=== PATIENT | female | born 1945 | race Caucasian/White ===

== ENCOUNTER → 2017-04-14 | Outpatient (CLI) | payer MEDICARE, OTHER ==
--- NOTE | 2017-04-14 10:21 | REPMRS ---
Patient History The patient states she had a clinical breast exam in February 2017. Family history of endometrial cancer in mother at age 70. Benign radio exam breast specimen of the right breast, May 13, 2016. Benign stereotatic loc for ea lesion of the right breast, May 13, 2016. Digital Mammo Screening Bilat: April 14, 2017 - Exam #: [id number] Bilateral CC and MLO view(s) were taken. Technologist: Luz Ceballos Technologist Prior study comparison: April 01, 2016, right breast digital mammo diagnostic unilateral performed at [facility]. March 25, 2016, bilateral digital mammo screening bilat performed at [facility]. FINDINGS: There are scattered fibroglandular densities. There has been no change in the appearance of the mammogram from the prior studies. There is a mild amount of residual fibroglandular tissue which is fairly symmetric. There is no interval development of dominant mass, architectural distortion, or clustered microcalcification suggestive of malignancy. ASSESSMENT: BI-RADS/ACR category 1 mammogram. Negative. Recommendation Routine screening mammogram in 1 year (for women over age 40). This mammogram was interpreted with the aid of an FDA-approved computer-aided dectection system. Electronically Signed By: Stoney Gregory MD 04/14/17 [id number]
== END ==
LOC: M RAD 08:45
PROVIDERS: ATTEND Family Medicine
DX: Z12.31 Encounter for screening mammogram for malignant neoplasm of breast (principal); Z80.49 Family history of malignant neoplasm of other genital organs

== ENCOUNTER 2018-04-13 23:46 | Inpatient (IN) | payer MEDICARE, OTHER ==
[2018-04-14] MEDS ORDERED: PROPOFOL 200 MG/20 ML VIAL As Ordered ×2 (01:38→13:58)
[2018-04-14] MEDS: PROPOFOL 200 MG/20 ML VIAL IV (01:46)
[2018-04-14 02:26] LABS: BASO % 0.2 % (0.0-1.0); EOS % 0.1 % (0.0-3.0); HEMOGLOBIN 9.4 g/dl (12.0-15.5); IMMATURE GRANULOCYTE % 0.4 % (0-3.0); LYMPH # 1.4 10^3/uL (1.5-4.5); LYMPH % 10.5 % (24.0-44.0); MEAN CORPUSCULAR HGB CONC 32.4 g/dl (32.0-36.5); MEAN CORPUSCULAR VOLUME 77.1 fl (80.0-96.0); MONO # 1.2 10^3/uL (0.0-0.8); MONO % 8.9 % (0.0-5.0); NEUTROPHILS # 10.8 10^3/uL (1.8-7.7); NEUTROPHILS % 79.9 % (36.0-66.0); PLATELET COUNT, AUTOMATED 302 10^3/uL (150-450); RED BLOOD COUNT 3.76 10^6/uL (4.00-5.40); RED CELL DISTRIBUTION WIDTH 18.1 % (11.5-14.5); WHITE BLOOD COUNT 13.6 10^3/uL (4.0-10.0)
[2018-04-14 02:38] LABS: INR 1.11; PROTHROMBIN TIME 14.5 SECONDS (12.1-14.4)
[2018-04-14 02:39] LABS: PARTIAL THROMBOPLASTIN TIME 26.1 SECONDS (25.4-37.6)
[2018-04-14] MEDS ORDERED: ACETAMINOPHEN TAB 650MG DOSE (2X325MG) PO (02:45)
[2018-04-14 02:51] LABS: ANION GAP 8 MEQ/L (8-16); BLOOD UREA NITROGEN 15 MG/DL (7-18); CALCIUM LEVEL 7.7 MG/DL (8.8-10.2); CARBON DIOXIDE LEVEL 24 MEQ/L (21-32); CHLORIDE LEVEL 101 MEQ/L (98-107); CREATININE FOR GFR 0.71 MG/DL (0.55-1.30); GLOMERULAR FILTRATION RATE > 60.0 (>39); GLUCOSE, FASTING 111 MG/DL (70-100); SODIUM LEVEL 133 MEQ/L (136-145)
[2018-04-14] MEDS: NS 1,000 ML IV ×3 (03:38→18:03)
[2018-04-14] MEDS: PERCOCET 5MG/325MG TAB PO ×2 (03:40→09:23)
[2018-04-14] MEDS: LEVOTHYROXINE 88MCG TABLET (0.088 MG) PO (05:38)
[2018-04-14 06:10] LABS: HEMATOCRIT 30.3 % (36.0-47.0); HEMOGLOBIN 9.7 g/dl (12.0-15.5); MEAN CORPUSCULAR HEMOGLOBIN 24.6 pg (27.0-33.0); MEAN CORPUSCULAR VOLUME 76.9 fl (80.0-96.0); PLATELET COUNT, AUTOMATED 309 10^3/uL (150-450); RED BLOOD COUNT 3.94 10^6/uL (4.00-5.40); RED CELL DISTRIBUTION WIDTH 18.1 % (11.5-14.5); WHITE BLOOD COUNT 13.8 10^3/uL (4.0-10.0)
[2018-04-14 06:24] LABS: INR 1.07
[2018-04-14 06:25] LABS: PARTIAL THROMBOPLASTIN TIME 26.7 SECONDS (25.4-37.6)
[2018-04-14] MEDS: ENOXAPARIN 40 MG/0.4 ML SYRINGE (J1650) SC (07:14)
[2018-04-14] MEDS: FLUTICASONE PROP 0.05% NASAL SPRAY 16 GM (FLONASE) (09:16)
[2018-04-14] MEDS: SENOKOT S TAB PO ×2 (09:16→20:08)
[2018-04-14] MEDS: MYCOLOG CREAM 15 GM (NYSTATIN/TRIAMCINOLONE) TOP ×2 (09:16→20:11)
[2018-04-14] MEDS: PERPHENAZINE 2 MG TAB PO (09:16)
[2018-04-14] MEDS: IRBESARTAN 150 MG TAB PO (09:17)
[2018-04-14] MEDS: amLODIPine 10 MG TAB PO (09:17)
[2018-04-14] MEDS: levETIRAcetam 250MG TABLET (KEPPRA) PO ×2 (09:17→20:08)
[2018-04-14] MEDS: METOPROLOL TART 50 MG TAB PO ×2 (09:18→20:09)
[2018-04-14] MEDS ORDERED: ePHEDrine SULFATE 25 MG/5 ML(5MG/ML) SYRINGE As Ordered (13:58)
[2018-04-14] MEDS ORDERED: LIDOCAINE 2% INJ 100 MG/5 ML SDV (FOR ANES.) As Ordered (13:58)
[2018-04-14] MEDS ORDERED: MIDAZOLAM INJ 2 MG/2 ML VIAL (J2250) As Ordered (13:58)
[2018-04-14] MEDS ORDERED: dexameTHASONE 4 MG/ML 1ML VIAL (J1100) As Ordered (13:58)
[2018-04-14] MEDS ORDERED: fentaNYL 100 MCG/2 ML INJECTION (J3010) As Ordered (13:58)
[2018-04-14] MEDS: ceFAZolin 2 GM/D5W 50 ML IV BAG (J0690 PER 500MG) As Ordered (14:00)
[2018-04-14] MEDS ORDERED: METOCLOPRAMIDE INJ 10MG/2ML VIAL (J2765) As Ordered (14:13)
[2018-04-14] MEDS: ceFAZolin 1GM INJ (J0690 PER 500MG) As Ordered (14:17)
[2018-04-14] MEDS ORDERED: HYDROmorphone HCL 2 MG/ML 1ML VIAL (J1170) As Ordered (15:05)
[2018-04-14] MEDS ORDERED: ONDANSETRON 4MG/2ML VIAL (J2405) As Ordered (15:07)
[2018-04-14] MEDS ORDERED: PHENYLephrine HCL 500 MCG/5 ML (100MCG/ML) SYRINGE (J2370) As Ordered (15:51)
[2018-04-14] MEDS: LR 1,000 ML IV (16:45)
[2018-04-14] MEDS ORDERED: MEPERIDINE INJ 25 MG/ML VIAL (J2175) IV (16:45)
[2018-04-14] MEDS ORDERED: PERCOCET 5MG/325MG TAB PO (16:45)
[2018-04-14] MEDS ORDERED: fentaNYL 100 MCG/2 ML INJECTION (J3010) IV (16:45)
[2018-04-14] MEDS ORDERED: ONDANSETRON 4MG/2ML VIAL (J2405) IV (16:45)
[2018-04-14] MEDS: MORPHINE 4 MG/ML 1ML VIAL/SYRINGE (J2270) IV ×2 (18:02→23:26)
[2018-04-14] MEDS: ATORVASTATIN 10 MG TAB PO (20:08)
[2018-04-14] MEDS: NYSTATIN 100,000 UNITS/GM TOPICAL PWD 15 GM TOP (22:42)
[2018-04-15] MEDS: UNRESOLVED CLARIFICATION ENTRY XX (00:01)
[2018-04-15] MEDS: zolPIDEM TARTRATE 5 MG TAB PO ×2 (01:08→22:28)
[2018-04-15] MEDS: PERCOCET 5MG/325MG TAB PO ×4 (01:09→16:52)
[2018-04-15] MEDS: LEVOTHYROXINE 88MCG TABLET (0.088 MG) PO (05:06)
[2018-04-15] MEDS: NS 1,000 ML IV (05:06)
[2018-04-15] MEDS ORDERED: MOM 30ML SUSPENSION UDC PO (06:45)
[2018-04-15 09:21] LABS: HEMATOCRIT 28.6 % (36.0-47.0); HEMOGLOBIN 9.1 g/dl (12.0-15.5); MEAN CORPUSCULAR HEMOGLOBIN 25.1 pg (27.0-33.0); MEAN CORPUSCULAR HGB CONC 31.8 g/dl (32.0-36.5); PLATELET COUNT, AUTOMATED 271 10^3/uL (150-450); RED BLOOD COUNT 3.62 10^6/uL (4.00-5.40); RED CELL DISTRIBUTION WIDTH 18.4 % (11.5-14.5); WHITE BLOOD COUNT 11.8 10^3/uL (4.0-10.0)
[2018-04-15 09:43] LABS: ANION GAP 8 MEQ/L (8-16); BLOOD UREA NITROGEN 7 MG/DL (7-18); CALCIUM LEVEL 7.9 MG/DL (8.8-10.2); CARBON DIOXIDE LEVEL 25 MEQ/L (21-32); CHLORIDE LEVEL 107 MEQ/L (98-107); CREATININE FOR GFR 0.62 MG/DL (0.55-1.30); GLOMERULAR FILTRATION RATE > 60.0 (>39); GLUCOSE, FASTING 105 MG/DL (70-100); POTASSIUM SERUM 3.9 MEQ/L (3.5-5.1); SODIUM LEVEL 140 MEQ/L (136-145)
[2018-04-15] MEDS: PREVNAR 13 VACCINE SYRINGE (CPT CODE:90670) IM (10:11)
[2018-04-15] MEDS: ENOXAPARIN 40 MG/0.4 ML SYRINGE (J1650) SC (10:12)
[2018-04-15] MEDS: MOM 30ML SUSPENSION UDC PO (10:13)
[2018-04-15] MEDS: IRBESARTAN 150 MG TAB PO (10:13)
[2018-04-15] MEDS: METOPROLOL TART 50 MG TAB PO ×2 (10:14→21:59)
[2018-04-15] MEDS: MIRALAX *UNIT DOSE* 17GM PACKET PO (10:14)
[2018-04-15] MEDS: amLODIPine 10 MG TAB PO (10:14)
[2018-04-15] MEDS: PERPHENAZINE 2 MG TAB PO ×2 (10:15→22:12)
[2018-04-15] MEDS: SENOKOT S TAB PO ×2 (10:15→22:00)
[2018-04-15] MEDS: levETIRAcetam 250MG TABLET (KEPPRA) PO ×2 (10:15→21:59)
[2018-04-15] MEDS: NYSTATIN 100,000 UNITS/GM TOPICAL PWD 15 GM TOP ×2 (10:16→22:01)
[2018-04-15] MEDS: MYCOLOG CREAM 15 GM (NYSTATIN/TRIAMCINOLONE) TOP ×2 (10:16→22:01)
[2018-04-15] MEDS: FLUTICASONE PROP 0.05% NASAL SPRAY 16 GM (FLONASE) (10:17)
[2018-04-15] MEDS ORDERED: PILL CRUSHER/CUTTER 1 EACH XX (10:30)
[2018-04-15] MEDS: MORPHINE 4 MG/ML 1ML VIAL/SYRINGE (J2270) IV ×2 (13:48→22:01)
[2018-04-15] MEDS: LANSOPRAZOLE SUSPENSION 30 MG/10 ML ORAL SYRINGE (FIRST-LANSOPRAZOLE) PO (17:21)
[2018-04-15] MEDS: ATORVASTATIN 10 MG TAB PO (21:59)
[2018-04-16] MEDS: PERCOCET 5MG/325MG TAB PO ×2 (02:15→10:22)
[2018-04-16] MEDS: MORPHINE 4 MG/ML 1ML VIAL/SYRINGE (J2270) IV ×2 (06:43→15:50)
[2018-04-16] MEDS: LEVOTHYROXINE 88MCG TABLET (0.088 MG) PO (06:43)
[2018-04-16 09:06] LABS: HEMATOCRIT 26.4 % (36.0-47.0); HEMOGLOBIN 8.5 g/dl (12.0-15.5); MEAN CORPUSCULAR HEMOGLOBIN 24.9 pg (27.0-33.0); MEAN CORPUSCULAR HGB CONC 32.2 g/dl (32.0-36.5); MEAN CORPUSCULAR VOLUME 77.4 fl (80.0-96.0); PLATELET COUNT, AUTOMATED 271 10^3/uL (150-450); RED BLOOD COUNT 3.41 10^6/uL (4.00-5.40); RED CELL DISTRIBUTION WIDTH 18.6 % (11.5-14.5); WHITE BLOOD COUNT 10.5 10^3/uL (4.0-10.0)
[2018-04-16 09:23] LABS: ANION GAP 9 MEQ/L (8-16); BLOOD UREA NITROGEN 8 MG/DL (7-18); CARBON DIOXIDE LEVEL 28 MEQ/L (21-32); CHLORIDE LEVEL 103 MEQ/L (98-107); CREATININE FOR GFR 0.61 MG/DL (0.55-1.30); GLOMERULAR FILTRATION RATE > 60.0 (>39); GLUCOSE, FASTING 104 MG/DL (70-100); POTASSIUM SERUM 3.6 MEQ/L (3.5-5.1); SODIUM LEVEL 140 MEQ/L (136-145)
[2018-04-16] MEDS: METOPROLOL TART 50 MG TAB PO (10:04)
[2018-04-16] MEDS: amLODIPine 10 MG TAB PO (10:04)
[2018-04-16] MEDS: levETIRAcetam 250MG TABLET (KEPPRA) PO (10:04)
[2018-04-16] MEDS: PERPHENAZINE 2 MG TAB PO (10:05)
[2018-04-16] MEDS: SENOKOT S TAB PO (10:06)
[2018-04-16] MEDS: ENOXAPARIN 40 MG/0.4 ML SYRINGE (J1650) SC (10:06)
[2018-04-16] MEDS: MOM 30ML SUSPENSION UDC PO (10:06)
[2018-04-16] MEDS: IRBESARTAN 150 MG TAB PO (10:06)
[2018-04-16] MEDS: MYCOLOG CREAM 15 GM (NYSTATIN/TRIAMCINOLONE) TOP (10:07)
[2018-04-16] MEDS: NYSTATIN 100,000 UNITS/GM TOPICAL PWD 15 GM TOP (10:07)
[2018-04-16] MEDS: FLUTICASONE PROP 0.05% NASAL SPRAY 16 GM (FLONASE) (10:08)
[2018-04-16] MEDS: LANSOPRAZOLE SUSPENSION 30 MG/10 ML ORAL SYRINGE (FIRST-LANSOPRAZOLE) PO (10:09)
[2018-04-16] MEDS: MIRALAX *UNIT DOSE* 17GM PACKET PO (10:09)
== END 2018-04-16 16:10 | DRG 494 ==
LOC: M ED 23:46 → M ED INP 04-14 02:40 → M MSPAV 04-14 03:21 → M MS5PR 04-14 13:08
PROC: 0QSK04Z Reposition Left Fibula with Internal Fixation Device, Open Approach (ICD-10-PCS; principal; 2018-04-14 13:00)
PROC: 0QSH04Z Reposition Left Tibia with Internal Fixation Device, Open Approach (ICD-10-PCS; 2018-04-14 13:00)
DX: S82.852A Displaced trimalleolar fracture of left lower leg, initial encounter for closed fracture (principal); W18.39XA Other fall on same level, initial encounter; Y92.012 Bathroom of single-family (private) house as the place of occurrence of the external cause; F31.9 Bipolar disorder, unspecified; I10 Essential (primary) hypertension; E78.5 Hyperlipidemia, unspecified; E03.9 Hypothyroidism, unspecified; G40.909 Epilepsy, unspecified, not intractable, without status epilepticus; M17.0 Bilateral primary osteoarthritis of knee; K21.9 Gastro-esophageal reflux disease without esophagitis; Z90.49 Acquired absence of other specified parts of digestive tract; Z79.899 Other long term (current) drug therapy

== ENCOUNTER 2018-04-16 16:15 | Inpatient (IN) | payer MEDICARE, OTHER ==
[2018-04-16] MEDS ORDERED: ONDANSETRON 4 MG TAB (S0181) PO (18:45)
[2018-04-16] MEDS: PERPHENAZINE 2 MG TAB PO (21:02)
[2018-04-16] MEDS: METOPROLOL TART 50 MG TAB PO (21:03)
[2018-04-16] MEDS: SENNA 8.6 MG TAB (SENOKOT) PO (21:03)
[2018-04-16] MEDS: ASPIRIN 81 MG ENTERIC TAB PO (21:03)
[2018-04-16] MEDS: ATORVASTATIN 10 MG TAB PO (21:03)
[2018-04-16] MEDS: levETIRAcetam 250MG TABLET (KEPPRA) PO (21:03)
[2018-04-16] MEDS: MYCOLOG CREAM 15 GM (NYSTATIN/TRIAMCINOLONE) TOP (21:04)
[2018-04-16] MEDS: DOCUSATE SODIUM 100 MG CAP PO (21:04)
[2018-04-16] MEDS: PERCOCET 5MG/325MG TAB PO (21:04)
[2018-04-16] MEDS: LIDOCAINE 5% (LIDODERM) PATCH TD ×2 (21:05)
[2018-04-16] MEDS: traZODone 25MG PER 1/2 TABLET PO (23:21)
[2018-04-17 00:21] LABS: APPEARANCE, URINE CLEAR (CLEAR); BACTERIA, URINE AUTO 1+ (NEGATIVE); BILIRUBIN, URINE AUTO NEGATIVE (NEGATIVE); BLOOD, URINE BLOOD NEGATIVE (NEGATIVE); COLOR, URINE YELLOW (YELLOW); GLUCOSE, URINE (UA) AUTO NEGATIVE (NEGATIVE); KETONE, URINE AUTO NEGATIVE (NEGATIVE); LEUKOCYTE ESTERASE, URINE AUTO NEGATIVE (NEGATIVE); NITRITE, URINE AUTO NEGATIVE (NEGATIVE); PROTEIN, URINE AUTO NEGATIVE (NEGATIVE); RBC, URINE AUTO 1 /HPF (0-3); SPECIFIC GRAVITY URINE AUTO 1.011 (1.002-1.035); SQUAMOUS EPITHELIAL CELL UR AU 0 /HPF (0-6); UROBILINOGEN, URINE AUTO 0.2 mg/dL (0.0-2.0); WBC, URINE AUTO 2 /HPF (0-3)
[2018-04-17] MEDS: PERCOCET 5MG/325MG TAB PO ×4 (04:11→21:59)
[2018-04-17] MEDS: LEVOTHYROXINE 88MCG TABLET (0.088 MG) PO (05:30)
[2018-04-17 06:02] LABS: BASO % 0.5 % (0.0-1.0); EOS # 0.1 10^3/uL (0.0-0.50); EOS % 1.4 % (0.0-3.0); HEMATOCRIT 25.4 % (36.0-47.0); HEMOGLOBIN 8.2 g/dl (12.0-15.5); IMMATURE GRANULOCYTE % 0.4 % (0-3.0); LYMPH # 1.7 10^3/uL (1.5-4.5); LYMPH % 20.9 % (24.0-44.0); MEAN CORPUSCULAR HEMOGLOBIN 24.8 pg (27.0-33.0); MEAN CORPUSCULAR HGB CONC 32.3 g/dl (32.0-36.5); MEAN CORPUSCULAR VOLUME 76.7 fl (80.0-96.0); MONO % 12.8 % (0.0-5.0); NEUTROPHILS # 5.2 10^3/uL (1.8-7.7); PLATELET COUNT, AUTOMATED 262 10^3/uL (150-450); RED BLOOD COUNT 3.31 10^6/uL (4.00-5.40); RED CELL DISTRIBUTION WIDTH 18.6 % (11.5-14.5); WHITE BLOOD COUNT 8.1 10^3/uL (4.0-10.0)
[2018-04-17 06:35] LABS: ALBUMIN 2.2 GM/DL (3.2-5.2); ALBUMIN/GLOBULIN RATIO 0.65 (1.00-1.93); ALKALINE PHOSPHATASE 52 U/L (45-117); ALT/SGPT 15 U/L (12-78); ANION GAP 6 MEQ/L (8-16); AST/SGOT 21 U/L (7-37); BILIRUBIN,TOTAL 0.3 MG/DL (0.2-1.0); BLOOD UREA NITROGEN 10 MG/DL (7-18); CALCIUM LEVEL 7.9 MG/DL (8.8-10.2); CARBON DIOXIDE LEVEL 29 MEQ/L (21-32); CHLORIDE LEVEL 104 MEQ/L (98-107); CREATININE FOR GFR 0.52 MG/DL (0.55-1.30); GLOMERULAR FILTRATION RATE > 60.0 (>39); GLUCOSE, FASTING 116 MG/DL (70-100); POTASSIUM SERUM 3.5 MEQ/L (3.5-5.1); SODIUM LEVEL 139 MEQ/L (136-145); TOTAL PROTEIN 5.6 GM/DL (6.4-8.2)
[2018-04-17] MEDS: MYCOLOG CREAM 15 GM (NYSTATIN/TRIAMCINOLONE) TOP ×2 (09:00→22:01)
[2018-04-17] MEDS: **NOTE PATIENT COMMENT** MISC XX ×2 (09:00)
[2018-04-17] MEDS ORDERED: ENOXAPARIN 40 MG/0.4 ML SYRINGE (J1650) SC (09:00)
[2018-04-17] MEDS: NYSTATIN 100,000 UNITS/GM TOPICAL PWD 15 GM TOP (09:22)
[2018-04-17] MEDS: ENOXAPARIN 40 MG/0.4 ML SYRINGE (J1650) SC (09:22)
[2018-04-17] MEDS: PERPHENAZINE 2 MG TAB PO (09:23)
[2018-04-17] MEDS: FLUTICASONE PROP 0.05% NASAL SPRAY 16 GM (FLONASE) (09:23)
[2018-04-17] MEDS: IRBESARTAN 150 MG TAB PO (09:24)
[2018-04-17] MEDS: amLODIPine 10 MG TAB PO (09:24)
[2018-04-17] MEDS: METOPROLOL TART 50 MG TAB PO ×2 (09:24→22:00)
[2018-04-17] MEDS: levETIRAcetam 250MG TABLET (KEPPRA) PO ×2 (09:25→22:01)
[2018-04-17] MEDS: PANTOPRAZOLE 40MG TAB (PROTONIX) PO (09:25)
[2018-04-17] MEDS: DOCUSATE SODIUM 100 MG CAP PO ×2 (09:25→22:00)
[2018-04-17] MEDS: LIDOCAINE 5% (LIDODERM) PATCH TD ×2 (21:57→21:58)
[2018-04-17] MEDS: PERPHENAZINE 8 MG PO (21:58)
[2018-04-17] MEDS: ATORVASTATIN 10 MG TAB PO (21:59)
[2018-04-17] MEDS: SENNA 8.6 MG TAB (SENOKOT) PO (22:00)
[2018-04-17] MEDS: ASPIRIN 81 MG ENTERIC TAB PO (22:00)
[2018-04-17] MEDS: traZODone 25MG PER 1/2 TABLET PO (22:14)
[2018-04-18] MEDS: LEVOTHYROXINE 88MCG TABLET (0.088 MG) PO (05:35)
[2018-04-18] MEDS: PERCOCET 5MG/325MG TAB PO ×4 (05:37→20:48)
[2018-04-18] MEDS: DOCUSATE SODIUM 100 MG CAP PO ×2 (09:00→20:32)
[2018-04-18] MEDS: **NOTE PATIENT COMMENT** MISC XX ×2 (09:00)
[2018-04-18] MEDS: METOPROLOL TART 50 MG TAB PO ×3 (09:32→20:46)
[2018-04-18] MEDS: PANTOPRAZOLE 40MG TAB (PROTONIX) PO (09:32)
[2018-04-18] MEDS: amLODIPine 10 MG TAB PO (09:32)
[2018-04-18] MEDS: levETIRAcetam 250MG TABLET (KEPPRA) PO ×2 (09:32→20:32)
[2018-04-18] MEDS: IRBESARTAN 150 MG TAB PO (09:32)
[2018-04-18] MEDS: ENOXAPARIN 40 MG/0.4 ML SYRINGE (J1650) SC (09:33)
[2018-04-18] MEDS: PERPHENAZINE 8 MG PO ×2 (09:33→20:32)
[2018-04-18] MEDS: FLUTICASONE PROP 0.05% NASAL SPRAY 16 GM (FLONASE) (09:33)
[2018-04-18] MEDS: NYSTATIN 100,000 UNITS/GM TOPICAL PWD 15 GM TOP (09:34)
[2018-04-18] MEDS: MYCOLOG CREAM 15 GM (NYSTATIN/TRIAMCINOLONE) TOP ×2 (09:35→20:33)
[2018-04-18] MEDS: SENNA 8.6 MG TAB (SENOKOT) PO (20:32)
[2018-04-18] MEDS: ASPIRIN 81 MG ENTERIC TAB PO (20:32)
[2018-04-18] MEDS: ATORVASTATIN 10 MG TAB PO (20:33)
[2018-04-18] MEDS: LIDOCAINE 5% (LIDODERM) PATCH TD ×2 (20:39→20:51)
[2018-04-18] MEDS: traZODone 25MG PER 1/2 TABLET PO (23:25)
[2018-04-19] MEDS: LEVOTHYROXINE 88MCG TABLET (0.088 MG) PO (05:25)
[2018-04-19] MEDS: PERCOCET 5MG/325MG TAB PO ×4 (05:26→21:03)
[2018-04-19 07:26] LABS: BASO % 0.5 % (0.0-1.0); EOS # 0.1 10^3/uL (0.0-0.50); EOS % 1.5 % (0.0-3.0); HEMATOCRIT 26.2 % (36.0-47.0); HEMOGLOBIN 8.3 g/dl (12.0-15.5); IMMATURE GRANULOCYTE % 0.5 % (0-3.0); LYMPH # 1.4 10^3/uL (1.5-4.5); LYMPH % 23.3 % (24.0-44.0); MEAN CORPUSCULAR HEMOGLOBIN 24.6 pg (27.0-33.0); MEAN CORPUSCULAR HGB CONC 31.7 g/dl (32.0-36.5); MEAN CORPUSCULAR VOLUME 77.7 fl (80.0-96.0); MONO # 0.8 10^3/uL (0.0-0.8); MONO % 12.8 % (0.0-5.0); NEUTROPHILS # 3.8 10^3/uL (1.8-7.7); NEUTROPHILS % 61.4 % (36.0-66.0); PLATELET COUNT, AUTOMATED 319 10^3/uL (150-450); RED BLOOD COUNT 3.37 10^6/uL (4.00-5.40); RED CELL DISTRIBUTION WIDTH 18.5 % (11.5-14.5); WHITE BLOOD COUNT 6.2 10^3/uL (4.0-10.0)
[2018-04-19 07:39] LABS: ANION GAP 8 MEQ/L (8-16); BLOOD UREA NITROGEN 10 MG/DL (7-18); CALCIUM LEVEL 8.1 MG/DL (8.8-10.2); CARBON DIOXIDE LEVEL 27 MEQ/L (21-32); CHLORIDE LEVEL 104 MEQ/L (98-107); CREATININE FOR GFR 0.62 MG/DL (0.55-1.30); GLOMERULAR FILTRATION RATE > 60.0 (>39); GLUCOSE, FASTING 121 MG/DL (70-100); POTASSIUM SERUM 3.3 MEQ/L (3.5-5.1); SODIUM LEVEL 139 MEQ/L (136-145)
[2018-04-19] MEDS: levETIRAcetam 250MG TABLET (KEPPRA) PO ×2 (08:37→21:02)
[2018-04-19] MEDS: DOCUSATE SODIUM 100 MG CAP PO ×2 (08:37→21:03)
[2018-04-19] MEDS: PANTOPRAZOLE 40MG TAB (PROTONIX) PO (08:37)
[2018-04-19] MEDS: amLODIPine 10 MG TAB PO (08:37)
[2018-04-19] MEDS: IRBESARTAN 150 MG TAB PO (08:37)
[2018-04-19] MEDS: PERPHENAZINE 8 MG PO ×2 (08:37→21:01)
[2018-04-19] MEDS: NYSTATIN 100,000 UNITS/GM TOPICAL PWD 15 GM TOP (08:39)
[2018-04-19] MEDS: FLUTICASONE PROP 0.05% NASAL SPRAY 16 GM (FLONASE) (08:39)
[2018-04-19] MEDS: MYCOLOG CREAM 15 GM (NYSTATIN/TRIAMCINOLONE) TOP ×2 (08:40→21:05)
[2018-04-19] MEDS: **NOTE PATIENT COMMENT** MISC XX ×2 (08:40)
[2018-04-19] MEDS: ENOXAPARIN 40 MG/0.4 ML SYRINGE (J1650) SC (09:51)
[2018-04-19] MEDS: METOPROLOL TART 50 MG TAB PO ×2 (09:52→21:02)
[2018-04-19] MEDS: POTASSIUM CHLORIDE 10 MEQ SR TABLET PO (16:12)
[2018-04-19] MEDS: POTASSIUM CHLORIDE 10% LIQ 20 MEQ/15 ML UDC PO (17:37)
[2018-04-19] MEDS: ATORVASTATIN 10 MG TAB PO (21:02)
[2018-04-19] MEDS: SENNA 8.6 MG TAB (SENOKOT) PO (21:02)
[2018-04-19] MEDS: ASPIRIN 81 MG ENTERIC TAB PO (21:03)
[2018-04-19] MEDS: LIDOCAINE 5% (LIDODERM) PATCH TD ×2 (21:04)
[2018-04-20] MEDS: traZODone 25MG PER 1/2 TABLET PO ×2 (00:10→22:54)
[2018-04-20] MEDS: PERCOCET 5MG/325MG TAB PO ×4 (03:23→21:47)
[2018-04-20] MEDS: LEVOTHYROXINE 88MCG TABLET (0.088 MG) PO (06:52)
[2018-04-20 07:29] LABS: ANION GAP 7 MEQ/L (8-16); BLOOD UREA NITROGEN 10 MG/DL (7-18); CALCIUM LEVEL 8.7 MG/DL (8.8-10.2); CARBON DIOXIDE LEVEL 27 MEQ/L (21-32); CHLORIDE LEVEL 104 MEQ/L (98-107); GLOMERULAR FILTRATION RATE > 60.0 (>39); GLUCOSE, FASTING 121 MG/DL (70-100); POTASSIUM SERUM 3.6 MEQ/L (3.5-5.1); SODIUM LEVEL 138 MEQ/L (136-145)
[2018-04-20] MEDS: DOCUSATE SODIUM 100 MG CAP PO ×2 (09:00→21:48)
[2018-04-20] MEDS: NYSTATIN 100,000 UNITS/GM TOPICAL PWD 15 GM TOP (09:00)
[2018-04-20] MEDS: FLUTICASONE PROP 0.05% NASAL SPRAY 16 GM (FLONASE) (09:00)
[2018-04-20] MEDS: **NOTE PATIENT COMMENT** MISC XX ×2 (09:00)
[2018-04-20] MEDS: ENOXAPARIN 40 MG/0.4 ML SYRINGE (J1650) SC (09:04)
[2018-04-20] MEDS: POTASSIUM CHLORIDE 10% LIQ 20 MEQ/15 ML UDC PO (09:04)
[2018-04-20] MEDS: IRBESARTAN 150 MG TAB PO (09:05)
[2018-04-20] MEDS: PERPHENAZINE 8 MG PO ×2 (09:05→21:47)
[2018-04-20] MEDS: levETIRAcetam 250MG TABLET (KEPPRA) PO ×2 (09:06→21:47)
[2018-04-20] MEDS: METOPROLOL TART 50 MG TAB PO ×2 (09:06→21:48)
[2018-04-20] MEDS: PANTOPRAZOLE 40MG TAB (PROTONIX) PO (09:06)
[2018-04-20] MEDS: amLODIPine 10 MG TAB PO (09:07)
[2018-04-20] MEDS: MYCOLOG CREAM 15 GM (NYSTATIN/TRIAMCINOLONE) TOP ×2 (10:38→21:49)
[2018-04-20] MEDS: SENNA 8.6 MG TAB (SENOKOT) PO (21:47)
[2018-04-20] MEDS: ASPIRIN 81 MG ENTERIC TAB PO (21:48)
[2018-04-20] MEDS: ATORVASTATIN 10 MG TAB PO (21:48)
[2018-04-20] MEDS: LIDOCAINE 5% (LIDODERM) PATCH TD ×2 (21:48)
[2018-04-21] MEDS: LEVOTHYROXINE 88MCG TABLET (0.088 MG) PO (06:22)
[2018-04-21] MEDS: PERCOCET 5MG/325MG TAB PO (06:23)
[2018-04-21] MEDS: NYSTATIN 100,000 UNITS/GM TOPICAL PWD 15 GM TOP (08:31)
[2018-04-21] MEDS: MYCOLOG CREAM 15 GM (NYSTATIN/TRIAMCINOLONE) TOP ×2 (08:32→21:59)
[2018-04-21] MEDS: DOCUSATE SODIUM 100 MG CAP PO ×3 (08:32→21:00)
[2018-04-21] MEDS: POTASSIUM CHLORIDE 10% LIQ 20 MEQ/15 ML UDC PO ×2 (08:32→09:00)
[2018-04-21] MEDS: PANTOPRAZOLE 40MG TAB (PROTONIX) PO ×2 (08:32→09:00)
[2018-04-21] MEDS: ENOXAPARIN 40 MG/0.4 ML SYRINGE (J1650) SC (08:33)
[2018-04-21] MEDS: IRBESARTAN 150 MG TAB PO ×2 (08:33→09:00)
[2018-04-21] MEDS: PERPHENAZINE 8 MG PO ×3 (08:33→21:00)
[2018-04-21] MEDS: levETIRAcetam 250MG TABLET (KEPPRA) PO ×3 (08:33→21:00)
[2018-04-21] MEDS: amLODIPine 10 MG TAB PO ×2 (08:33→09:00)
[2018-04-21] MEDS: FLUTICASONE PROP 0.05% NASAL SPRAY 16 GM (FLONASE) (08:34)
[2018-04-21] MEDS: **NOTE PATIENT COMMENT** MISC XX ×2 (08:52)
[2018-04-21] MEDS: METOPROLOL TART 50 MG TAB PO ×2 (10:00→21:00)
[2018-04-21] MEDS ORDERED: VARIBAR PUDDING 40% w/v 230ML TUBE As Ordered (13:46)
[2018-04-21] MEDS ORDERED: VARIBAR NECTAR 40% w/v 240ML SUSP BTL As Ordered ×2 (13:46→13:48)
[2018-04-21] MEDS ORDERED: E-Z-GAS II EFFERVESCENT PACKET (SODIUM BICARB./CITRIC ACID/SIMETHICONE) As Ordered (13:47)
[2018-04-21] MEDS ORDERED: E-Z-HD 98% w/w 340GM SUSP BTL As Ordered (13:47)
[2018-04-21] MEDS ORDERED: E-Z-PAQUE 96% w/w SUSP 176GM BTL As Ordered (13:47)
[2018-04-21] MEDS: D5W/0.9% SODIUM CHLORIDE 1,000 ML IV (15:11)
[2018-04-21] MEDS ORDERED: ACETAMINOPHEN 650 MG SUPP PR (15:15)
[2018-04-21] MEDS: MORPHINE 4 MG/ML 1ML VIAL/SYRINGE (J2270) IV ×2 (15:25→19:53)
[2018-04-21] MEDS: ASPIRIN 81 MG ENTERIC TAB PO (21:00)
[2018-04-21] MEDS: SENNA 8.6 MG TAB (SENOKOT) PO (21:00)
[2018-04-21] MEDS: LIDOCAINE 5% (LIDODERM) PATCH TD ×2 (21:58)
[2018-04-21] MEDS: ATORVASTATIN 10 MG TAB PO (22:07)
[2018-04-22] MEDS: MORPHINE 4 MG/ML 1ML VIAL/SYRINGE (J2270) IV ×3 (03:45→15:55)
[2018-04-22] MEDS: LEVOTHYROXINE 88MCG TABLET (0.088 MG) PO (06:00)
[2018-04-22 07:42] LABS: BASO % 0.2 % (0.0-1.0); EOS # 0.1 10^3/uL (0.0-0.50); EOS % 0.6 % (0.0-3.0); HEMATOCRIT 25.7 % (36.0-47.0); HEMOGLOBIN 8.1 g/dl (12.0-15.5); IMMATURE GRANULOCYTE % 0.6 % (0-3.0); LYMPH # 1.6 10^3/uL (1.5-4.5); LYMPH % 14.6 % (24.0-44.0); MEAN CORPUSCULAR HEMOGLOBIN 24.8 pg (27.0-33.0); MEAN CORPUSCULAR HGB CONC 31.5 g/dl (32.0-36.5); MEAN CORPUSCULAR VOLUME 78.6 fl (80.0-96.0); MONO % 8.8 % (0.0-5.0); NEUTROPHILS # 8.3 10^3/uL (1.8-7.7); NEUTROPHILS % 75.2 % (36.0-66.0); PLATELET COUNT, AUTOMATED 358 10^3/uL (150-450); RED BLOOD COUNT 3.27 10^6/uL (4.00-5.40); RED CELL DISTRIBUTION WIDTH 19.3 % (11.5-14.5); WHITE BLOOD COUNT 11.1 10^3/uL (4.0-10.0)
[2018-04-22] MEDS: IRBESARTAN 150 MG TAB PO (07:54)
[2018-04-22] MEDS: DOCUSATE SODIUM 100 MG CAP PO ×2 (07:54→21:00)
[2018-04-22] MEDS: levETIRAcetam 250MG TABLET (KEPPRA) PO ×2 (07:55→21:54)
[2018-04-22] MEDS: PERPHENAZINE 8 MG PO ×2 (07:55→21:59)
[2018-04-22] MEDS: POTASSIUM CHLORIDE 10% LIQ 20 MEQ/15 ML UDC PO (07:55)
[2018-04-22] MEDS: amLODIPine 10 MG TAB PO (07:55)
[2018-04-22] MEDS: PANTOPRAZOLE 40MG TAB (PROTONIX) PO (07:56)
[2018-04-22 08:05] LABS: ANION GAP 9 MEQ/L (8-16); BLOOD UREA NITROGEN 14 MG/DL (7-18); CALCIUM LEVEL 8.1 MG/DL (8.8-10.2); CARBON DIOXIDE LEVEL 24 MEQ/L (21-32); CHLORIDE LEVEL 106 MEQ/L (98-107); CREATININE FOR GFR 0.59 MG/DL (0.55-1.30); GLOMERULAR FILTRATION RATE > 60.0 (>39); GLUCOSE, FASTING 104 MG/DL (70-100); POTASSIUM SERUM 3.2 MEQ/L (3.5-5.1); SODIUM LEVEL 139 MEQ/L (136-145)
[2018-04-22] MEDS: NYSTATIN 100,000 UNITS/GM TOPICAL PWD 15 GM TOP (08:15)
[2018-04-22] MEDS: MYCOLOG CREAM 15 GM (NYSTATIN/TRIAMCINOLONE) TOP ×2 (08:15→21:57)
[2018-04-22] MEDS: **NOTE PATIENT COMMENT** MISC XX ×2 (08:16)
[2018-04-22] MEDS: FLUTICASONE PROP 0.05% NASAL SPRAY 16 GM (FLONASE) (08:16)
[2018-04-22] MEDS: ENOXAPARIN 40 MG/0.4 ML SYRINGE (J1650) SC (09:00)
[2018-04-22] MEDS: METOPROLOL TART 50 MG TAB PO ×2 (10:00→21:58)
[2018-04-22] MEDS: D5W/0.9% SODIUM CHLORIDE 1,000 ML IV (13:25)
[2018-04-22] MEDS ORDERED: PROPOFOL 200 MG/20 ML VIAL As Ordered ×2 (14:16)
[2018-04-22] MEDS ORDERED: LIDOCAINE 2% INJ 100 MG/5 ML SDV (FOR ANES.) As Ordered (14:16)
[2018-04-22] MEDS: PANTOPRAZOLE 40MG INJ (PROTONIX) (C9113) IV (17:58)
[2018-04-22] MEDS: ATORVASTATIN 10 MG TAB PO (21:55)
[2018-04-22] MEDS: ASPIRIN 81 MG ENTERIC TAB PO (21:55)
[2018-04-22] MEDS: SENNA 8.6 MG TAB (SENOKOT) PO (21:58)
[2018-04-22] MEDS: LIDOCAINE 5% (LIDODERM) PATCH TD ×2 (22:15)
[2018-04-22] MEDS: traZODone 25MG PER 1/2 TABLET PO (22:15)
[2018-04-23] MEDS: MORPHINE 4 MG/ML 1ML VIAL/SYRINGE (J2270) IV ×3 (00:50→17:12)
[2018-04-23] MEDS: LEVOTHYROXINE 88MCG TABLET (0.088 MG) PO (05:36)
[2018-04-23] MEDS: IRBESARTAN 150 MG TAB PO (07:12)
[2018-04-23] MEDS: **NOTE PATIENT COMMENT** MISC XX ×2 (09:00)
[2018-04-23] MEDS: METOPROLOL TART 50 MG TAB PO ×2 (10:00→20:15)
[2018-04-23] MEDS: POTASSIUM CHLORIDE 10% LIQ 20 MEQ/15 ML UDC PO (10:37)
[2018-04-23] MEDS: PERPHENAZINE 8 MG PO ×2 (10:37→20:13)
[2018-04-23] MEDS: DOCUSATE SODIUM 100 MG CAP PO ×2 (10:37→20:15)
[2018-04-23] MEDS: PANTOPRAZOLE 40MG INJ (PROTONIX) (C9113) IV (10:37)
[2018-04-23] MEDS: ENOXAPARIN 40 MG/0.4 ML SYRINGE (J1650) SC (10:38)
[2018-04-23] MEDS: FLUTICASONE PROP 0.05% NASAL SPRAY 16 GM (FLONASE) (10:38)
[2018-04-23] MEDS: levETIRAcetam 250MG TABLET (KEPPRA) PO ×2 (10:38→20:14)
[2018-04-23] MEDS: MYCOLOG CREAM 15 GM (NYSTATIN/TRIAMCINOLONE) TOP ×2 (10:39→20:18)
[2018-04-23] MEDS: NYSTATIN 100,000 UNITS/GM TOPICAL PWD 15 GM TOP (10:39)
[2018-04-23] MEDS: KCL 10MEQ/100ML SWI (KRUN) 10 MEQ in APPROPRIATE DILUENT 1 EA IV ×4 (12:31→17:12)
[2018-04-23] MEDS: ASPIRIN 81 MG ENTERIC TAB PO (20:14)
[2018-04-23] MEDS: LIDOCAINE 5% (LIDODERM) PATCH TD ×2 (20:14)
[2018-04-23] MEDS: SENNA 8.6 MG TAB (SENOKOT) PO (20:15)
[2018-04-23] MEDS: ATORVASTATIN 10 MG TAB PO (20:15)
[2018-04-23] MEDS: ACETAMINOPHEN TAB 650MG DOSE (2X325MG) PO (20:16)
[2018-04-23] MEDS: traZODone 25MG PER 1/2 TABLET PO (22:26)
[2018-04-24] MEDS: MORPHINE 4 MG/ML 1ML VIAL/SYRINGE (J2270) IV (00:28)
[2018-04-24] MEDS: LEVOTHYROXINE 88MCG TABLET (0.088 MG) PO (05:47)
[2018-04-24] MEDS: ACETAMINOPHEN TAB 650MG DOSE (2X325MG) PO ×2 (05:47→10:02)
[2018-04-24] MEDS: IRBESARTAN 150 MG TAB PO (06:50)
[2018-04-24 07:40] LABS: ANION GAP 8 MEQ/L (8-16); BLOOD UREA NITROGEN 11 MG/DL (7-18); CALCIUM LEVEL 8.2 MG/DL (8.8-10.2); CARBON DIOXIDE LEVEL 26 MEQ/L (21-32); CHLORIDE LEVEL 105 MEQ/L (98-107); CREATININE FOR GFR 0.66 MG/DL (0.55-1.30); GLOMERULAR FILTRATION RATE > 60.0 (>39); GLUCOSE, FASTING 122 MG/DL (70-100); SODIUM LEVEL 139 MEQ/L (136-145)
[2018-04-24] MEDS: **NOTE PATIENT COMMENT** MISC XX ×2 (09:00)
[2018-04-24] MEDS: DOCUSATE SODIUM 100 MG CAP PO (10:01)
[2018-04-24] MEDS: ENOXAPARIN 40 MG/0.4 ML SYRINGE (J1650) SC (10:01)
[2018-04-24] MEDS: PERPHENAZINE 8 MG PO (10:01)
[2018-04-24] MEDS: levETIRAcetam 250MG TABLET (KEPPRA) PO (10:01)
[2018-04-24] MEDS: PANTOPRAZOLE 40MG TAB (PROTONIX) PO (10:01)
[2018-04-24] MEDS: METOPROLOL TART 50 MG TAB PO (10:02)
[2018-04-24] MEDS: FLUTICASONE PROP 0.05% NASAL SPRAY 16 GM (FLONASE) (10:03)
[2018-04-24] MEDS: POTASSIUM CHLORIDE 10% LIQ 20 MEQ/15 ML UDC PO (10:03)
[2018-04-24] MEDS: NYSTATIN 100,000 UNITS/GM TOPICAL PWD 15 GM TOP (10:04)
[2018-04-24] MEDS: MYCOLOG CREAM 15 GM (NYSTATIN/TRIAMCINOLONE) TOP (10:04)
[2018-04-24 13:00] LABS: HEMATOCRIT 29.1 % (36.0-47.0); MEAN CORPUSCULAR HEMOGLOBIN 24.7 pg (27.0-33.0); MEAN CORPUSCULAR HGB CONC 30.9 g/dl (32.0-36.5); MEAN CORPUSCULAR VOLUME 79.7 fl (80.0-96.0); PLATELET COUNT, AUTOMATED 366 10^3/uL (150-450); RED BLOOD COUNT 3.65 10^6/uL (4.00-5.40); RED CELL DISTRIBUTION WIDTH 19.7 % (11.5-14.5); WHITE BLOOD COUNT 6.6 10^3/uL (4.0-10.0)
[2018-04-24] MEDS ORDERED: NS 1,000 ML IV (13:00)
== END 2018-04-24 14:27 | disposition short-term general hospital (02) | DRG 559 ==
LOC: M PM&R 04-21 11:00 → M ICU 04-24 14:23 → M PM&R 16:15
PROC: 0D758DZ Dilation of Esophagus with Intraluminal Device, Via Natural or Artificial Opening Endoscopic (ICD-10-PCS; principal; 2018-04-22 13:30)
DX: S82.852D Displaced trimalleolar fracture of left lower leg, subsequent encounter for closed fracture with routine healing (principal); J96.01 Acute respiratory failure with hypoxia; D62 Acute posthemorrhagic anemia; M17.0 Bilateral primary osteoarthritis of knee; F31.9 Bipolar disorder, unspecified; I10 Essential (primary) hypertension; E78.5 Hyperlipidemia, unspecified; K21.9 Gastro-esophageal reflux disease without esophagitis; W19.XXXD Unspecified fall, subsequent encounter; Y92.009 Unspecified place in unspecified non-institutional (private) residence as the place of occurrence of the external cause; M19.012 Primary osteoarthritis, left shoulder; E03.9 Hypothyroidism, unspecified; M25.512 Pain in left shoulder; R13.10 Dysphagia, unspecified; K22.5 Diverticulum of esophagus, acquired; K22.2 Esophageal obstruction; Z79.82 Long term (current) use of aspirin; Z79.899 Other long term (current) drug therapy

== ENCOUNTER 2018-04-24 14:34 | Inpatient (IN) | payer MEDICARE, OTHER ==
[2018-04-24] MEDS: ETOMIDATE INJ 20MG/10ML VIAL IV (14:15)
[2018-04-24] MEDS: SUCCINYLCHOLINE INJ 200 MG/10 ML VIAL (J0330) IV (14:15)
[~2018-04-24 14:34] MED LIST: ETOMIDATE INJ 20MG/10ML VIAL As Ordered; PROPOFOL 1,000 MG/100 ML VIAL As Ordered; SUCCINYLCHOLINE INJ 200 MG/10 ML VIAL (J0330) As Ordered
[2018-04-24] MEDS: NS 500 ML IV (14:45)
[2018-04-24] MEDS ORDERED: PROPOFOL 1,000 MG in APPROPRIATE DILUENT 1 EA IV (15:00)
[2018-04-24 15:13] LABS: ABG BASE EXCESS -3.3 (-2.0-2.0); ABG HCO3 20.6 MEQ/L (22.0-26.0); ABG O2 SATURATION 96.5 % (95.0-99.0); ABG PARTIAL PRESSURE CO2 32.2 mmHg (35.0-45.0); ABG PARTIAL PRESSURE O2 88.9 mmHg (75.0-100.0); ABG STANDARD HCO3 21.7 MEQ/L (22.0-26.0); ABG TOTAL CO2 21.6 MEQ/L (23.0-31.0); ABG pH (ARTERIAL) 7.424 UNITS (7.350-7.450)
[2018-04-24] MEDS ORDERED: ACETAMINOPHEN 650 MG SUPP PR (15:15)
[2018-04-24] MEDS ORDERED: ONDANSETRON 4 MG TAB (S0181) PO (15:30)
[2018-04-24] MEDS: MIDAZOLAM INJ 2 MG/2 ML VIAL (J2250) IV ×2 (15:44→18:22)
[2018-04-24] MEDS ORDERED: LIDOCAINE 1% MDV 20ML VIAL As Ordered (15:46)
[2018-04-24] MEDS: ALBUTEROL SULFATE 2.5 MG/0.5 ML INH NEB SOLN NEB ×2 (16:01→20:34)
[2018-04-24] MEDS: PROPOFOL 1,000 MG in APPROPRIATE DILUENT 1 EA IV ×2 (17:50→22:28)
[2018-04-24] MEDS: NS 1,000 ML IV ×2 (17:50→23:14)
[2018-04-24] MEDS: AMPICILLIN SOD/SULBACTAM SOD 3 GM in D5W MINI-BAG PLUS 100 ML IV ×2 (18:59→23:13)
[2018-04-24] MEDS: DOCUSATE SODIUM 100 MG CAP PO (20:01)
[2018-04-24] MEDS: ASPIRIN 81 MG ENTERIC TAB PO (20:04)
[2018-04-24] MEDS: METOPROLOL TART 50 MG TAB PO (20:26)
[2018-04-24] MEDS ORDERED: PILL CRUSHER/CUTTER 1 EACH XX (20:45)
[2018-04-24] MEDS: PERPHENAZINE 8 MG PO (21:13)
[2018-04-24] MEDS: SENNA 8.6 MG TAB (SENOKOT) PO (21:13)
[2018-04-24] MEDS: levETIRAcetam 250MG TABLET (KEPPRA) PO (21:13)
[2018-04-24] MEDS: ATORVASTATIN 10 MG TAB PO (21:13)
[2018-04-24] MEDS: LIDOCAINE 5% (LIDODERM) PATCH TD (21:14)
[2018-04-24] MEDS: MYCOLOG CREAM 15 GM (NYSTATIN/TRIAMCINOLONE) TOP (21:15)
[2018-04-24] MEDS: CHLORHEXIDINE ORAL RINSE 0.12%/15ML 120ML BOTTLE MT (21:15)
[2018-04-24] MEDS: ACETAMINOPHEN TAB 650MG DOSE (2X325MG) PO (23:45)
[2018-04-25 04:45] LABS: HEMATOCRIT 23.9 % (36.0-47.0); HEMOGLOBIN 7.4 g/dl (12.0-15.5); MEAN CORPUSCULAR HEMOGLOBIN 24.7 pg (27.0-33.0); MEAN CORPUSCULAR VOLUME 79.7 fl (80.0-96.0); PLATELET COUNT, AUTOMATED 271 10^3/uL (150-450); RED CELL DISTRIBUTION WIDTH 19.8 % (11.5-14.5); WHITE BLOOD COUNT 13.6 10^3/uL (4.0-10.0)
[2018-04-25 05:30] LABS: ANION GAP 8 MEQ/L (8-16); BLOOD UREA NITROGEN 16 MG/DL (7-18); CALCIUM LEVEL 7.4 MG/DL (8.8-10.2); CARBON DIOXIDE LEVEL 26 MEQ/L (21-32); CHLORIDE LEVEL 108 MEQ/L (98-107); CREATININE FOR GFR 0.73 MG/DL (0.55-1.30); GLOMERULAR FILTRATION RATE > 60.0 (>39); GLUCOSE, FASTING 105 MG/DL (70-100); POTASSIUM SERUM 3.7 MEQ/L (3.5-5.1); SODIUM LEVEL 142 MEQ/L (136-145)
[2018-04-25] MEDS: LEVOTHYROXINE 88MCG TABLET (0.088 MG) PO (05:34)
[2018-04-25] MEDS: AMPICILLIN SOD/SULBACTAM SOD 3 GM in D5W MINI-BAG PLUS 100 ML IV ×4 (05:34→23:18)
[2018-04-25] MEDS ORDERED: HEPARIN SOD (PORCINE) 5000 UNITS/ML VIAL SC (06:00)
[2018-04-25 06:43] LABS: ABG BASE EXCESS 2.4 (-2.0-2.0); ABG HCO3 25.3 MEQ/L (22.0-26.0); ABG O2 SATURATION 97.7 % (95.0-99.0); ABG PARTIAL PRESSURE CO2 32.1 mmHg (35.0-45.0); ABG PARTIAL PRESSURE O2 94.4 mmHg (75.0-100.0); ABG STANDARD HCO3 26.6 MEQ/L (22.0-26.0); ABG TOTAL CO2 26.3 MEQ/L (23.0-31.0); ABG pH (ARTERIAL) 7.514 UNITS (7.350-7.450)
[2018-04-25] MEDS: IRBESARTAN 150 MG TAB PO (07:06)
[2018-04-25] MEDS: ALBUTEROL SULFATE 2.5 MG/0.5 ML INH NEB SOLN NEB ×4 (08:24→20:12)
[2018-04-25] MEDS: CHLORHEXIDINE ORAL RINSE 0.12%/15ML 120ML BOTTLE MT ×2 (09:00→21:09)
[2018-04-25] MEDS: DOCUSATE SODIUM 100 MG CAP PO ×2 (09:00→21:00)
[2018-04-25] MEDS: POTASSIUM CHLORIDE 10% LIQ 20 MEQ/15 ML UDC PO (09:00)
[2018-04-25] MEDS: METOPROLOL TART 50 MG TAB PO ×2 (09:01→21:00)
[2018-04-25] MEDS: NYSTATIN 100,000 UNITS/GM TOPICAL PWD 15 GM TOP (09:02)
[2018-04-25] MEDS: NS 1,000 ML IV ×2 (09:02→17:38)
[2018-04-25] MEDS: PANTOPRAZOLE 40MG TAB (PROTONIX) PO (09:03)
[2018-04-25] MEDS: ENOXAPARIN 40 MG/0.4 ML SYRINGE (J1650) SC (09:03)
[2018-04-25] MEDS: MYCOLOG CREAM 15 GM (NYSTATIN/TRIAMCINOLONE) TOP ×2 (09:03→21:08)
[2018-04-25] MEDS: levETIRAcetam 250MG TABLET (KEPPRA) PO ×2 (09:04→21:07)
[2018-04-25] MEDS: PERPHENAZINE 8 MG PO ×2 (09:04→21:13)
[2018-04-25] MEDS: PROPOFOL 1,000 MG in APPROPRIATE DILUENT 1 EA IV ×4 (09:28→23:19)
[2018-04-25 10:05] LABS: ABG O2 SATURATION 98.8 % (95.0-99.0); ABG PARTIAL PRESSURE CO2 31.3 mmHg (35.0-45.0); ABG PARTIAL PRESSURE O2 115.4 mmHg (75.0-100.0); ABG STANDARD HCO3 25.4 MEQ/L (22.0-26.0); ABG TOTAL CO2 24.9 MEQ/L (23.0-31.0); ABG pH (ARTERIAL) 7.502 UNITS (7.350-7.450)
[2018-04-25] MEDS: FLUTICASONE PROP 0.05% NASAL SPRAY 16 GM (FLONASE) NARES (11:15)
[2018-04-25 14:27] LABS: BEDSIDE GLUCOSE 112 MG/DL (83-110)
[2018-04-25] MEDS: MIDAZOLAM INJ 2 MG/2 ML VIAL (J2250) IV ×2 (20:49→23:42)
[2018-04-25] MEDS: ASPIRIN 81 MG ENTERIC TAB PO (21:00)
[2018-04-25] MEDS: SENNA 8.6 MG TAB (SENOKOT) PO (21:07)
[2018-04-25] MEDS: ATORVASTATIN 10 MG TAB PO (21:07)
[2018-04-25] MEDS: LIDOCAINE 5% (LIDODERM) PATCH TD (21:08)
[2018-04-26 00:02] LABS: BEDSIDE GLUCOSE 134 MG/DL (83-110)
[2018-04-26] MEDS: MIDAZOLAM INJ 2 MG/2 ML VIAL (J2250) IV ×2 (02:46→05:49)
[2018-04-26] MEDS: LEVOTHYROXINE 88MCG TABLET (0.088 MG) PO (05:00)
[2018-04-26] MEDS: AMPICILLIN SOD/SULBACTAM SOD 3 GM in D5W MINI-BAG PLUS 100 ML IV ×4 (05:00→23:58)
[2018-04-26] MEDS: NS 1,000 ML IV (05:01)
[2018-04-26 05:14] LABS: HEMATOCRIT 20.4 % (36.0-47.0); MEAN CORPUSCULAR HEMOGLOBIN 24.6 pg (27.0-33.0); MEAN CORPUSCULAR HGB CONC 31.4 g/dl (32.0-36.5); MEAN CORPUSCULAR VOLUME 78.5 fl (80.0-96.0); PLATELET COUNT, AUTOMATED 280 10^3/uL (150-450); RED CELL DISTRIBUTION WIDTH 19.9 % (11.5-14.5); WHITE BLOOD COUNT 11.9 10^3/uL (4.0-10.0)
[2018-04-26 05:21] LABS: HEMOGLOBIN 6.4 g/dl (12.0-15.5)
[2018-04-26 05:41] LABS: ABG BASE EXCESS 2.9 (-2.0-2.0); ABG HCO3 26.3 MEQ/L (22.0-26.0); ABG O2 SATURATION 96.3 % (95.0-99.0); ABG PARTIAL PRESSURE CO2 34.8 mmHg (35.0-45.0); ABG PARTIAL PRESSURE O2 80.9 mmHg (75.0-100.0); ABG STANDARD HCO3 27.1 MEQ/L (22.0-26.0); ABG TOTAL CO2 27.4 MEQ/L (23.0-31.0); ABG pH (ARTERIAL) 7.497 UNITS (7.350-7.450)
[2018-04-26 05:44] LABS: ANION GAP 10 MEQ/L (8-16); BLOOD UREA NITROGEN 10 MG/DL (7-18); CALCIUM LEVEL 7.1 MG/DL (8.8-10.2); CARBON DIOXIDE LEVEL 28 MEQ/L (21-32); CHLORIDE LEVEL 113 MEQ/L (98-107); CREATININE FOR GFR 0.63 MG/DL (0.55-1.30); GLOMERULAR FILTRATION RATE > 60.0 (>39); GLUCOSE, FASTING 128 MG/DL (70-100); POTASSIUM SERUM 3.2 MEQ/L (3.5-5.1); SODIUM LEVEL 151 MEQ/L (136-145)
[2018-04-26] MEDS: KCL 20MEQ IN 100ML SWI (KRUN) 20 MEQ in APPROPRIATE DILUENT 1 EA IV (06:27)
[2018-04-26] MEDS: IRBESARTAN 150 MG TAB PO (06:30)
[2018-04-26] MEDS: ALBUTEROL SULFATE 2.5 MG/0.5 ML INH NEB SOLN NEB ×4 (08:06→19:54)
[2018-04-26] MEDS: levETIRAcetam 250MG TABLET (KEPPRA) PO ×2 (08:18→21:17)
[2018-04-26] MEDS: POTASSIUM CHLORIDE 10% LIQ 20 MEQ/15 ML UDC PO (08:18)
[2018-04-26] MEDS: ENOXAPARIN 40 MG/0.4 ML SYRINGE (J1650) SC (08:18)
[2018-04-26] MEDS: PANTOPRAZOLE 40MG INJ (PROTONIX) (C9113) IV (08:19)
[2018-04-26] MEDS: DOCUSATE SODIUM 100 MG CAP PO ×2 (08:19→19:50)
[2018-04-26] MEDS: CHLORHEXIDINE ORAL RINSE 0.12%/15ML 120ML BOTTLE MT ×2 (08:19→21:16)
[2018-04-26] MEDS: PERPHENAZINE 8 MG PO ×2 (08:19→21:17)
[2018-04-26] MEDS: MYCOLOG CREAM 15 GM (NYSTATIN/TRIAMCINOLONE) TOP ×2 (08:19→21:18)
[2018-04-26] MEDS: FLUTICASONE PROP 0.05% NASAL SPRAY 16 GM (FLONASE) NARES (08:19)
[2018-04-26] MEDS: NYSTATIN 100,000 UNITS/GM TOPICAL PWD 15 GM TOP (08:20)
[2018-04-26] MEDS: MORPHINE 4 MG/ML 1ML VIAL/SYRINGE (J2270) IV (09:04)
[2018-04-26] MEDS: METOPROLOL TART 50 MG TAB PO ×2 (10:39→21:00)
[2018-04-26 11:41] LABS: IMMEDIATE SPIN CROSSMATCH 1 2
[2018-04-26] MEDS: PROPOFOL 1,000 MG in APPROPRIATE DILUENT 1 EA IV ×2 (14:06→20:25)
[2018-04-26 14:45] LABS: HEMATOCRIT 27.4 % (36.0-47.0)
[2018-04-26 14:49] LABS: HEMOGLOBIN 8.7 g/dl (12.0-15.5)
[2018-04-26 15:24] LABS: ANION GAP 6 MEQ/L (8-16); BLOOD UREA NITROGEN 10 MG/DL (7-18); CALCIUM LEVEL 7.3 MG/DL (8.8-10.2); CARBON DIOXIDE LEVEL 26 MEQ/L (21-32); CHLORIDE LEVEL 107 MEQ/L (98-107); CREATININE FOR GFR 0.52 MG/DL (0.55-1.30); FERRITIN 46 NG/ML (8-252); GLOMERULAR FILTRATION RATE > 60.0 (>39); GLUCOSE, FASTING 141 MG/DL (70-100); IRON (FE) 101 UG/DL (50-170); PERCENT SATURATION 53.7 % (13.2-45.0); POTASSIUM SERUM 3.7 MEQ/L (3.5-5.1); SODIUM LEVEL 139 MEQ/L (136-145); TOTAL IRON BINDING CAPACITY 188 UG/DL (250-450)
[2018-04-26] MEDS: ASPIRIN 81 MG ENTERIC TAB PO (19:51)
[2018-04-26 20:32] LABS: HEMOGLOBIN 8.8 g/dl (12.0-15.5)
[2018-04-26] MEDS: SENNA 8.6 MG TAB (SENOKOT) PO (21:16)
[2018-04-26] MEDS: ATORVASTATIN 10 MG TAB PO (21:17)
[2018-04-26] MEDS: traZODone 25MG PER 1/2 TABLET PO (21:17)
[2018-04-26] MEDS: LIDOCAINE 5% (LIDODERM) PATCH TD (21:18)
[2018-04-27] MEDS: PROPOFOL 1,000 MG in APPROPRIATE DILUENT 1 EA IV ×6 (00:25→20:17)
[2018-04-27] MEDS: AMPICILLIN SOD/SULBACTAM SOD 3 GM in D5W MINI-BAG PLUS 100 ML IV ×4 (04:14→23:58)
[2018-04-27 04:44] LABS: HEMATOCRIT 28.8 % (36.0-47.0); HEMOGLOBIN 9.2 g/dl (12.0-15.5); MEAN CORPUSCULAR HEMOGLOBIN 25.8 pg (27.0-33.0); MEAN CORPUSCULAR HGB CONC 31.9 g/dl (32.0-36.5); MEAN CORPUSCULAR VOLUME 80.7 fl (80.0-96.0); PLATELET COUNT, AUTOMATED 287 10^3/uL (150-450); RED BLOOD COUNT 3.57 10^6/uL (4.00-5.40); RED CELL DISTRIBUTION WIDTH 18.6 % (11.5-14.5); WHITE BLOOD COUNT 10.4 10^3/uL (4.0-10.0)
[2018-04-27 04:59] LABS: ANION GAP 5 MEQ/L (8-16); BLOOD UREA NITROGEN 10 MG/DL (7-18); CALCIUM LEVEL 7.9 MG/DL (8.8-10.2); CARBON DIOXIDE LEVEL 30 MEQ/L (21-32); CHLORIDE LEVEL 108 MEQ/L (98-107); CREATININE FOR GFR 0.52 MG/DL (0.55-1.30); GLOMERULAR FILTRATION RATE > 60.0 (>39); GLUCOSE, FASTING 112 MG/DL (70-100); POTASSIUM SERUM 3.2 MEQ/L (3.5-5.1); SODIUM LEVEL 143 MEQ/L (136-145)
[2018-04-27 05:43] LABS: ABG BASE EXCESS 3.1 (-2.0-2.0); ABG HCO3 26.4 MEQ/L (22.0-26.0); ABG O2 SATURATION 96.8 % (95.0-99.0); ABG PARTIAL PRESSURE CO2 35.3 mmHg (35.0-45.0); ABG PARTIAL PRESSURE O2 83.4 mmHg (75.0-100.0); ABG STANDARD HCO3 27.2 MEQ/L (22.0-26.0); ABG TOTAL CO2 27.4 MEQ/L (23.0-31.0); ABG pH (ARTERIAL) 7.491 UNITS (7.350-7.450)
[2018-04-27] MEDS: LEVOTHYROXINE 88MCG TABLET (0.088 MG) PO (06:34)
[2018-04-27] MEDS: IRBESARTAN 150 MG TAB PO (06:34)
[2018-04-27] MEDS: NS 1,000 ML IV (07:00)
[2018-04-27 08:06] LABS: TRANSFERRIN 151 mg/dL (200-370)
[2018-04-27] MEDS: ALBUTEROL SULFATE 2.5 MG/0.5 ML INH NEB SOLN NEB ×4 (08:17→19:58)
[2018-04-27] MEDS ORDERED: ACETAMINOPHEN 325 MG/10.15 ML UDC GT (09:00)
[2018-04-27] MEDS: ENOXAPARIN 40 MG/0.4 ML SYRINGE (J1650) SC ×2 (09:00→10:58)
[2018-04-27] MEDS: DOCUSATE SOD LIQ 100MG/10ML UDC GT ×2 (09:00→20:58)
[2018-04-27] MEDS: PANTOPRAZOLE 40MG INJ (PROTONIX) (C9113) IV (09:08)
[2018-04-27] MEDS: CHLORHEXIDINE ORAL RINSE 0.12%/15ML 120ML BOTTLE MT ×2 (09:08→20:43)
[2018-04-27] MEDS: POTASSIUM CHLORIDE 10% LIQ 20 MEQ/15 ML UDC PO (09:09)
[2018-04-27] MEDS: KCL 20MEQ IN 100ML SWI (KRUN) 20 MEQ in APPROPRIATE DILUENT 1 EA IV ×2 (09:09→10:14)
[2018-04-27] MEDS: NYSTATIN 100,000 UNITS/GM TOPICAL PWD 15 GM TOP (09:09)
[2018-04-27] MEDS: levETIRAcetam 250MG TABLET (KEPPRA) PO ×2 (09:10→20:39)
[2018-04-27] MEDS: PERPHENAZINE 8 MG PO ×2 (09:12→20:41)
[2018-04-27] MEDS: MYCOLOG CREAM 15 GM (NYSTATIN/TRIAMCINOLONE) TOP ×2 (09:13→20:42)
[2018-04-27] MEDS: FLUTICASONE PROP 0.05% NASAL SPRAY 16 GM (FLONASE) NARES (09:13)
[2018-04-27] MEDS: ACETAMINOPHEN 325 MG/10.15 ML UDC GT (09:51)
[2018-04-27 10:15] LABS: KETONE, URINE AUTO RFX NEGATIVE (NEGATIVE); LEUKOCYTE ESTERASE UR AUTO RFX NEGATIVE (NEGATIVE); MUCUS, URINE RFX SMALL (NEGATIVE); NITRITE, URINE AUTO RFX NEGATIVE (NEGATIVE); RBC, URINE AUTO RFX 0 /HPF (0-3); SPECIFIC GRAVITY UR AUTO RFX 1.016 (1.002-1.035); SQUAM EPITHELIAL CELL UR AURFX 0 /HPF (0-6); WBC, URINE AUTO RFX 0 /HPF (0-3)
[2018-04-27] MEDS: METOPROLOL TART 50 MG TAB PO ×2 (10:58→20:42)
[2018-04-27 13:13] LABS: SLIDE REVIEW Report; SOURCE PERIPHERAL SMEAR
[2018-04-27] MEDS: LIDOCAINE 5% (LIDODERM) PATCH TD (20:41)
[2018-04-27] MEDS: ATORVASTATIN 10 MG TAB PO (20:42)
[2018-04-27] MEDS: SENNA 8.6 MG TAB (SENOKOT) PO (20:42)
[2018-04-27] MEDS: ASPIRIN 81 MG ENTERIC TAB PO (20:58)
[2018-04-28] MEDS: PROPOFOL 1,000 MG in APPROPRIATE DILUENT 1 EA IV ×5 (01:54→20:42)
[2018-04-28] MEDS: MIDAZOLAM INJ 2 MG/2 ML VIAL (J2250) IV (03:42)
[2018-04-28 04:23] LABS: HEMATOCRIT 27.5 % (36.0-47.0); HEMOGLOBIN 8.8 g/dl (12.0-15.5); MEAN CORPUSCULAR HEMOGLOBIN 26.1 pg (27.0-33.0); MEAN CORPUSCULAR VOLUME 81.6 fl (80.0-96.0); PLATELET COUNT, AUTOMATED 322 10^3/uL (150-450); RED BLOOD COUNT 3.37 10^6/uL (4.00-5.40); RED CELL DISTRIBUTION WIDTH 19.2 % (11.5-14.5); WHITE BLOOD COUNT 8.6 10^3/uL (4.0-10.0)
[2018-04-28] MEDS: AMPICILLIN SOD/SULBACTAM SOD 3 GM in D5W MINI-BAG PLUS 100 ML IV ×4 (04:23→23:07)
[2018-04-28 04:51] LABS: ANION GAP 6 MEQ/L (8-16); BLOOD UREA NITROGEN 8 MG/DL (7-18); CALCIUM LEVEL 7.8 MG/DL (8.8-10.2); CARBON DIOXIDE LEVEL 29 MEQ/L (21-32); CHLORIDE LEVEL 105 MEQ/L (98-107); CREATININE FOR GFR 0.49 MG/DL (0.55-1.30); GLOMERULAR FILTRATION RATE > 60.0 (>39); GLUCOSE, FASTING 124 MG/DL (70-100); POTASSIUM SERUM 3.3 MEQ/L (3.5-5.1); SODIUM LEVEL 140 MEQ/L (136-145)
[2018-04-28 05:43] LABS: ABG BASE EXCESS 4.4 (-2.0-2.0); ABG HCO3 28.1 MEQ/L (22.0-26.0); ABG O2 SATURATION 96.7 % (95.0-99.0); ABG PARTIAL PRESSURE CO2 38.5 mmHg (35.0-45.0); ABG PARTIAL PRESSURE O2 87.3 mmHg (75.0-100.0); ABG STANDARD HCO3 28.4 MEQ/L (22.0-26.0); ABG TOTAL CO2 29.3 MEQ/L (23.0-31.0); ABG pH (ARTERIAL) 7.481 UNITS (7.350-7.450)
[2018-04-28] MEDS: NS 1,000 ML IV (06:22)
[2018-04-28] MEDS: LEVOTHYROXINE 88MCG TABLET (0.088 MG) PO (06:23)
[2018-04-28] MEDS: IRBESARTAN 150 MG TAB PO (06:24)
[2018-04-28] MEDS: ALBUTEROL SULFATE 2.5 MG/0.5 ML INH NEB SOLN NEB ×4 (08:16→19:14)
[2018-04-28] MEDS: CHLORHEXIDINE ORAL RINSE 0.12%/15ML 120ML BOTTLE MT ×2 (08:24→21:47)
[2018-04-28] MEDS: PERPHENAZINE 8 MG PO ×2 (08:24→21:00)
[2018-04-28] MEDS: FLUTICASONE PROP 0.05% NASAL SPRAY 16 GM (FLONASE) NARES (08:24)
[2018-04-28] MEDS: MYCOLOG CREAM 15 GM (NYSTATIN/TRIAMCINOLONE) TOP ×2 (08:25→21:48)
[2018-04-28] MEDS: NYSTATIN 100,000 UNITS/GM TOPICAL PWD 15 GM TOP (08:25)
[2018-04-28] MEDS: ENOXAPARIN 40 MG/0.4 ML SYRINGE (J1650) SC (08:29)
[2018-04-28] MEDS: levETIRAcetam 250MG TABLET (KEPPRA) PO (08:30)
[2018-04-28] MEDS: POTASSIUM CHLORIDE 10% LIQ 20 MEQ/15 ML UDC PO (08:30)
[2018-04-28] MEDS: PANTOPRAZOLE 40MG INJ (PROTONIX) (C9113) IV (08:30)
[2018-04-28] MEDS: DOCUSATE SOD LIQ 100MG/10ML UDC GT ×2 (08:33→21:00)
[2018-04-28] MEDS: METOPROLOL TART 50 MG TAB PO ×2 (10:22→21:00)
[2018-04-28 12:06] LABS: MAGNESIUM LEVEL 2.2 MG/DL (1.8-2.4)
[2018-04-28] MEDS: KCL 20MEQ IN 100ML SWI (KRUN) 20 MEQ in APPROPRIATE DILUENT 1 EA IV (12:23)
[2018-04-28] MEDS ORDERED: PROPOFOL 200 MG/20 ML VIAL As Ordered (14:10)
[2018-04-28] MEDS ORDERED: LIDOCAINE 2% INJ 100 MG/5 ML SDV (FOR ANES.) As Ordered (14:10)
[2018-04-28] MEDS: CIPROFLOXACIN 400 MG in APPROPRIATE DILUENT 1 EA IV (15:36)
[2018-04-28] MEDS: ASPIRIN 81 MG ENTERIC TAB PO (20:42)
[2018-04-28] MEDS: ATORVASTATIN 10 MG TAB PO (21:00)
[2018-04-28] MEDS: SENNA 8.6 MG TAB (SENOKOT) PO (21:00)
[2018-04-28] MEDS: LIDOCAINE 5% (LIDODERM) PATCH TD (21:45)
[2018-04-28] MEDS: levETIRAcetam INJection 500 MG in D5W MINI-BAG PLUS 100 ML IV (21:46)
[2018-04-29] MEDS: PROPOFOL 1,000 MG in APPROPRIATE DILUENT 1 EA IV ×2 (01:03→06:15)
[2018-04-29] MEDS: AMPICILLIN SOD/SULBACTAM SOD 3 GM in D5W MINI-BAG PLUS 100 ML IV ×4 (04:24→22:49)
[2018-04-29] MEDS: LEVOTHYROXINE 88MCG TABLET (0.088 MG) PO (04:30)
[2018-04-29] MEDS: IRBESARTAN 150 MG TAB PO (04:30)
[2018-04-29 05:20] LABS: HEMOGLOBIN 9.5 g/dl (12.0-15.5); MEAN CORPUSCULAR HEMOGLOBIN 25.8 pg (27.0-33.0); MEAN CORPUSCULAR HGB CONC 32.8 g/dl (32.0-36.5); MEAN CORPUSCULAR VOLUME 78.8 fl (80.0-96.0); PLATELET COUNT, AUTOMATED 361 10^3/uL (150-450); RED BLOOD COUNT 3.68 10^6/uL (4.00-5.40); RED CELL DISTRIBUTION WIDTH 19.5 % (11.5-14.5); WHITE BLOOD COUNT 8.6 10^3/uL (4.0-10.0)
[2018-04-29 05:24] LABS: ABG BASE EXCESS 4.5 (-2.0-2.0); ABG HCO3 23.6 MEQ/L (22.0-26.0); ABG O2 SATURATION 97.4 % (95.0-99.0); ABG PARTIAL PRESSURE CO2 20.3 mmHg (35.0-45.0); ABG PARTIAL PRESSURE O2 78.7 mmHg (75.0-100.0); ABG STANDARD HCO3 28.5 MEQ/L (22.0-26.0); ABG TOTAL CO2 24.3 MEQ/L (23.0-31.0)
[2018-04-29 05:25] LABS: ABG pH (ARTERIAL) 7.684 UNITS (7.350-7.450)
[2018-04-29 05:48] LABS: ANION GAP 12 MEQ/L (8-16); BLOOD UREA NITROGEN 8 MG/DL (7-18); CALCIUM LEVEL 7.8 MG/DL (8.8-10.2); CARBON DIOXIDE LEVEL 25 MEQ/L (21-32); CHLORIDE LEVEL 103 MEQ/L (98-107); CREATININE FOR GFR 0.59 MG/DL (0.55-1.30); GLOMERULAR FILTRATION RATE > 60.0 (>39); GLUCOSE, FASTING 114 MG/DL (70-100); POTASSIUM SERUM 3.4 MEQ/L (3.5-5.1); SODIUM LEVEL 140 MEQ/L (136-145)
[2018-04-29] MEDS: ALBUTEROL SULFATE 2.5 MG/0.5 ML INH NEB SOLN NEB ×4 (07:49→20:49)
[2018-04-29] MEDS: KCL 20MEQ IN 100ML SWI (KRUN) 20 MEQ in APPROPRIATE DILUENT 1 EA IV (08:47)
[2018-04-29] MEDS: METOPROLOL 5 MG/5 ML VIAL IV ×3 (08:47→18:14)
[2018-04-29] MEDS: ENOXAPARIN 40 MG/0.4 ML SYRINGE (J1650) SC (08:48)
[2018-04-29] MEDS: PANTOPRAZOLE 40MG INJ (PROTONIX) (C9113) IV ×2 (08:49→20:32)
[2018-04-29] MEDS: levETIRAcetam INJection 500 MG in D5W MINI-BAG PLUS 100 ML IV ×2 (08:49→20:30)
[2018-04-29] MEDS: MYCOLOG CREAM 15 GM (NYSTATIN/TRIAMCINOLONE) TOP ×2 (08:51→20:34)
[2018-04-29] MEDS: NYSTATIN 100,000 UNITS/GM TOPICAL PWD 15 GM TOP (08:51)
[2018-04-29] MEDS: POTASSIUM CHLORIDE 10% LIQ 20 MEQ/15 ML UDC PO (09:00)
[2018-04-29] MEDS: DOCUSATE SOD LIQ 100MG/10ML UDC GT ×2 (09:00→20:32)
[2018-04-29] MEDS: PERPHENAZINE 8 MG PO ×2 (09:00→20:34)
[2018-04-29] MEDS: CHLORHEXIDINE ORAL RINSE 0.12%/15ML 120ML BOTTLE MT (09:19)
[2018-04-29] MEDS: NS 1,000 ML IV (12:45)
[2018-04-29] MEDS: FLUTICASONE PROP 0.05% NASAL SPRAY 16 GM (FLONASE) NARES (12:46)
[2018-04-29] MEDS: MORPHINE 4 MG/ML 1ML VIAL/SYRINGE (J2270) IV (15:44)
[2018-04-29] MEDS: ACETAMINOPHEN 325 MG/10.15 ML UDC GT (20:33)
[2018-04-29] MEDS: LIDOCAINE 5% (LIDODERM) PATCH TD (20:33)
[2018-04-29] MEDS: SENNA 8.6 MG TAB (SENOKOT) PO (20:35)
[2018-04-29] MEDS: ASPIRIN 81 MG ENTERIC TAB PO (20:35)
[2018-04-29] MEDS: ATORVASTATIN 10 MG TAB PO (20:35)
[2018-04-29] MEDS: traZODone 25MG PER 1/2 TABLET PO (22:40)
[2018-04-30] MEDS: METOPROLOL 5 MG/5 ML VIAL IV ×3 (00:17→11:56)
[2018-04-30] MEDS: AMPICILLIN SOD/SULBACTAM SOD 3 GM in D5W MINI-BAG PLUS 100 ML IV (04:35)
[2018-04-30 04:40] LABS: HEMATOCRIT 25.5 % (36.0-47.0); HEMOGLOBIN 7.9 g/dl (12.0-15.5); MEAN CORPUSCULAR HEMOGLOBIN 25.7 pg (27.0-33.0); MEAN CORPUSCULAR VOLUME 83.1 fl (80.0-96.0); PLATELET COUNT, AUTOMATED 314 10^3/uL (150-450); RED BLOOD COUNT 3.07 10^6/uL (4.00-5.40); RED CELL DISTRIBUTION WIDTH 19.2 % (11.5-14.5); WHITE BLOOD COUNT 6.6 10^3/uL (4.0-10.0)
[2018-04-30 05:09] LABS: ANION GAP 7 MEQ/L (8-16); BLOOD UREA NITROGEN 11 MG/DL (7-18); CALCIUM LEVEL 7.7 MG/DL (8.8-10.2); CARBON DIOXIDE LEVEL 30 MEQ/L (21-32); CHLORIDE LEVEL 104 MEQ/L (98-107); CREATININE FOR GFR 0.46 MG/DL (0.55-1.30); GLOMERULAR FILTRATION RATE > 60.0 (>39); GLUCOSE, FASTING 136 MG/DL (70-100); POTASSIUM SERUM 2.8 MEQ/L (3.5-5.1); SODIUM LEVEL 141 MEQ/L (136-145)
[2018-04-30] MEDS: MORPHINE 4 MG/ML 1ML VIAL/SYRINGE (J2270) IV (05:51)
[2018-04-30] MEDS: LEVOTHYROXINE 88MCG TABLET (0.088 MG) PO (05:52)
[2018-04-30] MEDS: POTASSIUM CHLORIDE 10% LIQ 20 MEQ/15 ML UDC PEG ×2 (05:52→17:30)
[2018-04-30 06:12] LABS: ABG HCO3 25.8 MEQ/L (22.0-26.0); ABG O2 SATURATION 90.8 % (95.0-99.0); ABG PARTIAL PRESSURE CO2 32.9 mmHg (35.0-45.0); ABG PARTIAL PRESSURE O2 56.3 mmHg (75.0-100.0); ABG TOTAL CO2 26.8 MEQ/L (23.0-31.0); ABG pH (ARTERIAL) 7.512 UNITS (7.350-7.450)
[2018-04-30] MEDS: IRBESARTAN 150 MG TAB PO (06:39)
[2018-04-30 08:22] LABS: MAGNESIUM LEVEL 2.4 MG/DL (1.8-2.4)
[2018-04-30] MEDS: ALBUTEROL SULFATE 2.5 MG/0.5 ML INH NEB SOLN NEB ×4 (08:22→19:57)
[2018-04-30] MEDS: PERPHENAZINE 8 MG PO ×2 (09:22→21:06)
[2018-04-30] MEDS: POTASSIUM CHLORIDE 10% LIQ 20 MEQ/15 ML UDC PO (09:23)
[2018-04-30] MEDS: ENOXAPARIN 40 MG/0.4 ML SYRINGE (J1650) SC (09:23)
[2018-04-30] MEDS: levETIRAcetam INJection 500 MG in D5W MINI-BAG PLUS 100 ML IV (09:23)
[2018-04-30] MEDS: PANTOPRAZOLE 40MG INJ (PROTONIX) (C9113) IV (09:23)
[2018-04-30] MEDS: FLUTICASONE PROP 0.05% NASAL SPRAY 16 GM (FLONASE) NARES (09:24)
[2018-04-30] MEDS: MYCOLOG CREAM 15 GM (NYSTATIN/TRIAMCINOLONE) TOP ×2 (09:24→21:04)
[2018-04-30] MEDS: NYSTATIN 100,000 UNITS/GM TOPICAL PWD 15 GM TOP (09:25)
[2018-04-30] MEDS: ACETAMINOPHEN 325 MG/10.15 ML UDC GT ×3 (09:35→21:06)
[2018-04-30 12:01] LABS: HEMATOCRIT 29.3 % (36.0-47.0); HEMOGLOBIN 9.3 g/dl (12.0-15.5)
[2018-04-30 13:11] LABS: ANION GAP 7 MEQ/L (8-16); BLOOD UREA NITROGEN 12 MG/DL (7-18); CALCIUM LEVEL 8.3 MG/DL (8.8-10.2); CARBON DIOXIDE LEVEL 27 MEQ/L (21-32); CHLORIDE LEVEL 102 MEQ/L (98-107); CREATININE FOR GFR 0.54 MG/DL (0.55-1.30); GLOMERULAR FILTRATION RATE > 60.0 (>39); GLUCOSE, FASTING 180 MG/DL (70-100); POTASSIUM SERUM 3.5 MEQ/L (3.5-5.1); SODIUM LEVEL 136 MEQ/L (136-145)
[2018-04-30] MEDS: BACTRIM 160MG/800MG DS TAB PO ×2 (13:25→21:05)
[2018-04-30] MEDS: MORPHINE SULFATE ORAL SOLN 10 MG/5 ML UD PEG ×2 (15:15→23:58)
[2018-04-30] MEDS ORDERED: POTASSIUM CHLORIDE 10 MEQ SR TABLET PO (16:45)
[2018-04-30] MEDS: METOPROLOL TART 12.5 MG PER 1/2 TAB PEG (17:31)
[2018-04-30] MEDS: ASPIRIN 81 MG CHEW TABLET PEG (21:04)
[2018-04-30] MEDS: levETIRAcetam ORAL SOLUTION 500 MG/5 ML UDC PEG (21:05)
[2018-04-30] MEDS: ATORVASTATIN 10 MG TAB PO (21:05)
[2018-04-30] MEDS: LANSOPRAZOLE SUSPENSION 30 MG/10 ML ORAL SYRINGE (FIRST-LANSOPRAZOLE) PEG (21:06)
[2018-04-30] MEDS: LIDOCAINE 5% (LIDODERM) PATCH TD (21:06)
[2018-05-01] MEDS: traZODone 25MG PER 1/2 TABLET PO ×2 (01:00→21:08)
[2018-05-01] MEDS: ACETAMINOPHEN 325 MG/10.15 ML UDC GT ×2 (04:18→21:05)
[2018-05-01] MEDS: LEVOTHYROXINE 88MCG TABLET (0.088 MG) PO (05:37)
[2018-05-01] MEDS: IRBESARTAN 150 MG TAB PO (06:50)
[2018-05-01] MEDS: ALBUTEROL SULFATE 2.5 MG/0.5 ML INH NEB SOLN NEB (07:36)
[2018-05-01 08:04] LABS: HEMATOCRIT 31.8 % (36.0-47.0); HEMOGLOBIN 10.1 g/dl (12.0-15.5); MEAN CORPUSCULAR HEMOGLOBIN 25.6 pg (27.0-33.0); MEAN CORPUSCULAR HGB CONC 31.8 g/dl (32.0-36.5); MEAN CORPUSCULAR VOLUME 80.5 fl (80.0-96.0); PLATELET COUNT, AUTOMATED 463 10^3/uL (150-450); RED BLOOD COUNT 3.95 10^6/uL (4.00-5.40); RED CELL DISTRIBUTION WIDTH 19.7 % (11.5-14.5); WHITE BLOOD COUNT 7.5 10^3/uL (4.0-10.0)
[2018-05-01 08:21] LABS: ANION GAP 6 MEQ/L (8-16); BLOOD UREA NITROGEN 11 MG/DL (7-18); CALCIUM LEVEL 8.2 MG/DL (8.8-10.2); CARBON DIOXIDE LEVEL 28 MEQ/L (21-32); CHLORIDE LEVEL 101 MEQ/L (98-107); CREATININE FOR GFR 0.46 MG/DL (0.55-1.30); GLOMERULAR FILTRATION RATE > 60.0 (>39); GLUCOSE, FASTING 138 MG/DL (70-100); POTASSIUM SERUM 3.8 MEQ/L (3.5-5.1); SODIUM LEVEL 135 MEQ/L (136-145)
[2018-05-01] MEDS: POTASSIUM CHLORIDE 10% LIQ 20 MEQ/15 ML UDC PO (10:00)
[2018-05-01] MEDS: levETIRAcetam ORAL SOLUTION 500 MG/5 ML UDC PEG ×2 (10:00→21:05)
[2018-05-01] MEDS: METOPROLOL TART 50 MG TAB PO (10:01)
[2018-05-01] MEDS: BACTRIM 160MG/800MG DS TAB PO ×2 (10:01→21:06)
[2018-05-01] MEDS: ENOXAPARIN 40 MG/0.4 ML SYRINGE (J1650) SC (10:01)
[2018-05-01] MEDS: LANSOPRAZOLE SUSPENSION 30 MG/10 ML ORAL SYRINGE (FIRST-LANSOPRAZOLE) PEG ×2 (10:01→21:06)
[2018-05-01] MEDS: FLUTICASONE PROP 0.05% NASAL SPRAY 16 GM (FLONASE) NARES (10:02)
[2018-05-01] MEDS: PERPHENAZINE 8 MG PO ×2 (10:02→21:07)
[2018-05-01] MEDS: MYCOLOG CREAM 15 GM (NYSTATIN/TRIAMCINOLONE) TOP ×2 (10:03→21:07)
[2018-05-01] MEDS: NYSTATIN 100,000 UNITS/GM TOPICAL PWD 15 GM TOP (10:03)
[2018-05-01] MEDS: MORPHINE SULFATE ORAL SOLN 10 MG/5 ML UD PEG (14:21)
[2018-05-01] MEDS: ATORVASTATIN 10 MG TAB PO (21:06)
[2018-05-01] MEDS: ASPIRIN 81 MG CHEW TABLET PEG (21:06)
[2018-05-01] MEDS: LIDOCAINE 5% (LIDODERM) PATCH TD (21:08)
[2018-05-02] MEDS: MORPHINE SULFATE ORAL SOLN 10 MG/5 ML UD PEG ×3 (00:16→20:46)
[2018-05-02] MEDS: LEVOTHYROXINE 88MCG TABLET (0.088 MG) PO (05:38)
[2018-05-02] MEDS: IRBESARTAN 150 MG TAB PO (06:39)
[2018-05-02 06:46] LABS: HEMATOCRIT 32.5 % (36.0-47.0); HEMOGLOBIN 10.1 g/dl (12.0-15.5); MEAN CORPUSCULAR HEMOGLOBIN 25.8 pg (27.0-33.0); MEAN CORPUSCULAR HGB CONC 31.1 g/dl (32.0-36.5); MEAN CORPUSCULAR VOLUME 82.9 fl (80.0-96.0); PLATELET COUNT, AUTOMATED 532 10^3/uL (150-450); RED BLOOD COUNT 3.92 10^6/uL (4.00-5.40); RED CELL DISTRIBUTION WIDTH 19.9 % (11.5-14.5); WHITE BLOOD COUNT 7.2 10^3/uL (4.0-10.0)
[2018-05-02 07:11] LABS: ANION GAP 9 MEQ/L (8-16); BLOOD UREA NITROGEN 15 MG/DL (7-18); CALCIUM LEVEL 8.4 MG/DL (8.8-10.2); CARBON DIOXIDE LEVEL 25 MEQ/L (21-32); CHLORIDE LEVEL 101 MEQ/L (98-107); CREATININE FOR GFR 0.67 MG/DL (0.55-1.30); GLOMERULAR FILTRATION RATE > 60.0 (>39); GLUCOSE, FASTING 182 MG/DL (70-100); POTASSIUM SERUM 3.6 MEQ/L (3.5-5.1); SODIUM LEVEL 135 MEQ/L (136-145)
[2018-05-02] MEDS ORDERED: ENOXAPARIN 40 MG/0.4 ML SYRINGE (J1650) SC (09:00)
[2018-05-02] MEDS: levETIRAcetam ORAL SOLUTION 500 MG/5 ML UDC PEG ×2 (10:23→20:46)
[2018-05-02] MEDS: PERPHENAZINE 8 MG PO ×2 (10:24→20:48)
[2018-05-02] MEDS: POTASSIUM CHLORIDE 10% LIQ 20 MEQ/15 ML UDC PO (10:24)
[2018-05-02] MEDS: BACTRIM 160MG/800MG DS TAB PO ×2 (10:25→20:47)
[2018-05-02] MEDS: LANSOPRAZOLE SUSPENSION 30 MG/10 ML ORAL SYRINGE (FIRST-LANSOPRAZOLE) PEG ×2 (10:25→20:46)
[2018-05-02] MEDS: METOPROLOL TART 50 MG TAB PO ×2 (10:25→20:47)
[2018-05-02] MEDS: ENOXAPARIN 40 MG/0.4 ML SYRINGE (J1650) SC (10:26)
[2018-05-02] MEDS: FLUTICASONE PROP 0.05% NASAL SPRAY 16 GM (FLONASE) NARES (10:26)
[2018-05-02] MEDS: MYCOLOG CREAM 15 GM (NYSTATIN/TRIAMCINOLONE) TOP ×2 (10:27→20:48)
[2018-05-02] MEDS: NYSTATIN 100,000 UNITS/GM TOPICAL PWD 15 GM TOP (10:27)
[2018-05-02] MEDS: ALBUTEROL SULFATE 2.5 MG/0.5 ML INH NEB SOLN NEB (20:24)
[2018-05-02] MEDS: ASPIRIN 81 MG CHEW TABLET PEG (20:46)
[2018-05-02] MEDS: traZODone 25MG PER 1/2 TABLET PO (20:46)
[2018-05-02] MEDS: ATORVASTATIN 10 MG TAB PO (20:47)
[2018-05-02] MEDS: LIDOCAINE 5% (LIDODERM) PATCH TD (20:48)
[2018-05-03] MEDS: ACETAMINOPHEN 325 MG/10.15 ML UDC GT (04:15)
[2018-05-03] MEDS: LEVOTHYROXINE 88MCG TABLET (0.088 MG) PO (05:27)
[2018-05-03] MEDS: IRBESARTAN 150 MG TAB PO (06:38)
[2018-05-03 07:17] LABS: HEMATOCRIT 31.5 % (36.0-47.0); MEAN CORPUSCULAR HGB CONC 31.7 g/dl (32.0-36.5); MEAN CORPUSCULAR VOLUME 81.8 fl (80.0-96.0); PLATELET COUNT, AUTOMATED 555 10^3/uL (150-450); RED BLOOD COUNT 3.85 10^6/uL (4.00-5.40)
[2018-05-03 07:31] LABS: ANION GAP 8 MEQ/L (8-16); BLOOD UREA NITROGEN 19 MG/DL (7-18); CALCIUM LEVEL 8.3 MG/DL (8.8-10.2); CARBON DIOXIDE LEVEL 25 MEQ/L (21-32); CHLORIDE LEVEL 100 MEQ/L (98-107); CREATININE FOR GFR 0.72 MG/DL (0.55-1.30); GLOMERULAR FILTRATION RATE > 60.0 (>39); GLUCOSE, FASTING 180 MG/DL (70-100); POTASSIUM SERUM 3.7 MEQ/L (3.5-5.1); SODIUM LEVEL 133 MEQ/L (136-145)
[2018-05-03] MEDS: BACTRIM 160MG/800MG DS TAB PO (08:37)
[2018-05-03] MEDS: levETIRAcetam ORAL SOLUTION 500 MG/5 ML UDC PEG (08:37)
[2018-05-03] MEDS: MORPHINE SULFATE ORAL SOLN 10 MG/5 ML UD PEG (08:37)
[2018-05-03] MEDS: PERPHENAZINE 8 MG PO (08:38)
[2018-05-03] MEDS: POTASSIUM CHLORIDE 10% LIQ 20 MEQ/15 ML UDC PO (08:38)
[2018-05-03] MEDS: METOPROLOL TART 50 MG TAB PO (08:39)
[2018-05-03] MEDS: FLUTICASONE PROP 0.05% NASAL SPRAY 16 GM (FLONASE) NARES (08:40)
[2018-05-03] MEDS: ENOXAPARIN 40 MG/0.4 ML SYRINGE (J1650) SC (08:40)
[2018-05-03] MEDS: MYCOLOG CREAM 15 GM (NYSTATIN/TRIAMCINOLONE) TOP (08:41)
[2018-05-03] MEDS: NYSTATIN 100,000 UNITS/GM TOPICAL PWD 15 GM TOP (08:41)
[2018-05-03] MEDS: LANSOPRAZOLE SUSPENSION 30 MG/10 ML ORAL SYRINGE (FIRST-LANSOPRAZOLE) PEG (13:28)
== END 2018-05-03 15:05 | DRG 207 ==
LOC: M PCU 04-26 09:04 → M MS4PR 05-01 00:47 → M ICU 14:34 → M MS4PR 04-30 17:47
PROC: 02HV33Z Insertion of Infusion Device into Superior Vena Cava, Percutaneous Approach (ICD-10-PCS; principal; 2018-04-24)
PROC: 0B948ZZ Drainage of Right Upper Lobe Bronchus, Via Natural or Artificial Opening Endoscopic (ICD-10-PCS; 2018-04-24)
PROC: 5A1955Z Respiratory Ventilation, Greater than 96 Consecutive Hours (ICD-10-PCS; 2018-04-24)
PROC: 0BH17EZ Insertion of Endotracheal Airway into Trachea, Via Natural or Artificial Opening (ICD-10-PCS; 2018-04-24)
PROC: 30233N1 Transfusion of Nonautologous Red Blood Cells into Peripheral Vein, Percutaneous Approach (ICD-10-PCS; 2018-04-26)
PROC: 0DH68UZ Insertion of Feeding Device into Stomach, Via Natural or Artificial Opening Endoscopic (ICD-10-PCS; 2018-04-28)
PROC: 0D738DZ Dilation of Lower Esophagus with Intraluminal Device, Via Natural or Artificial Opening Endoscopic (ICD-10-PCS; 2018-04-28)
DX: J69.0 Pneumonitis due to inhalation of food and vomit (principal); J96.01 Acute respiratory failure with hypoxia; E87.3 Alkalosis; J98.11 Atelectasis; F31.9 Bipolar disorder, unspecified; I10 Essential (primary) hypertension; E78.5 Hyperlipidemia, unspecified; E03.9 Hypothyroidism, unspecified; K21.9 Gastro-esophageal reflux disease without esophagitis; K22.5 Diverticulum of esophagus, acquired; E87.6 Hypokalemia; D50.0 Iron deficiency anemia secondary to blood loss (chronic); Z79.82 Long term (current) use of aspirin; Z79.899 Other long term (current) drug therapy; K22.2 Esophageal obstruction; K29.70 Gastritis, unspecified, without bleeding

== ENCOUNTER 2018-05-03 15:05 | Inpatient (IN) | payer MEDICARE, OTHER ==
[2018-05-03] MEDS ORDERED: ALBUTEROL SULFATE 2.5 MG/0.5 ML INH NEB SOLN NEB (17:30)
[2018-05-03] MEDS ORDERED: traZODone 25MG PER 1/2 TABLET PO (17:30)
[2018-05-03] MEDS ORDERED: MORPHINE 10 MG/ML 1ML VIAL (J2270) IV (17:45)
[2018-05-03] MEDS ORDERED: PILL CRUSHER/CUTTER 1 EACH XX (17:45)
[2018-05-03] MEDS ORDERED: PERPHENAZINE 2 MG TAB PO (21:00)
[2018-05-03] MEDS ORDERED: METOPROLOL TART 50 MG TAB PO (21:00)
[2018-05-03] MEDS ORDERED: ATORVASTATIN 10 MG TAB PO (21:00)
[2018-05-03] MEDS ORDERED: BACTRIM 160MG/800MG DS TAB PO (21:00)
[2018-05-03] MEDS: LANSOPRAZOLE SUSPENSION 30 MG/10 ML ORAL SYRINGE (FIRST-LANSOPRAZOLE) PEG (21:14)
[2018-05-03] MEDS: CHLORHEXIDINE ORAL RINSE 0.12%/15ML 120ML BOTTLE SSP (21:14)
[2018-05-03] MEDS: PERPHENAZINE 2 MG TAB PEG (21:15)
[2018-05-03] MEDS: METOPROLOL TART 50 MG TAB PEG (21:16)
[2018-05-03] MEDS: BACTRIM 160MG/800MG DS TAB PEG (21:16)
[2018-05-03] MEDS: ATORVASTATIN 10 MG TAB PEG (21:16)
[2018-05-03] MEDS: levETIRAcetam ORAL SOLUTION 500 MG/5 ML UDC GT (21:17)
[2018-05-04] MEDS: ACETAMINOPHEN TAB 650MG DOSE (2X325MG) PO ×3 (00:13→09:42)
[2018-05-04] MEDS ORDERED: LEVOTHYROXINE 88MCG TABLET (0.088 MG) PO (06:00)
[2018-05-04] MEDS: LEVOTHYROXINE 88MCG TABLET (0.088 MG) PEG (06:13)
[2018-05-04 07:01] LABS: BASO % 0.4 % (0.0-1.0); EOS # 0.2 10^3/uL (0.0-0.50); EOS % 1.7 % (0.0-3.0); HEMATOCRIT 32.2 % (36.0-47.0); HEMOGLOBIN 10.2 g/dl (12.0-15.5); IMMATURE GRANULOCYTE % 0.9 % (0-3.0); LYMPH # 1.6 10^3/uL (1.5-4.5); MEAN CORPUSCULAR HEMOGLOBIN 25.7 pg (27.0-33.0); MEAN CORPUSCULAR HGB CONC 31.7 g/dl (32.0-36.5); MEAN CORPUSCULAR VOLUME 81.1 fl (80.0-96.0); MONO # 0.7 10^3/uL (0.0-0.8); MONO % 8.2 % (0.0-5.0); NEUTROPHILS # 6.3 10^3/uL (1.8-7.7); NEUTROPHILS % 70.8 % (36.0-66.0); PLATELET COUNT, AUTOMATED 583 10^3/uL (150-450); RED BLOOD COUNT 3.97 10^6/uL (4.00-5.40); WHITE BLOOD COUNT 8.9 10^3/uL (4.0-10.0)
[2018-05-04 07:39] LABS: ALBUMIN 2.2 GM/DL (3.2-5.2); ALBUMIN/GLOBULIN RATIO 0.52 (1.00-1.93); ALKALINE PHOSPHATASE 95 U/L (45-117); ALT/SGPT 30 U/L (12-78); ANION GAP 8 MEQ/L (8-16); AST/SGOT 25 U/L (7-37); BILIRUBIN,TOTAL 0.4 MG/DL (0.2-1.0); BLOOD UREA NITROGEN 13 MG/DL (7-18); CALCIUM LEVEL 8.2 MG/DL (8.8-10.2); CARBON DIOXIDE LEVEL 26 MEQ/L (21-32); CHLORIDE LEVEL 98 MEQ/L (98-107); CREATININE FOR GFR 0.69 MG/DL (0.55-1.30); GLOMERULAR FILTRATION RATE > 60.0 (>39); GLUCOSE, FASTING 120 MG/DL (70-100); POTASSIUM SERUM 4.1 MEQ/L (3.5-5.1); SODIUM LEVEL 132 MEQ/L (136-145); TOTAL PROTEIN 6.4 GM/DL (6.4-8.2)
[2018-05-04] MEDS ORDERED: ASPIRIN 81 MG ENTERIC TAB PO (09:00)
[2018-05-04] MEDS ORDERED: IRBESARTAN 150 MG TAB PO (09:00)
[2018-05-04] MEDS ORDERED: POTASSIUM CHLORIDE 10 MEQ SR TABLET PO (09:00)
[2018-05-04] MEDS ORDERED: PERPHENAZINE 2 MG TAB PO (09:00)
[2018-05-04] MEDS ORDERED: FLUBLOK(EGG FREE)(QUAD)INFLUENZA VACC 0.5ML SYRINGE (90682)18YRS&OLDER IM (09:00)
[2018-05-04] MEDS: levETIRAcetam ORAL SOLUTION 500 MG/5 ML UDC GT ×2 (09:38→21:49)
[2018-05-04] MEDS: POTASSIUM CHLORIDE 10% LIQ 20 MEQ/15 ML UDC PEG (09:38)
[2018-05-04] MEDS: LANSOPRAZOLE SUSPENSION 30 MG/10 ML ORAL SYRINGE (FIRST-LANSOPRAZOLE) PEG ×2 (09:38→21:50)
[2018-05-04] MEDS: BACTRIM 160MG/800MG DS TAB PEG ×2 (09:39→21:48)
[2018-05-04] MEDS: METOPROLOL TART 50 MG TAB PEG ×3 (09:39→21:49)
[2018-05-04] MEDS: PERPHENAZINE 2 MG TAB PEG ×2 (09:39→21:50)
[2018-05-04] MEDS: ENOXAPARIN 40 MG/0.4 ML SYRINGE (J1650) SC (09:40)
[2018-05-04] MEDS: ASPIRIN 81 MG ENTERIC TAB PEG (09:41)
[2018-05-04] MEDS: CHLORHEXIDINE ORAL RINSE 0.12%/15ML 120ML BOTTLE SSP ×2 (09:57→22:07)
[2018-05-04] MEDS: IRBESARTAN 150 MG TAB PEG (09:58)
[2018-05-04] MEDS: MORPHINE 4 MG/ML 1ML VIAL/SYRINGE (J2270) IV ×2 (09:58→22:07)
[2018-05-04] MEDS: IPRATROPIUM 0.5MG/ALBUTEROL 2.5MG INH SOL UD 3ML (DUONEB)(J7620) NEB (20:37)
[2018-05-04] MEDS: ATORVASTATIN 10 MG TAB PEG (21:48)
[2018-05-04] MEDS: FLUTICASONE PROP 0.05% NASAL SPRAY 16 GM (FLONASE) NARES (21:50)
[2018-05-04] MEDS: traZODone 25MG PER 1/2 TABLET PEG (21:51)
[2018-05-04] MEDS: LIDOCAINE 5% (LIDODERM) PATCH TD (22:09)
[2018-05-05 02:10] LABS: AMORPHOUS SEDIMENT SMALL (NEGATIVE); APPEARANCE, URINE HAZY (CLEAR); BACTERIA, URINE AUTO NEGATIVE (NEGATIVE); BILIRUBIN, URINE AUTO NEGATIVE (NEGATIVE); BLOOD, URINE BLOOD NEGATIVE (NEGATIVE); COLOR, URINE YELLOW (YELLOW); GLUCOSE, URINE (UA) AUTO NEGATIVE (NEGATIVE); KETONE, URINE AUTO NEGATIVE (NEGATIVE); LEUKOCYTE ESTERASE, URINE AUTO NEGATIVE (NEGATIVE); NITRITE, URINE AUTO NEGATIVE (NEGATIVE); PROTEIN, URINE AUTO NEGATIVE (NEGATIVE); RBC, URINE AUTO 4 /HPF (0-3); SQUAMOUS EPITHELIAL CELL UR AU 3 /HPF (0-6); WBC, URINE AUTO 1 /HPF (0-3)
[2018-05-05] MEDS: LEVOTHYROXINE 88MCG TABLET (0.088 MG) PEG (05:29)
[2018-05-05 07:11] LABS: ANION GAP 9 MEQ/L (8-16); BLOOD UREA NITROGEN 11 MG/DL (7-18); CALCIUM LEVEL 8.2 MG/DL (8.8-10.2); CARBON DIOXIDE LEVEL 25 MEQ/L (21-32); CHLORIDE LEVEL 100 MEQ/L (98-107); CREATININE FOR GFR 0.63 MG/DL (0.55-1.30); GLOMERULAR FILTRATION RATE > 60.0 (>39); GLUCOSE, FASTING 113 MG/DL (70-100); POTASSIUM SERUM 4.5 MEQ/L (3.5-5.1); SODIUM LEVEL 134 MEQ/L (136-145)
[2018-05-05] MEDS: POTASSIUM CHLORIDE 10% LIQ 20 MEQ/15 ML UDC PEG (08:25)
[2018-05-05] MEDS: ENOXAPARIN 40 MG/0.4 ML SYRINGE (J1650) SC (08:25)
[2018-05-05] MEDS: LANSOPRAZOLE SUSPENSION 30 MG/10 ML ORAL SYRINGE (FIRST-LANSOPRAZOLE) PEG ×2 (08:25→21:26)
[2018-05-05] MEDS: levETIRAcetam ORAL SOLUTION 500 MG/5 ML UDC GT ×2 (08:25→21:28)
[2018-05-05] MEDS: BACTRIM 160MG/800MG DS TAB PEG ×2 (08:25→21:26)
[2018-05-05] MEDS: IRBESARTAN 150 MG TAB PEG (08:26)
[2018-05-05] MEDS: ASPIRIN 81 MG ENTERIC TAB PEG (08:26)
[2018-05-05] MEDS: **NOTE PATIENT COMMENT** MISC XX (08:27)
[2018-05-05] MEDS: FLUTICASONE PROP 0.05% NASAL SPRAY 16 GM (FLONASE) NARES ×2 (08:27→21:30)
[2018-05-05] MEDS: CHLORHEXIDINE ORAL RINSE 0.12%/15ML 120ML BOTTLE SSP ×2 (08:27→21:28)
[2018-05-05] MEDS: MORPHINE 4 MG/ML 1ML VIAL/SYRINGE (J2270) IV ×2 (08:28→22:26)
[2018-05-05] MEDS: NYSTATIN 100,000 UNITS/GM TOPICAL PWD 15 GM TOP ×2 (09:00→21:31)
[2018-05-05] MEDS: NYSTATIN CREAM 15 GM TOP ×2 (09:00→21:32)
[2018-05-05] MEDS: METOPROLOL TART 50 MG TAB PEG ×2 (09:53→21:28)
[2018-05-05] MEDS: PERPHENAZINE 2 MG TAB PEG ×2 (09:53→21:26)
[2018-05-05] MEDS: IPRATROPIUM 0.5MG/ALBUTEROL 2.5MG INH SOL UD 3ML (DUONEB)(J7620) NEB ×2 (10:13→19:38)
[2018-05-05] MEDS: ACETAMINOPHEN TAB 650MG DOSE (2X325MG) PO (21:25)
[2018-05-05] MEDS: ATORVASTATIN 10 MG TAB PEG (21:26)
[2018-05-05] MEDS: LIDOCAINE 5% (LIDODERM) PATCH TD (21:31)
[2018-05-05] MEDS: traZODone 25MG PER 1/2 TABLET PEG (21:36)
[2018-05-06] MEDS: LEVOTHYROXINE 88MCG TABLET (0.088 MG) PEG (05:53)
[2018-05-06 07:01] LABS: BASO # 0.1 10^3/uL (0.0-0.2); BASO % 0.6 % (0.0-1.0); EOS # 0.2 10^3/uL (0.0-0.50); EOS % 1.6 % (0.0-3.0); IMMATURE GRANULOCYTE % 0.5 % (0-3.0); LYMPH # 1.4 10^3/uL (1.5-4.5); LYMPH % 14.8 % (24.0-44.0); MEAN CORPUSCULAR HEMOGLOBIN 26.2 pg (27.0-33.0); MEAN CORPUSCULAR HGB CONC 32.1 g/dl (32.0-36.5); MEAN CORPUSCULAR VOLUME 81.4 fl (80.0-96.0); MONO # 1.1 10^3/uL (0.0-0.8); MONO % 11.1 % (0.0-5.0); NEUTROPHILS # 6.8 10^3/uL (1.8-7.7); NEUTROPHILS % 71.4 % (36.0-66.0); PLATELET COUNT, AUTOMATED 529 10^3/uL (150-450); RED BLOOD COUNT 3.44 10^6/uL (4.00-5.40); RED CELL DISTRIBUTION WIDTH 20.4 % (11.5-14.5); WHITE BLOOD COUNT 9.5 10^3/uL (4.0-10.0)
[2018-05-06 07:24] LABS: ANION GAP 8 MEQ/L (8-16); BLOOD UREA NITROGEN 17 MG/DL (7-18); CALCIUM LEVEL 8.5 MG/DL (8.8-10.2); CARBON DIOXIDE LEVEL 25 MEQ/L (21-32); CHLORIDE LEVEL 100 MEQ/L (98-107); CREATININE FOR GFR 0.59 MG/DL (0.55-1.30); GLOMERULAR FILTRATION RATE > 60.0 (>39); GLUCOSE, FASTING 126 MG/DL (70-100); SODIUM LEVEL 133 MEQ/L (136-145)
[2018-05-06] MEDS: levETIRAcetam ORAL SOLUTION 500 MG/5 ML UDC GT ×2 (07:29→20:06)
[2018-05-06] MEDS: POTASSIUM CHLORIDE 10% LIQ 20 MEQ/15 ML UDC PEG (07:29)
[2018-05-06] MEDS: BACTRIM 160MG/800MG DS TAB PEG ×2 (07:30→20:10)
[2018-05-06] MEDS: ASPIRIN 81 MG ENTERIC TAB PEG (07:30)
[2018-05-06] MEDS: PERPHENAZINE 2 MG TAB PEG ×2 (07:30→20:07)
[2018-05-06] MEDS: ACETAMINOPHEN TAB 650MG DOSE (2X325MG) PO ×3 (07:30→20:07)
[2018-05-06] MEDS: ENOXAPARIN 40 MG/0.4 ML SYRINGE (J1650) SC (07:31)
[2018-05-06] MEDS: IRBESARTAN 150 MG TAB PEG (07:31)
[2018-05-06] MEDS: LANSOPRAZOLE SUSPENSION 30 MG/10 ML ORAL SYRINGE (FIRST-LANSOPRAZOLE) PEG ×2 (07:31→20:10)
[2018-05-06] MEDS: **NOTE PATIENT COMMENT** MISC XX (07:32)
[2018-05-06] MEDS: NYSTATIN CREAM 15 GM TOP ×2 (07:32→20:13)
[2018-05-06] MEDS: NYSTATIN 100,000 UNITS/GM TOPICAL PWD 15 GM TOP ×2 (07:32→20:13)
[2018-05-06] MEDS: FLUTICASONE PROP 0.05% NASAL SPRAY 16 GM (FLONASE) NARES ×3 (07:32→20:18)
[2018-05-06] MEDS: CHLORHEXIDINE ORAL RINSE 0.12%/15ML 120ML BOTTLE SSP ×2 (07:33→20:10)
[2018-05-06] MEDS: IPRATROPIUM 0.5MG/ALBUTEROL 2.5MG INH SOL UD 3ML (DUONEB)(J7620) NEB ×2 (08:01→20:45)
[2018-05-06] MEDS: METOPROLOL TART 50 MG TAB PEG ×2 (10:00→20:10)
[2018-05-06] MEDS: ATORVASTATIN 10 MG TAB PEG (20:10)
[2018-05-06] MEDS: LIDOCAINE 5% (LIDODERM) PATCH TD (20:12)
[2018-05-06] MEDS: traZODone 25MG PER 1/2 TABLET PEG (23:51)
[2018-05-07] MEDS: LEVOTHYROXINE 88MCG TABLET (0.088 MG) PEG (06:35)
[2018-05-07] MEDS: ACETAMINOPHEN TAB 650MG DOSE (2X325MG) PO (06:36)
[2018-05-07 07:10] LABS: ANION GAP 7 MEQ/L (8-16); BLOOD UREA NITROGEN 11 MG/DL (7-18); CALCIUM LEVEL 8.4 MG/DL (8.8-10.2); CARBON DIOXIDE LEVEL 26 MEQ/L (21-32); CHLORIDE LEVEL 102 MEQ/L (98-107); CREATININE FOR GFR 0.61 MG/DL (0.55-1.30); GLOMERULAR FILTRATION RATE > 60.0 (>39); GLUCOSE, FASTING 116 MG/DL (70-100); POTASSIUM SERUM 3.9 MEQ/L (3.5-5.1); SODIUM LEVEL 135 MEQ/L (136-145)
[2018-05-07] MEDS: IPRATROPIUM 0.5MG/ALBUTEROL 2.5MG INH SOL UD 3ML (DUONEB)(J7620) NEB ×2 (07:35→19:31)
[2018-05-07] MEDS: levETIRAcetam ORAL SOLUTION 500 MG/5 ML UDC GT (08:15)
[2018-05-07] MEDS: LANSOPRAZOLE SUSPENSION 30 MG/10 ML ORAL SYRINGE (FIRST-LANSOPRAZOLE) PEG (08:15)
[2018-05-07] MEDS: ASPIRIN 81 MG ENTERIC TAB PEG (08:15)
[2018-05-07] MEDS: POTASSIUM CHLORIDE 10% LIQ 20 MEQ/15 ML UDC PEG (08:15)
[2018-05-07] MEDS: BACTRIM 160MG/800MG DS TAB PEG (08:15)
[2018-05-07] MEDS: PERPHENAZINE 2 MG TAB PEG (08:16)
[2018-05-07] MEDS: METOPROLOL TART 50 MG TAB PEG (08:16)
[2018-05-07] MEDS: ENOXAPARIN 40 MG/0.4 ML SYRINGE (J1650) SC (08:16)
[2018-05-07] MEDS: IRBESARTAN 150 MG TAB PEG (08:17)
[2018-05-07] MEDS: NYSTATIN 100,000 UNITS/GM TOPICAL PWD 15 GM TOP (08:20)
[2018-05-07] MEDS: NYSTATIN CREAM 15 GM TOP (08:21)
[2018-05-07] MEDS: FLUTICASONE PROP 0.05% NASAL SPRAY 16 GM (FLONASE) NARES (08:21)
[2018-05-07] MEDS: CHLORHEXIDINE ORAL RINSE 0.12%/15ML 120ML BOTTLE SSP (08:21)
[2018-05-07] MEDS: **NOTE PATIENT COMMENT** MISC XX (08:22)
[2018-05-07 10:55] LABS: BASO # 0.1 10^3/uL (0.0-0.2); BASO % 0.5 % (0.0-1.0); EOS # 0.1 10^3/uL (0.0-0.50); EOS % 0.9 % (0.0-3.0); HEMATOCRIT 31.6 % (36.0-47.0); HEMOGLOBIN 10.3 g/dl (12.0-15.5); IMMATURE GRANULOCYTE % 0.5 % (0-3.0); LYMPH # 0.9 10^3/uL (1.5-4.5); LYMPH % 8.5 % (24.0-44.0); MEAN CORPUSCULAR HEMOGLOBIN 26.5 pg (27.0-33.0); MEAN CORPUSCULAR HGB CONC 32.6 g/dl (32.0-36.5); MEAN CORPUSCULAR VOLUME 81.4 fl (80.0-96.0); MONO % 8.8 % (0.0-5.0); NEUTROPHILS # 8.8 10^3/uL (1.8-7.7); NEUTROPHILS % 80.8 % (36.0-66.0); PLATELET COUNT, AUTOMATED 581 10^3/uL (150-450); RED BLOOD COUNT 3.88 10^6/uL (4.00-5.40); RED CELL DISTRIBUTION WIDTH 20.8 % (11.5-14.5); WHITE BLOOD COUNT 10.9 10^3/uL (4.0-10.0)
[2018-05-07] MEDS: SODIUM CHLORIDE NASAL 0.65% SPRAY BTL (OCEAN) (16:00)
[2018-05-07] MEDS ORDERED: ISOVUE-370 76% 100ML VIAL (Q9967) As Ordered (16:36)
[2018-05-07] MEDS ORDERED: PERCOCET 5MG/325MG TAB PEG (17:15)
[2018-05-07] MEDS: WARFARIN SOD 5 MG TAB PO (18:06)
[2018-05-07] MEDS: ENOXAPARIN 100MG/1ML SYRINGE (J1650) SC (18:23)
== END 2018-05-07 20:25 | disposition short-term general hospital (02) | DRG 559 ==
LOC: M PM&R 15:05
PROVIDERS: Physical Medicine & Rehabilitation
DX: S82.852D Displaced trimalleolar fracture of left lower leg, subsequent encounter for closed fracture with routine healing (principal); J69.0 Pneumonitis due to inhalation of food and vomit; I26.99 Other pulmonary embolism without acute cor pulmonale; I82.432 Acute embolism and thrombosis of left popliteal vein; R53.81 Other malaise; F31.9 Bipolar disorder, unspecified; M17.0 Bilateral primary osteoarthritis of knee; E87.6 Hypokalemia; K22.5 Diverticulum of esophagus, acquired; K21.9 Gastro-esophageal reflux disease without esophagitis; I10 Essential (primary) hypertension; D63.8 Anemia in other chronic diseases classified elsewhere; W18.09XD Striking against other object with subsequent fall, subsequent encounter; Y92.009 Unspecified place in unspecified non-institutional (private) residence as the place of occurrence of the external cause; Z79.82 Long term (current) use of aspirin; Z79.899 Other long term (current) drug therapy

== ENCOUNTER 2018-05-07 20:30 | Inpatient (IN) | payer MEDICARE, OTHER ==
[2018-05-07] MEDS ORDERED: PILL CRUSHER/CUTTER 1 EACH XX (23:00)
[2018-05-07] MEDS: CHLORHEXIDINE ORAL RINSE 0.12%/15ML 120ML BOTTLE SSP (23:40)
[2018-05-07] MEDS: traZODone 50 MG TAB PEG (23:41)
[2018-05-07] MEDS: NYSTATIN 100,000 UNITS/GM TOPICAL PWD 15 GM TOP (23:41)
[2018-05-07] MEDS: FLUTICASONE PROP 0.05% NASAL SPRAY 16 GM (FLONASE) NARES (23:41)
[2018-05-07] MEDS: METOPROLOL TART 50 MG TAB PEG (23:42)
[2018-05-07] MEDS: levETIRAcetam ORAL SOLUTION 500 MG/5 ML UDC GT (23:42)
[2018-05-07] MEDS: ATORVASTATIN 10 MG TAB PEG (23:42)
[2018-05-07] MEDS: LANSOPRAZOLE SUSPENSION 30 MG/10 ML ORAL SYRINGE (FIRST-LANSOPRAZOLE) PEG (23:42)
[2018-05-07] MEDS: SODIUM CHLORIDE NASAL 0.65% SPRAY BTL (OCEAN) (23:43)
[2018-05-07] MEDS: PERPHENAZINE 2 MG TAB PO (23:43)
[2018-05-08] MEDS: LEVOTHYROXINE 88MCG TABLET (0.088 MG) PEG (05:46)
[2018-05-08] MEDS ORDERED: HEPARIN SOD (PORCINE) 5000 UNITS/ML VIAL IV (07:00)
[2018-05-08] MEDS ORDERED: HEPARIN DRIP 25,000 UNITS in APPROPRIATE DILUENT 1 EA IV (07:00)
[2018-05-08 07:33] LABS: HEMATOCRIT 28.7 % (36.0-47.0); HEMOGLOBIN 8.9 g/dl (12.0-15.5); MEAN CORPUSCULAR HEMOGLOBIN 26.1 pg (27.0-33.0); MEAN CORPUSCULAR VOLUME 84.2 fl (80.0-96.0); PLATELET COUNT, AUTOMATED 504 10^3/uL (150-450); RED BLOOD COUNT 3.41 10^6/uL (4.00-5.40); RED CELL DISTRIBUTION WIDTH 20.7 % (11.5-14.5); WHITE BLOOD COUNT 6.8 10^3/uL (4.0-10.0)
[2018-05-08 07:45] LABS: PARTIAL THROMBOPLASTIN TIME 28.6 SECONDS (25.4-37.6)
[2018-05-08 07:53] LABS: ANION GAP 6 MEQ/L (8-16); BLOOD UREA NITROGEN 12 MG/DL (7-18); CALCIUM LEVEL 8.3 MG/DL (8.8-10.2); CARBON DIOXIDE LEVEL 27 MEQ/L (21-32); CHLORIDE LEVEL 103 MEQ/L (98-107); CREATININE FOR GFR 0.64 MG/DL (0.55-1.30); GLOMERULAR FILTRATION RATE > 60.0 (>39); GLUCOSE, FASTING 126 MG/DL (70-100); MAGNESIUM LEVEL 2.4 MG/DL (1.8-2.4); POTASSIUM SERUM 3.9 MEQ/L (3.5-5.1); SODIUM LEVEL 136 MEQ/L (136-145)
[2018-05-08] MEDS: POTASSIUM CHLORIDE 10% LIQ 20 MEQ/15 ML UDC PEG (09:22)
[2018-05-08] MEDS: LANSOPRAZOLE SUSPENSION 30 MG/10 ML ORAL SYRINGE (FIRST-LANSOPRAZOLE) PEG ×2 (09:22→20:57)
[2018-05-08] MEDS: levETIRAcetam ORAL SOLUTION 500 MG/5 ML UDC GT ×2 (09:22→20:56)
[2018-05-08] MEDS: ASPIRIN 81 MG ENTERIC TAB PEG (09:23)
[2018-05-08] MEDS: IRBESARTAN 150 MG TAB PEG (09:23)
[2018-05-08] MEDS: METOPROLOL TART 50 MG TAB PEG ×2 (09:24→20:59)
[2018-05-08] MEDS: FLUTICASONE PROP 0.05% NASAL SPRAY 16 GM (FLONASE) NARES ×2 (09:24→21:00)
[2018-05-08] MEDS: NYSTATIN 100,000 UNITS/GM TOPICAL PWD 15 GM TOP ×2 (09:24→21:00)
[2018-05-08] MEDS: SODIUM CHLORIDE NASAL 0.65% SPRAY BTL (OCEAN) ×3 (09:24→20:58)
[2018-05-08] MEDS: CHLORHEXIDINE ORAL RINSE 0.12%/15ML 120ML BOTTLE SSP ×2 (09:24→21:00)
[2018-05-08] MEDS: MORPHINE 4 MG/ML 1ML VIAL/SYRINGE (J2270) IV ×2 (11:10→21:08)
[2018-05-08 13:46] LABS: PARTIAL THROMBOPLASTIN TIME 25.7 SECONDS (25.4-37.6)
[2018-05-08] MEDS: APIXABAN 5 MG TAB (ELIQUIS) PEG ×2 (14:58→20:59)
[2018-05-08] MEDS: ACETAMINOPHEN TAB 650MG DOSE (2X325MG) PO (15:00)
[2018-05-08] MEDS: PERPHENAZINE 2 MG TAB PO (20:57)
[2018-05-08] MEDS: ATORVASTATIN 10 MG TAB PEG (20:59)
[2018-05-08] MEDS: traZODone 50 MG TAB PEG (21:07)
[2018-05-09] MEDS: ACETAMINOPHEN TAB 650MG DOSE (2X325MG) PO ×3 (04:59→16:37)
[2018-05-09] MEDS: LEVOTHYROXINE 88MCG TABLET (0.088 MG) PEG (05:00)
[2018-05-09 05:15] LABS: HEMOGLOBIN 9.5 g/dl (12.0-15.5); MEAN CORPUSCULAR HEMOGLOBIN 26.5 pg (27.0-33.0); MEAN CORPUSCULAR HGB CONC 31.7 g/dl (32.0-36.5); MEAN CORPUSCULAR VOLUME 83.8 fl (80.0-96.0); PLATELET COUNT, AUTOMATED 519 10^3/uL (150-450); RED BLOOD COUNT 3.58 10^6/uL (4.00-5.40); WHITE BLOOD COUNT 6.7 10^3/uL (4.0-10.0)
[2018-05-09 05:37] LABS: ANION GAP 6 MEQ/L (8-16); BLOOD UREA NITROGEN 10 MG/DL (7-18); CALCIUM LEVEL 8.4 MG/DL (8.8-10.2); CARBON DIOXIDE LEVEL 28 MEQ/L (21-32); CHLORIDE LEVEL 103 MEQ/L (98-107); CREATININE FOR GFR 0.63 MG/DL (0.55-1.30); GLOMERULAR FILTRATION RATE > 60.0 (>39); GLUCOSE, FASTING 106 MG/DL (70-100); MAGNESIUM LEVEL 2.3 MG/DL (1.8-2.4); POTASSIUM SERUM 3.8 MEQ/L (3.5-5.1); SODIUM LEVEL 137 MEQ/L (136-145)
[2018-05-09] MEDS: NYSTATIN 100,000 UNITS/GM TOPICAL PWD 15 GM TOP ×2 (09:34→21:53)
[2018-05-09] MEDS: SODIUM CHLORIDE NASAL 0.65% SPRAY BTL (OCEAN) ×3 (09:34→21:53)
[2018-05-09] MEDS: levETIRAcetam ORAL SOLUTION 500 MG/5 ML UDC GT ×2 (09:34→21:53)
[2018-05-09] MEDS: FLUTICASONE PROP 0.05% NASAL SPRAY 16 GM (FLONASE) NARES ×2 (09:34→21:52)
[2018-05-09] MEDS: LANSOPRAZOLE SUSPENSION 30 MG/10 ML ORAL SYRINGE (FIRST-LANSOPRAZOLE) PEG ×2 (09:34→22:07)
[2018-05-09] MEDS: CHLORHEXIDINE ORAL RINSE 0.12%/15ML 120ML BOTTLE SSP ×2 (09:34→21:53)
[2018-05-09] MEDS: POTASSIUM CHLORIDE 10% LIQ 20 MEQ/15 ML UDC PEG (09:35)
[2018-05-09] MEDS: ASPIRIN 81 MG ENTERIC TAB PEG (09:35)
[2018-05-09] MEDS: APIXABAN 5 MG TAB (ELIQUIS) PEG ×2 (09:35→21:55)
[2018-05-09] MEDS: METOPROLOL TART 50 MG TAB PEG ×2 (09:35→22:07)
[2018-05-09] MEDS: IRBESARTAN 150 MG TAB PEG (09:36)
[2018-05-09] MEDS: MORPHINE 4 MG/ML 1ML VIAL/SYRINGE (J2270) IV (21:52)
[2018-05-09] MEDS: traZODone 50 MG TAB PEG (21:53)
[2018-05-09] MEDS: PERPHENAZINE 2 MG TAB PO (21:54)
[2018-05-09] MEDS: ATORVASTATIN 10 MG TAB PEG (21:55)
[2018-05-10 04:52] LABS: HEMATOCRIT 33.8 % (36.0-47.0); HEMOGLOBIN 10.6 g/dl (12.0-15.5); MEAN CORPUSCULAR HEMOGLOBIN 26.2 pg (27.0-33.0); MEAN CORPUSCULAR HGB CONC 31.4 g/dl (32.0-36.5); MEAN CORPUSCULAR VOLUME 83.7 fl (80.0-96.0); PLATELET COUNT, AUTOMATED 575 10^3/uL (150-450); RED BLOOD COUNT 4.04 10^6/uL (4.00-5.40); WHITE BLOOD COUNT 7.4 10^3/uL (4.0-10.0)
[2018-05-10 05:12] LABS: ANION GAP 7 MEQ/L (8-16); BLOOD UREA NITROGEN 14 MG/DL (7-18); CALCIUM LEVEL 8.8 MG/DL (8.8-10.2); CARBON DIOXIDE LEVEL 27 MEQ/L (21-32); CHLORIDE LEVEL 101 MEQ/L (98-107); CREATININE FOR GFR 0.64 MG/DL (0.55-1.30); GLOMERULAR FILTRATION RATE > 60.0 (>39); GLUCOSE, FASTING 118 MG/DL (70-100); MAGNESIUM LEVEL 2.3 MG/DL (1.8-2.4); POTASSIUM SERUM 3.9 MEQ/L (3.5-5.1); SODIUM LEVEL 135 MEQ/L (136-145)
[2018-05-10] MEDS: LEVOTHYROXINE 88MCG TABLET (0.088 MG) PEG (05:14)
[2018-05-10] MEDS: ACETAMINOPHEN TAB 650MG DOSE (2X325MG) PO ×3 (05:15→21:10)
[2018-05-10] MEDS: SODIUM CHLORIDE NASAL 0.65% SPRAY BTL (OCEAN) ×3 (08:09→20:53)
[2018-05-10] MEDS: FLUTICASONE PROP 0.05% NASAL SPRAY 16 GM (FLONASE) NARES ×2 (08:09→20:53)
[2018-05-10] MEDS: NYSTATIN 100,000 UNITS/GM TOPICAL PWD 15 GM TOP ×2 (08:10→20:53)
[2018-05-10] MEDS: LANSOPRAZOLE SUSPENSION 30 MG/10 ML ORAL SYRINGE (FIRST-LANSOPRAZOLE) PEG ×2 (08:10→20:53)
[2018-05-10] MEDS: CHLORHEXIDINE ORAL RINSE 0.12%/15ML 120ML BOTTLE SSP ×2 (08:10→20:53)
[2018-05-10] MEDS: POTASSIUM CHLORIDE 10% LIQ 20 MEQ/15 ML UDC PEG (08:11)
[2018-05-10] MEDS: METOPROLOL TART 50 MG TAB PEG ×2 (08:11→20:54)
[2018-05-10] MEDS: IRBESARTAN 150 MG TAB PEG (08:11)
[2018-05-10] MEDS: APIXABAN 5 MG TAB (ELIQUIS) PEG ×2 (08:12→20:54)
[2018-05-10] MEDS: levETIRAcetam ORAL SOLUTION 500 MG/5 ML UDC GT ×2 (08:12→20:53)
[2018-05-10] MEDS: ASPIRIN 81 MG ENTERIC TAB PEG (08:12)
[2018-05-10] MEDS: PERPHENAZINE 2 MG TAB PO (20:52)
[2018-05-10] MEDS: ATORVASTATIN 10 MG TAB PEG (20:54)
[2018-05-10] MEDS: traZODone 50 MG TAB PEG (20:56)
[2018-05-11] MEDS: ACETAMINOPHEN TAB 650MG DOSE (2X325MG) PO (05:30)
[2018-05-11] MEDS: LEVOTHYROXINE 88MCG TABLET (0.088 MG) PEG (05:31)
[2018-05-11 06:20] LABS: HEMATOCRIT 32.9 % (36.0-47.0); HEMOGLOBIN 10.5 g/dl (12.0-15.5); MEAN CORPUSCULAR HEMOGLOBIN 26.2 pg (27.0-33.0); MEAN CORPUSCULAR HGB CONC 31.9 g/dl (32.0-36.5); PLATELET COUNT, AUTOMATED 561 10^3/uL (150-450); RED BLOOD COUNT 4.01 10^6/uL (4.00-5.40); RED CELL DISTRIBUTION WIDTH 20.2 % (11.5-14.5); WHITE BLOOD COUNT 7.2 10^3/uL (4.0-10.0)
[2018-05-11 06:45] LABS: ANION GAP 7 MEQ/L (8-16); BLOOD UREA NITROGEN 14 MG/DL (7-18); CARBON DIOXIDE LEVEL 28 MEQ/L (21-32); CHLORIDE LEVEL 101 MEQ/L (98-107); CREATININE FOR GFR 0.58 MG/DL (0.55-1.30); GLOMERULAR FILTRATION RATE > 60.0 (>39); GLUCOSE, FASTING 117 MG/DL (70-100); MAGNESIUM LEVEL 2.5 MG/DL (1.8-2.4); POTASSIUM SERUM 3.6 MEQ/L (3.5-5.1); SODIUM LEVEL 136 MEQ/L (136-145)
[2018-05-11] MEDS: POTASSIUM CHLORIDE 10% LIQ 20 MEQ/15 ML UDC PEG (09:43)
[2018-05-11] MEDS: levETIRAcetam ORAL SOLUTION 500 MG/5 ML UDC GT (09:43)
[2018-05-11] MEDS: SODIUM CHLORIDE NASAL 0.65% SPRAY BTL (OCEAN) (09:44)
[2018-05-11] MEDS: LANSOPRAZOLE SUSPENSION 30 MG/10 ML ORAL SYRINGE (FIRST-LANSOPRAZOLE) PEG (09:44)
[2018-05-11] MEDS: FLUTICASONE PROP 0.05% NASAL SPRAY 16 GM (FLONASE) NARES (09:44)
[2018-05-11] MEDS: NYSTATIN 100,000 UNITS/GM TOPICAL PWD 15 GM TOP (09:44)
[2018-05-11] MEDS: METOPROLOL TART 50 MG TAB PEG (09:45)
[2018-05-11] MEDS: CHLORHEXIDINE ORAL RINSE 0.12%/15ML 120ML BOTTLE SSP (09:45)
[2018-05-11] MEDS: ASPIRIN 81 MG ENTERIC TAB PEG (09:46)
[2018-05-11] MEDS: IRBESARTAN 150 MG TAB PEG (09:46)
[2018-05-11] MEDS: APIXABAN 5 MG TAB (ELIQUIS) PEG (09:46)
== END 2018-05-11 10:50 | DRG 299 ==
LOC: M PCU 20:30
DX: I82.432 Acute embolism and thrombosis of left popliteal vein (principal); I26.99 Other pulmonary embolism without acute cor pulmonale; K22.5 Diverticulum of esophagus, acquired; F31.9 Bipolar disorder, unspecified; I10 Essential (primary) hypertension; I82.811 Embolism and thrombosis of superficial veins of right lower extremity; E78.5 Hyperlipidemia, unspecified; K21.9 Gastro-esophageal reflux disease without esophagitis; E03.9 Hypothyroidism, unspecified; Z93.1 Gastrostomy status; Z79.899 Other long term (current) drug therapy; Z79.82 Long term (current) use of aspirin

== ENCOUNTER 2018-05-11 10:57 | Inpatient (IN) | payer MEDICARE, OTHER ==
[2018-05-11] MEDS: NYSTATIN CREAM 15 GM TOP ×2 (09:00→21:32)
[2018-05-11] MEDS ORDERED: ALBUTEROL SULFATE 2.5 MG/0.5 ML INH NEB SOLN NEB (12:30)
[2018-05-11] MEDS ORDERED: ACETAMINOPHEN 325 MG/10.15 ML UDC GT (12:30)
[2018-05-11] MEDS: PERCOCET 5MG/325MG TAB PEG ×2 (14:15→21:33)
[2018-05-11] MEDS: SODIUM CHLORIDE NASAL 0.65% SPRAY BTL (OCEAN) ×2 (17:36→21:31)
[2018-05-11] MEDS: IPRATROPIUM 0.5MG/ALBUTEROL 2.5MG INH SOL UD 3ML (DUONEB)(J7620) INH (20:41)
[2018-05-11] MEDS: CHLORHEXIDINE ORAL RINSE 0.12%/15ML 120ML BOTTLE SSP (21:00)
[2018-05-11] MEDS: NYSTATIN 100,000 UNITS/GM TOPICAL PWD 15 GM TOP (21:31)
[2018-05-11] MEDS: FLUTICASONE PROP 0.05% NASAL SPRAY 16 GM (FLONASE) NARES (21:31)
[2018-05-11] MEDS: levETIRAcetam ORAL SOLUTION 500 MG/5 ML UDC GT (21:31)
[2018-05-11] MEDS: LANSOPRAZOLE SUSPENSION 30 MG/10 ML ORAL SYRINGE (FIRST-LANSOPRAZOLE) PEG (21:31)
[2018-05-11] MEDS: guaiFENesin 200 MG TAB PEG (21:32)
[2018-05-11] MEDS: PERPHENAZINE 2 MG TAB PEG (21:32)
[2018-05-11] MEDS: APIXABAN 5 MG TAB (ELIQUIS) PEG (21:33)
[2018-05-11] MEDS: traZODone 50 MG TAB PEG (21:34)
[2018-05-11] MEDS: ATORVASTATIN 10 MG TAB PEG (21:34)
[2018-05-11] MEDS: METOPROLOL TART 50 MG TAB PEG (21:35)
[2018-05-11] MEDS: LIDOCAINE 5% (LIDODERM) PATCH TD (21:36)
[2018-05-12] MEDS: LEVOTHYROXINE 88MCG TABLET (0.088 MG) PEG (05:51)
[2018-05-12] MEDS: PERCOCET 5MG/325MG TAB PEG ×3 (05:52→21:50)
[2018-05-12 07:09] LABS: HEMATOCRIT 34.2 % (36.0-47.0); HEMOGLOBIN 10.6 g/dl (12.0-15.5); MEAN CORPUSCULAR HEMOGLOBIN 26.5 pg (27.0-33.0); MEAN CORPUSCULAR VOLUME 85.5 fl (80.0-96.0); PLATELET COUNT, AUTOMATED 405 10^3/uL (150-450); RED CELL DISTRIBUTION WIDTH 20.5 % (11.5-14.5); WHITE BLOOD COUNT 9.4 10^3/uL (4.0-10.0)
[2018-05-12 07:36] LABS: ALBUMIN 2.5 GM/DL (3.2-5.2); ALBUMIN/GLOBULIN RATIO 0.63 (1.00-1.93); ALKALINE PHOSPHATASE 81 U/L (45-117); ALT/SGPT 21 U/L (12-78); ANION GAP 8 MEQ/L (8-16); AST/SGOT 12 U/L (7-37); BILIRUBIN,TOTAL 0.4 MG/DL (0.2-1.0); BLOOD UREA NITROGEN 19 MG/DL (7-18); CALCIUM LEVEL 8.7 MG/DL (8.8-10.2); CARBON DIOXIDE LEVEL 27 MEQ/L (21-32); CHLORIDE LEVEL 101 MEQ/L (98-107); CREATININE FOR GFR 0.72 MG/DL (0.55-1.30); GLOMERULAR FILTRATION RATE > 60.0 (>39); GLUCOSE, FASTING 131 MG/DL (70-100); POTASSIUM SERUM 3.7 MEQ/L (3.5-5.1); SODIUM LEVEL 136 MEQ/L (136-145); TOTAL PROTEIN 6.5 GM/DL (6.4-8.2)
[2018-05-12 07:42] LABS: ADD MANUAL DIFFER YES; DIFF SLIDE NUMBER 58; POS COUNT POS FLAG; POSITIVE MORPH POS FLAG
[2018-05-12 07:47] LABS: ATYPICAL LYMPH 2 % (0-5); BASOPHILS 1 % (0-4); EOSINOPHILS 2 % (0-5); LYMPHOCYTES 21 % (16-52); MONOCYTES 10 % (0-8); NEUTROPHILS 64 % (35-75); PLATELET ESTIMATE INCREASED (NORMAL)
[2018-05-12 07:48] LABS: ANISOCYTOSIS 1+; POIKILOCYTOSIS 1+; POLYCHROMASIA 1+
[2018-05-12] MEDS: IPRATROPIUM 0.5MG/ALBUTEROL 2.5MG INH SOL UD 3ML (DUONEB)(J7620) INH ×2 (07:53→20:06)
[2018-05-12] MEDS: **NOTE PATIENT COMMENT** MISC XX (09:00)
[2018-05-12] MEDS ORDERED: PERPHENAZINE 2 MG TAB PEG (09:00)
[2018-05-12] MEDS: levETIRAcetam ORAL SOLUTION 500 MG/5 ML UDC GT ×2 (09:07→21:52)
[2018-05-12] MEDS: POTASSIUM CHLORIDE 10% LIQ 20 MEQ/15 ML UDC PEG (09:07)
[2018-05-12] MEDS: LANSOPRAZOLE SUSPENSION 30 MG/10 ML ORAL SYRINGE (FIRST-LANSOPRAZOLE) PEG ×2 (09:08→21:49)
[2018-05-12] MEDS: PERPHENAZINE 2 MG TAB PEG ×2 (09:08→21:53)
[2018-05-12] MEDS: guaiFENesin 200 MG TAB PEG ×2 (09:08→21:52)
[2018-05-12] MEDS: IRBESARTAN 150 MG TAB PEG (09:08)
[2018-05-12] MEDS: CHLORHEXIDINE ORAL RINSE 0.12%/15ML 120ML BOTTLE SSP ×2 (09:09→21:00)
[2018-05-12] MEDS: METOPROLOL TART 50 MG TAB PEG ×2 (09:09→21:53)
[2018-05-12] MEDS: ASPIRIN 81 MG ENTERIC TAB PEG (09:09)
[2018-05-12] MEDS: APIXABAN 5 MG TAB (ELIQUIS) PEG ×2 (09:09→21:52)
[2018-05-12] MEDS: FLUTICASONE PROP 0.05% NASAL SPRAY 16 GM (FLONASE) NARES ×2 (09:10→21:00)
[2018-05-12] MEDS: SODIUM CHLORIDE NASAL 0.65% SPRAY BTL (OCEAN) ×3 (09:10→21:00)
[2018-05-12] MEDS: NYSTATIN 100,000 UNITS/GM TOPICAL PWD 15 GM TOP ×2 (09:10→21:51)
[2018-05-12] MEDS: NYSTATIN CREAM 15 GM TOP ×2 (09:10→21:00)
[2018-05-12] MEDS: traZODone 50 MG TAB PEG (21:49)
[2018-05-12] MEDS: ATORVASTATIN 10 MG TAB PEG (21:53)
[2018-05-12] MEDS: LIDOCAINE 5% (LIDODERM) PATCH TD (21:53)
[2018-05-13] MEDS: LEVOTHYROXINE 88MCG TABLET (0.088 MG) PEG (06:16)
[2018-05-13] MEDS: PERCOCET 5MG/325MG TAB PEG ×4 (06:18→18:40)
[2018-05-13] MEDS: IPRATROPIUM 0.5MG/ALBUTEROL 2.5MG INH SOL UD 3ML (DUONEB)(J7620) INH ×2 (08:26→20:27)
[2018-05-13] MEDS: **NOTE PATIENT COMMENT** MISC XX (09:00)
[2018-05-13] MEDS: guaiFENesin 200 MG TAB PEG ×2 (09:03→21:43)
[2018-05-13] MEDS: PERPHENAZINE 2 MG TAB PEG ×2 (09:03→21:42)
[2018-05-13] MEDS: ASPIRIN 81 MG ENTERIC TAB PEG (09:03)
[2018-05-13] MEDS: APIXABAN 5 MG TAB (ELIQUIS) PEG ×2 (09:03→21:41)
[2018-05-13] MEDS: METOPROLOL TART 50 MG TAB PEG ×2 (09:04→21:51)
[2018-05-13] MEDS: levETIRAcetam ORAL SOLUTION 500 MG/5 ML UDC GT ×2 (09:04→21:43)
[2018-05-13] MEDS: POTASSIUM CHLORIDE 10% LIQ 20 MEQ/15 ML UDC PEG (09:04)
[2018-05-13] MEDS: LANSOPRAZOLE SUSPENSION 30 MG/10 ML ORAL SYRINGE (FIRST-LANSOPRAZOLE) PEG ×2 (09:08→21:43)
[2018-05-13] MEDS: IRBESARTAN 150 MG TAB PEG (09:08)
[2018-05-13] MEDS: SODIUM CHLORIDE NASAL 0.65% SPRAY BTL (OCEAN) ×3 (09:09→21:44)
[2018-05-13] MEDS: CHLORHEXIDINE ORAL RINSE 0.12%/15ML 120ML BOTTLE SSP ×2 (09:09→21:45)
[2018-05-13] MEDS: NYSTATIN 100,000 UNITS/GM TOPICAL PWD 15 GM TOP ×2 (09:09→21:45)
[2018-05-13] MEDS: FLUTICASONE PROP 0.05% NASAL SPRAY 16 GM (FLONASE) NARES ×2 (09:09→21:44)
[2018-05-13] MEDS: NYSTATIN CREAM 15 GM TOP ×2 (09:10→21:45)
[2018-05-13] MEDS: ATORVASTATIN 10 MG TAB PEG (21:42)
[2018-05-13] MEDS: traZODone 50 MG TAB PEG (21:42)
[2018-05-13] MEDS: LIDOCAINE 5% (LIDODERM) PATCH TD (21:46)
[2018-05-14] MEDS: PERCOCET 5MG/325MG TAB PEG ×4 (00:15→21:50)
[2018-05-14] MEDS: LEVOTHYROXINE 88MCG TABLET (0.088 MG) PEG (06:35)
[2018-05-14 08:22] LABS: BASO % 0.4 % (0.0-1.0); EOS # 0.4 10^3/uL (0.0-0.50); EOS % 6.1 % (0.0-3.0); HEMATOCRIT 30.9 % (36.0-47.0); HEMOGLOBIN 9.6 g/dl (12.0-15.5); IMMATURE GRANULOCYTE % 0.3 % (0-3.0); LYMPH # 1.7 10^3/uL (1.5-4.5); LYMPH % 23.8 % (24.0-44.0); MEAN CORPUSCULAR HEMOGLOBIN 26.4 pg (27.0-33.0); MEAN CORPUSCULAR HGB CONC 31.1 g/dl (32.0-36.5); MEAN CORPUSCULAR VOLUME 84.9 fl (80.0-96.0); MONO # 0.7 10^3/uL (0.0-0.8); MONO % 10.2 % (0.0-5.0); NEUTROPHILS # 4.3 10^3/uL (1.8-7.7); NEUTROPHILS % 59.2 % (36.0-66.0); PLATELET COUNT, AUTOMATED 436 10^3/uL (150-450); RED BLOOD COUNT 3.64 10^6/uL (4.00-5.40); WHITE BLOOD COUNT 7.3 10^3/uL (4.0-10.0)
[2018-05-14 08:45] LABS: ANION GAP 8 MEQ/L (8-16); BLOOD UREA NITROGEN 16 MG/DL (7-18); CALCIUM LEVEL 8.5 MG/DL (8.8-10.2); CARBON DIOXIDE LEVEL 28 MEQ/L (21-32); CHLORIDE LEVEL 99 MEQ/L (98-107); CREATININE FOR GFR 0.66 MG/DL (0.55-1.30); GLOMERULAR FILTRATION RATE > 60.0 (>39); GLUCOSE, FASTING 116 MG/DL (70-100); POTASSIUM SERUM 3.8 MEQ/L (3.5-5.1); SODIUM LEVEL 135 MEQ/L (136-145)
[2018-05-14] MEDS: FLUTICASONE PROP 0.05% NASAL SPRAY 16 GM (FLONASE) NARES ×2 (09:00→21:46)
[2018-05-14] MEDS: CHLORHEXIDINE ORAL RINSE 0.12%/15ML 120ML BOTTLE SSP ×2 (09:00→21:00)
[2018-05-14] MEDS: **NOTE PATIENT COMMENT** MISC XX (09:00)
[2018-05-14] MEDS: NYSTATIN CREAM 15 GM TOP ×2 (09:00→21:44)
[2018-05-14] MEDS: NYSTATIN 100,000 UNITS/GM TOPICAL PWD 15 GM TOP ×2 (09:00→21:46)
[2018-05-14] MEDS: SODIUM CHLORIDE NASAL 0.65% SPRAY BTL (OCEAN) ×3 (09:00→21:45)
[2018-05-14] MEDS: ASPIRIN 81 MG ENTERIC TAB PEG (09:00)
[2018-05-14] MEDS: LANSOPRAZOLE SUSPENSION 30 MG/10 ML ORAL SYRINGE (FIRST-LANSOPRAZOLE) PEG ×2 (09:59→21:41)
[2018-05-14] MEDS: levETIRAcetam ORAL SOLUTION 500 MG/5 ML UDC GT ×2 (10:00→21:40)
[2018-05-14] MEDS: POTASSIUM CHLORIDE 10% LIQ 20 MEQ/15 ML UDC PEG (10:01)
[2018-05-14] MEDS: IRBESARTAN 150 MG TAB PEG (10:02)
[2018-05-14] MEDS: APIXABAN 5 MG TAB (ELIQUIS) PEG ×2 (10:02→21:40)
[2018-05-14] MEDS: PERPHENAZINE 2 MG TAB PEG ×2 (10:02→21:43)
[2018-05-14] MEDS: METOPROLOL TART 50 MG TAB PEG ×2 (10:02→21:40)
[2018-05-14] MEDS: guaiFENesin 200 MG TAB PEG ×2 (10:03→21:41)
[2018-05-14] MEDS: IPRATROPIUM 0.5MG/ALBUTEROL 2.5MG INH SOL UD 3ML (DUONEB)(J7620) INH ×2 (11:20→19:58)
[2018-05-14 14:16] LABS: C REACTIVE PROTEIN QUANTITATIV 1.35 MG/DL (0.00-0.30)
[2018-05-14 14:28] LABS: ERYTHROCYTE SEDIMENTATION RATE 45 mm/hr (0-30)
[2018-05-14] MEDS: ATORVASTATIN 10 MG TAB PEG (21:42)
[2018-05-14] MEDS: LIDOCAINE 5% (LIDODERM) PATCH TD (21:44)
[2018-05-14] MEDS: traZODone 50 MG TAB PEG (21:50)
[2018-05-15] MEDS: LEVOTHYROXINE 88MCG TABLET (0.088 MG) PEG (06:25)
[2018-05-15] MEDS: PERCOCET 5MG/325MG TAB PEG ×3 (06:26→21:13)
[2018-05-15] MEDS: IPRATROPIUM 0.5MG/ALBUTEROL 2.5MG INH SOL UD 3ML (DUONEB)(J7620) INH ×2 (07:24→20:40)
[2018-05-15] MEDS: POTASSIUM CHLORIDE 10% LIQ 20 MEQ/15 ML UDC PEG (08:57)
[2018-05-15] MEDS: APIXABAN 5 MG TAB (ELIQUIS) PEG ×2 (08:57→21:04)
[2018-05-15] MEDS: levETIRAcetam ORAL SOLUTION 500 MG/5 ML UDC GT ×2 (08:57→21:02)
[2018-05-15] MEDS: LANSOPRAZOLE SUSPENSION 30 MG/10 ML ORAL SYRINGE (FIRST-LANSOPRAZOLE) PEG ×2 (08:57→21:02)
[2018-05-15] MEDS: guaiFENesin 200 MG TAB PEG ×2 (08:58→21:04)
[2018-05-15] MEDS: ASPIRIN 81 MG ENTERIC TAB PEG (08:58)
[2018-05-15] MEDS: PERPHENAZINE 2 MG TAB PEG ×2 (08:58→21:13)
[2018-05-15] MEDS: METOPROLOL TART 50 MG TAB PEG ×2 (08:58→21:05)
[2018-05-15] MEDS: IRBESARTAN 150 MG TAB PEG (08:58)
[2018-05-15] MEDS: NYSTATIN 100,000 UNITS/GM TOPICAL PWD 15 GM TOP ×2 (08:59→20:57)
[2018-05-15] MEDS: NYSTATIN CREAM 15 GM TOP ×2 (08:59→22:20)
[2018-05-15] MEDS: **NOTE PATIENT COMMENT** MISC XX (09:00)
[2018-05-15] MEDS: CHLORHEXIDINE ORAL RINSE 0.12%/15ML 120ML BOTTLE SSP ×2 (09:00→20:57)
[2018-05-15] MEDS: SODIUM CHLORIDE NASAL 0.65% SPRAY BTL (OCEAN) ×3 (09:00→20:56)
[2018-05-15] MEDS: FLUTICASONE PROP 0.05% NASAL SPRAY 16 GM (FLONASE) NARES ×2 (09:00→20:56)
[2018-05-15] MEDS: LIDOCAINE 5% (LIDODERM) PATCH TD (21:02)
[2018-05-15] MEDS: ATORVASTATIN 10 MG TAB PEG (21:04)
[2018-05-15] MEDS: traZODone 50 MG TAB PEG (21:05)
[2018-05-16] MEDS: LEVOTHYROXINE 88MCG TABLET (0.088 MG) PEG (06:16)
[2018-05-16] MEDS: PERCOCET 5MG/325MG TAB PEG ×3 (06:17→21:29)
[2018-05-16] MEDS: IPRATROPIUM 0.5MG/ALBUTEROL 2.5MG INH SOL UD 3ML (DUONEB)(J7620) INH ×2 (07:18→20:28)
[2018-05-16] MEDS: PERPHENAZINE 2 MG TAB PEG ×2 (08:26→21:28)
[2018-05-16] MEDS: levETIRAcetam ORAL SOLUTION 500 MG/5 ML UDC GT ×2 (08:26→21:27)
[2018-05-16] MEDS: LANSOPRAZOLE SUSPENSION 30 MG/10 ML ORAL SYRINGE (FIRST-LANSOPRAZOLE) PEG ×2 (08:26→21:27)
[2018-05-16] MEDS: METOPROLOL TART 50 MG TAB PEG ×2 (08:27→21:28)
[2018-05-16] MEDS: IRBESARTAN 150 MG TAB PEG (08:27)
[2018-05-16] MEDS: POTASSIUM CHLORIDE 10% LIQ 20 MEQ/15 ML UDC PEG (08:27)
[2018-05-16] MEDS: ASPIRIN 81 MG ENTERIC TAB PEG (08:27)
[2018-05-16] MEDS: APIXABAN 5 MG TAB (ELIQUIS) PEG ×2 (08:27→21:30)
[2018-05-16] MEDS: CHLORHEXIDINE ORAL RINSE 0.12%/15ML 120ML BOTTLE SSP ×2 (08:28→21:30)
[2018-05-16] MEDS: SODIUM CHLORIDE NASAL 0.65% SPRAY BTL (OCEAN) ×3 (08:28→21:30)
[2018-05-16] MEDS: guaiFENesin 200 MG TAB PEG ×2 (08:28→21:27)
[2018-05-16] MEDS: FLUTICASONE PROP 0.05% NASAL SPRAY 16 GM (FLONASE) NARES ×2 (08:28→21:30)
[2018-05-16] MEDS: NYSTATIN 100,000 UNITS/GM TOPICAL PWD 15 GM TOP ×2 (08:29→21:29)
[2018-05-16] MEDS: NYSTATIN CREAM 15 GM TOP ×2 (08:30→21:29)
[2018-05-16] MEDS: **NOTE PATIENT COMMENT** MISC XX (08:31)
[2018-05-16] MEDS: ATORVASTATIN 10 MG TAB PEG (21:27)
[2018-05-16] MEDS: traZODone 50 MG TAB PEG (21:27)
[2018-05-16] MEDS: LIDOCAINE 5% (LIDODERM) PATCH TD (21:29)
[2018-05-17] MEDS: LEVOTHYROXINE 88MCG TABLET (0.088 MG) PEG (06:23)
[2018-05-17] MEDS: PERCOCET 5MG/325MG TAB PEG ×3 (06:24→22:15)
[2018-05-17 06:49] LABS: BASO % 0.4 % (0.0-1.0); EOS # 0.4 10^3/uL (0.0-0.50); EOS % 5.7 % (0.0-3.0); HEMATOCRIT 30.5 % (36.0-47.0); HEMOGLOBIN 9.4 g/dl (12.0-15.5); IMMATURE GRANULOCYTE % 0.6 % (0-3.0); LYMPH # 1.5 10^3/uL (1.5-4.5); MEAN CORPUSCULAR HEMOGLOBIN 26.4 pg (27.0-33.0); MEAN CORPUSCULAR HGB CONC 30.8 g/dl (32.0-36.5); MEAN CORPUSCULAR VOLUME 85.7 fl (80.0-96.0); MONO # 0.7 10^3/uL (0.0-0.8); MONO % 10.1 % (0.0-5.0); NEUTROPHILS # 4.5 10^3/uL (1.8-7.7); NEUTROPHILS % 62.2 % (36.0-66.0); PLATELET COUNT, AUTOMATED 388 10^3/uL (150-450); RED BLOOD COUNT 3.56 10^6/uL (4.00-5.40); WHITE BLOOD COUNT 7.2 10^3/uL (4.0-10.0)
[2018-05-17 07:11] LABS: ANION GAP 6 MEQ/L (8-16); BLOOD UREA NITROGEN 14 MG/DL (7-18); C REACTIVE PROTEIN QUANTITATIV 0.95 MG/DL (0.00-0.30); CALCIUM LEVEL 8.3 MG/DL (8.8-10.2); CARBON DIOXIDE LEVEL 29 MEQ/L (21-32); CHLORIDE LEVEL 105 MEQ/L (98-107); CREATININE FOR GFR 0.65 MG/DL (0.55-1.30); GLOMERULAR FILTRATION RATE > 60.0 (>39); GLUCOSE, FASTING 108 MG/DL (70-100); POTASSIUM SERUM 3.6 MEQ/L (3.5-5.1); SODIUM LEVEL 140 MEQ/L (136-145)
[2018-05-17] MEDS: IPRATROPIUM 0.5MG/ALBUTEROL 2.5MG INH SOL UD 3ML (DUONEB)(J7620) INH ×2 (08:40→20:43)
[2018-05-17 08:48] LABS: ERYTHROCYTE SEDIMENTATION RATE 45 mm/hr (0-30)
[2018-05-17] MEDS: PERPHENAZINE 2 MG TAB PEG ×2 (08:53→22:05)
[2018-05-17] MEDS: LANSOPRAZOLE SUSPENSION 30 MG/10 ML ORAL SYRINGE (FIRST-LANSOPRAZOLE) PEG ×2 (08:53→22:10)
[2018-05-17] MEDS: guaiFENesin 200 MG TAB PEG ×2 (08:54→22:05)
[2018-05-17] MEDS: levETIRAcetam ORAL SOLUTION 500 MG/5 ML UDC GT ×2 (08:54→22:05)
[2018-05-17] MEDS: POTASSIUM CHLORIDE 10% LIQ 20 MEQ/15 ML UDC PEG (08:54)
[2018-05-17] MEDS: ASPIRIN 81 MG ENTERIC TAB PEG (08:55)
[2018-05-17] MEDS: IRBESARTAN 150 MG TAB PEG (08:55)
[2018-05-17] MEDS: APIXABAN 5 MG TAB (ELIQUIS) PEG ×2 (08:55→22:06)
[2018-05-17] MEDS: METOPROLOL TART 50 MG TAB PEG ×2 (08:55→22:10)
[2018-05-17] MEDS: CHLORHEXIDINE ORAL RINSE 0.12%/15ML 120ML BOTTLE SSP ×2 (08:56→22:13)
[2018-05-17] MEDS: SODIUM CHLORIDE NASAL 0.65% SPRAY BTL (OCEAN) ×3 (08:56→22:12)
[2018-05-17] MEDS: FLUTICASONE PROP 0.05% NASAL SPRAY 16 GM (FLONASE) NARES ×2 (08:56→22:12)
[2018-05-17] MEDS: NYSTATIN 100,000 UNITS/GM TOPICAL PWD 15 GM TOP ×2 (08:57→22:12)
[2018-05-17] MEDS: **NOTE PATIENT COMMENT** MISC XX (08:57)
[2018-05-17] MEDS: NYSTATIN CREAM 15 GM TOP ×2 (08:57→22:11)
[2018-05-17] MEDS: LIDOCAINE 5% (LIDODERM) PATCH TD (22:04)
[2018-05-17] MEDS: ATORVASTATIN 10 MG TAB PEG (22:05)
[2018-05-17] MEDS: traZODone 50 MG TAB PEG (22:15)
[2018-05-18] MEDS: LEVOTHYROXINE 88MCG TABLET (0.088 MG) PEG (06:41)
[2018-05-18] MEDS: PERCOCET 5MG/325MG TAB PEG ×2 (06:42→14:27)
[2018-05-18] MEDS: IPRATROPIUM 0.5MG/ALBUTEROL 2.5MG INH SOL UD 3ML (DUONEB)(J7620) INH (07:52)
[2018-05-18] MEDS: levETIRAcetam ORAL SOLUTION 500 MG/5 ML UDC GT (08:53)
[2018-05-18] MEDS: PERPHENAZINE 2 MG TAB PEG (08:54)
[2018-05-18] MEDS: POTASSIUM CHLORIDE 10% LIQ 20 MEQ/15 ML UDC PEG (08:54)
[2018-05-18] MEDS: IRBESARTAN 150 MG TAB PEG (08:54)
[2018-05-18] MEDS: guaiFENesin 200 MG TAB PEG (08:54)
[2018-05-18] MEDS: METOPROLOL TART 50 MG TAB PEG (08:55)
[2018-05-18] MEDS: ASPIRIN 81 MG ENTERIC TAB PEG (08:55)
[2018-05-18] MEDS: CHLORHEXIDINE ORAL RINSE 0.12%/15ML 120ML BOTTLE SSP (08:55)
[2018-05-18] MEDS: LANSOPRAZOLE SUSPENSION 30 MG/10 ML ORAL SYRINGE (FIRST-LANSOPRAZOLE) PEG (08:55)
[2018-05-18] MEDS: APIXABAN 5 MG TAB (ELIQUIS) PEG (08:55)
[2018-05-18] MEDS: SODIUM CHLORIDE NASAL 0.65% SPRAY BTL (OCEAN) (08:56)
[2018-05-18] MEDS: NYSTATIN CREAM 15 GM TOP (08:56)
[2018-05-18] MEDS: FLUTICASONE PROP 0.05% NASAL SPRAY 16 GM (FLONASE) NARES (08:56)
[2018-05-18] MEDS: NYSTATIN 100,000 UNITS/GM TOPICAL PWD 15 GM TOP (08:57)
[2018-05-18] MEDS: **NOTE PATIENT COMMENT** MISC XX (08:57)
== END 2018-05-18 16:04 | disposition home health service (06) | DRG 560 ==
LOC: M PM&R 05-12 14:14
DX: S82.852D Displaced trimalleolar fracture of left lower leg, subsequent encounter for closed fracture with routine healing (principal); E87.1 Hypo-osmolality and hyponatremia; F31.9 Bipolar disorder, unspecified; I10 Essential (primary) hypertension; E78.5 Hyperlipidemia, unspecified; K21.9 Gastro-esophageal reflux disease without esophagitis; M25.512 Pain in left shoulder; M17.0 Bilateral primary osteoarthritis of knee; K22.5 Diverticulum of esophagus, acquired; E03.9 Hypothyroidism, unspecified; E87.6 Hypokalemia; K22.2 Esophageal obstruction; Z86.711 Personal history of pulmonary embolism; Z86.718 Personal history of other venous thrombosis and embolism; Z90.49 Acquired absence of other specified parts of digestive tract; Z93.1 Gastrostomy status; Z90.710 Acquired absence of both cervix and uterus; Z79.82 Long term (current) use of aspirin; Z79.01 Long term (current) use of anticoagulants

== ENCOUNTER → 2018-05-14 | Outpatient (REF) | payer MEDICARE, OTHER | LOC: M LAB REF 16:46 | DX: S82.852D Displaced trimalleolar fracture of left lower leg, subsequent encounter for closed fracture with routine healing (principal) | CPT/HCPCS: 87186 ==

== ENCOUNTER → 2018-05-25 | Outpatient (REF) | payer MEDICARE, OTHER ==
[2018-05-28 14:19] LABS: LEVETIRACETAM (KEPPRA) 18.4 ug/mL (10.0-40.0)
== END ==
LOC: M LAB REF 16:38
DX: D53.9 Nutritional anemia, unspecified (principal); F31.70 Bipolar disorder, currently in remission, most recent episode unspecified
CPT/HCPCS: 84134

== ENCOUNTER → 2018-08-26 | Day surgery (SDC) | payer MEDICARE, OTHER ==
[~2018-08-26] VITALS: Ht 170.2 cm; Wt 63.5 kg
[~2018-08-26] MED LIST changes: +**Note Patient Comment XX; +ALB2.5NEB NEB; +ALBU83IN NEB; +AMLO10TA5 PO; +ASPI1TAB PO; +ASPI81TA85 PEG; +ASPI81TAEC PEG; +ASPI81TAEC PO; +ATOR1TAB19 PEG; +ATOR1TAB19 PO; +AUGM0.05 EXT; +AVAP150T31 PEG; +Acetaminophen Tab PO; +DILT30TA PEG; +DILT30TA PO; +ELIQ5TAB PEG; +ENOX40IN3 SC; -ETOMIDATE INJ 20MG/10ML VIAL As Ordered; +FIRS3SUS PEG; +FLON1SPR; +FLON1SPR NARES; +FLUTISP NARES; +GUAI20TA PEG; +IPRA0.00 INH; +IPRA0.00 NEB; +IRBE300T10 PEG; +IRBE300T10 PO; +KEPP1TAB PO; +LEVE500UDC GT; +LEVO-88 PEG; +LIDO1PAD TD; +LIDO5TD TD; +LOPR1TAB6 PEG; +LOVE0.8I SC; +LOVE1INJ SC; +METO50TA7 GT; +METO50TA7 PEG; +METO50TA7 PO; +MYCO15CR TOP; +NYAM10003 TOP; +NYST10CR TOP; +NYST1POW9 TOP; +OCEA0.654; +PERCOCET PEG; +PERI0.126 SSP; +PERI12LIQ SSP; +PERP2TA PEG; +PERP8TAB25 PEG; +POTA20EL PEG; +PRIL10PO2 PO; -PROPOFOL 1,000 MG/100 ML VIAL As Ordered; +SM 88TAB PO; -SUCCINYLCHOLINE INJ 200 MG/10 ML VIAL (J0330) As Ordered; +SULF1TAB93 PEG; +SYNT88TA2 PEG; +SYNT88TA2 PO; +TRAZ-186 PEG; +TRAZ25TA PEG; +TRAZ25TA PO; +TRAZO50TA PEG; +TUSS1SUS2 PO
[2018-08-26 11:12] VITALS: BP 118/56
== END | disposition home or self-care (01) ==
LOC: M SDC 10:27
PROVIDERS: ATTEND Otolaryngology
DX: K57.92 Diverticulitis of intestine, part unspecified, without perforation or abscess without bleeding (principal); Z53.09 Procedure and treatment not carried out because of other contraindication; Z79.01 Long term (current) use of anticoagulants

== ENCOUNTER 2018-09-02 12:45 | Day surgery (SDC) | payer MEDICARE, OTHER ==
[~2018-09-02] VITALS: Ht 170.2 cm; Wt 61.2 kg
[~2018-09-02 12:45] MED LIST changes: +CETACAINE SPRAY 5GM As Ordered ONE; +LIDOCAINE 2% INJ 100 MG/5 ML SDV (FOR ANES.) As Ordered ONE; +LR 1,000 ML IV ONE; +MIDAZOLAM INJ 2 MG/2 ML VIAL (J2250) As Ordered ONE; +ONDANSETRON 4MG/2ML VIAL (J2405) As Ordered ONE; +PROPOFOL 200 MG/20 ML VIAL As Ordered ONE; +ROCURONIUM BROMIDE 50 MG/5 ML VIAL As Ordered ONE; +dexameTHASONE 4 MG/ML 1ML VIAL (J1100) As Ordered ONE; +fentaNYL 100 MCG/2 ML INJECTION (J3010) As Ordered ONE
[2018-09-02] MEDS ORDERED: fentaNYL 100 MCG/2 ML INJECTION (J3010) As Ordered ONE (12:46)
[2018-09-02] MEDS ORDERED: SUGAMMADEX SODIUM 500 MG/5 ML VIAL (BRIDION) As Ordered ONE (12:58)
[2018-09-02] MEDS ORDERED: fentaNYL 100 MCG/2 ML INJECTION (J3010) IV PRN (13:45)
[2018-09-02] MEDS ORDERED: ONDANSETRON 4MG/2ML VIAL (J2405) IV PRN (13:45)
[2018-09-02] MEDS: LR 1,000 ML IV SCH ×2 (13:45→23:45)
[2018-09-02] MEDS: ACETAMINOPHEN/CODEINE 300MG/30MG 12.5 ML UDC GT PRN ×3 (13:50→23:06)
--- NOTE | 2018-09-02 14:52 | CR.PDOC ---
General Date of Consultation: Sep 02, 2018 Consultation CONSULTATION REPORT FOR: Dr Hernandez REASON FOR CONSULTATION: Medical Management ATTENDING: Dr. Min PCP: Dr Alonso HPI: 73year oldF POD O S/P Zenker Diverticulum Staphlux as per ENT, Dr Hernandez. The pt is seen in the PACU and is comfortable at this time. States pain is con trolled. No complaints at this time and is resting comfortably. Pre operative clearance from Dr Yadav 08/05/18 is noted and remains on her chart. Denies any fevers, weakness, fatigue, Headache, Chest Pain, Shortness of breath, cough, palpitations, abdominal pain, N/V/D or changes in bowel or bladder habits. Of note, The patient was previously admitted to [facility] 04/15 for ankle fracture. Patient was admitted to the acute rehabilitation unit (ARU) for rehab where she developed hypoxia/aspiration. The patient was then intubated and transferred to the intensive care unit (ICU) and eventually successfully extubated. Aspiration was felt related to Zenker Diverticulum and PEG tube was placed by GI on 04/28/2018 and determined patient will follow up for her Zenker's Diverticulum in the outpatient setting. The patient was transferred back to the ARU to continue rehab 05/03/2018. The patient then reported increasing shortness of breath, with diagnostic workup indicating lower extremity DVT and right-sided pulmonary embolism. The pt was placed on Eliquis anticoagulation. She finished her rehab at ARU and was discharged 05/18/18. PAST MEDICAL HISTORY: 1. Bipolar disorder. 2. Hypertension. 3. Dyslipidemia. 4. Hypothyroidism. 5. Acid reflux 6. Zenker's diverticulosis with h/o aspiration 7. LES stenosis/stricture. 8. 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 On Eliquis. PAST SURGICAL HISTORY: 1. EGD with esophageal stricture stretching (04/22/2018)- Dr. Rojo 2. ORIF left ankle (04/14/2018)- Dr. Dietz 3. Appendectomy. 4. Hysterectomy. 5. Peg tube 04/28/18 SOCHX: Resides in: [facility] Marital Status: Tobacco use: denies ETOH: denies FAMILY HISTORY: Both parents many years ago. Her mother had history of stroke. ROS: As noted in HPI, otherwise 11pt ROS of systems reviewed and unremarkable. PE: GEN: 73yoF, appears stated age. No acute distress. Alert and oriented x 3. Pleasant, interactive. HEENT: Normocephalic, atraumatic. No nystagmus appreciated. Sclera are nonicteric. Conjunctiva without injection. Nose midline. No facial asymmetry. Moist mucous membranes. CHEST: Regular rate and rhythm, +S1, +S2 LUNGS: Clear to auscultation bilaterally. No wheezes, rales, or rhonchi. Breathing appears symmetric and easy. Patient is speaking in full sentences. No accessory muscle use. ABD: Round, soft, non-tender, non-distended. +Bowel sounds throughout. No reboun d or guarding. EXT: Pulses 2+ bilaterally dorsalis pedis and radial. No lower extremity edema appreciated. Pt is moving UEs and LEs. SKIN: [place], dry, warm. Capillary refill <2sec. No rashes. NEURO: Alert and oriented x 3. Cranial nerves III-XII are intact. No focal deficits appreciated. No recent labs available. A&P: 73year oldF POD O S/P Zenker Diverticulum Staphlux as per Dr Hernandez. The pt is seen in the PACU and is comfortable at this time. States pain is controlled. No complaints at this time and is resting comfortably. Pre operative clearance from Dr Yadav 08/05/18 is noted and remains on her chart. The pt is reviewed and examined as per Dr Feliciano. 1. POD #O S/P Zenker Diverticulum Staphlux as per Dr David HENDERSON. Mgmt as per Dr David HENDERSON. Continue meds per G Tube as per ENT. Pain control as per ENT. IVF as per ENT 2. H/O Right lower lobe pulmonary embolism and left lower extremity deep vein thrombosis Eliquis 5 mg BID/ASA 81 mg daily on HOLD at this time. Restart when cleared as per Dr Jodie HENDERSON d/w Dr Hernandez who stated OK to resume 09/03/18. 3. Bipolar disorder: stable Continue Keppra at outpt dose. 4. Hypothyroidism: Continue Synthroid 88mcg daily. 5. Hypertension: Continue Cardizem 15 mg Q8 with hold parameter, Continue metoprolol 50 mg BID with hold parameter AVAPRO on HOLD likely restart in AM. BP 120/58. 6. DLP Lipitor 10 mg po daily. Vital Signs/I&O Vital Signs Date Time Temp Pulse Resp B/P (MAP) Pulse Ox O2 Delivery O2 Flow Rate FiO2 09/02/18 14:20 97.9 62 16 120/58 (78) 99 2 Laboratory Data Labs 24H pending. No recent labs available. Allergies Coded Allergies: No Known Allergies (Unverified , 08/19/18) Home Medications Scheduled Apixaban Base (Eliquis) 5 Mg Tab, 5 MG PEG BID, #60 Aspirin (Aspirin EC) 81 Mg Tabec, 81 MG PEG DAILY, #30 Atorvastatin Calcium (Atorvastatin Calcium) 10 Mg Tab, 10 MG PEG QHS, #30 Diltiazem HCl (Diltiazem HCl) 30 Mg Tab, 15 MG PEG Q8H, #90 Fluticasone Propionate (Fluticasone Propionate) 50 Mcg/Act Spr, 1 SPRAY NARES BID, #30 Guaifenesin (Guaifenesin) 200 Mg Tab, 400 MG PEG BID, #60 Irbesartan (Avapro) 150 Mg Tab, 300 MG PEG DAILY, #60 Levetiracetam (Keppra Oral Solution) 500 Mg/5 Ml Leelee, 500 MG GT BID, #60 Levothyroxine Sodium (Synthroid) 88 Mcg Tab, 88 MCG PEG DAILY@0600, #30 Metoprolol Tartrate (Metoprolol Tartrate) 50 Mg Tab, 50 MG GT BID, (Reported) Omeprazole Magnesium (Prilosec Powder) 10 Mg Pow, 10 MG PO DAILY, (Reported) Perphenazine (Perphenazine) 2 Mg Tab, 16 MG PEG QHS, #60 Perphenazine (Perphenazine) 2 Mg Tab, 8 MG PEG DAILY, #30 Sodium Chloride (Hyde Nasal Bard) 0.65 % Spr, 2 SPRAY NA TID, #30 Scheduled PRN Acetaminophen (Sm 8 Hour Pain Relief) 650 Mg Tab, 650 MG PO Q4H PRN for PAIN / FEVER, (Reported) Attending Note Attending Note I have both independently examined this patient as well as reviewed the H&P. I have discussed in detail with the PA the findings and plan of treatment as documented in the PA's note Liz Lund Sep 02, 2018 14:52 SURJIT ROWELL MD Sep 03, 2018 13:15
[2018-09-02 15:00] VITALS: BP 122/59
--- NOTE | 2018-09-02 15:16 | RO ---
DATE OF PROCEDURE: 09/02/2018 PREOPERATIVE DIAGNOSIS: Zenker's diverticulum. POSTOPERATIVE DIAGNOSIS: Zenker's diverticulum. OPERATIVE PROCEDURE: Endoscopic stapling Zenker's diverticulum. FINDINGS: There was a large Zenker's diverticulum posterior. SURGEON: Matt Hernandez MD MEDICAL TRANSCRIPTIONIST: ANESTHESIA: General. DESCRIPTION OF PROCEDURE: Under general anesthesia with the patient intubated, the patient was draped in the usual manner. I inserted the laryngoscope operating style. It was a Weerda laryngoscope. It was positioned into place. Once it was positioned into place, it was mounted on the arm to support the laryngoscope. After that was done then, I examined the area. The diverticulum was large and posterior and had nothing within it because the patient had been nothing by mouth (npo) for months. I identified the opening to the esophagus. I used a bougie to pass all the way into the stomach to make sure that was fine. Once this was done then and the laryngoscope was in the correct position, I put a suture at the wall between the esophagus and diverticulum on both sides. This was using the outer suture and silk suture. Then, the JARON endostapler 3 mm was used and I put the cartridge within the esophagus and then closed it. I then used the telescope to check its position and it was in good position. I did unleash it and then remove it and checked and reinserted it again in the same place. Once this was done then I engaged the stapler and advanced the stapler mechanism to clamp and cut the wall between the diverticulum and the esophagus. Once that was completed, then I released the stapler and removed it. There was about a 2 cm cut and everything looked very good. There was still another centimeter distally so I used a second cartridge and then inserted the stapler in position as I did before. I pulled on the sutures to make sure it was well engaged up into the stapler and then refired the stapler again. The stapler was then removed. I used the scissors to divide a small amount of mucosa inferiorly at the base of the wall. There was no bleeding. I examined the area again with the telescope, both the esophagus and the diverticulum area. Everything looked very good. I removed the sutures and reexamined the area. Everything looked very good. I then removed the laryngoscope and then advanced a smaller laryngoscope to examine the area and it looked superb. Patient tolerated the procedure well. No blood loss. The patient was extubated and transferred to the recovery room in excellent condition.
[2018-09-02 15:30] VITALS: BP 122/60
[2018-09-02 16:30] VITALS: BP 168/77
[2018-09-02 17:30] VITALS: BP 135/65
[2018-09-02 18:30] VITALS: BP 138/66
[2018-09-02] MEDS ORDERED: ATORVASTATIN 10 MG TAB PEG SCH (21:00)
[2018-09-02 22:00] VITALS: BP 115/60
[2018-09-02] MEDS: levETIRAcetam ORAL SOLUTION 500 MG/5 ML UDC GT SCH (23:06)
[2018-09-02] MEDS: METOPROLOL TART 50 MG TAB GT SCH (23:07)
[2018-09-02] MEDS ORDERED: PILL CRUSHER/CUTTER 1 EACH XX PRN (23:30)
[2018-09-03 06:00] VITALS: BP 147/73
[2018-09-03] MEDS ORDERED: LEVOTHYROXINE 88MCG TABLET (0.088 MG) PEG SCH (06:00)
[2018-09-03] MEDS: ACETAMINOPHEN/CODEINE 300MG/30MG 12.5 ML UDC GT PRN ×2 (06:24→12:51)
[2018-09-03 06:43] LABS: HEMATOCRIT 34.9 % (36.0-47.0); HEMOGLOBIN 11.6 g/dl (12.0-15.5); MEAN CORPUSCULAR HEMOGLOBIN 27.5 pg (27.0-33.0); MEAN CORPUSCULAR HGB CONC 33.2 g/dl (32.0-36.5); MEAN CORPUSCULAR VOLUME 82.7 fl (80.0-96.0); PLATELET COUNT, AUTOMATED 290 10^3/uL (150-450); RED BLOOD COUNT 4.22 10^6/uL (4.00-5.40); WHITE BLOOD COUNT 10.4 10^3/uL (4.0-10.0)
[2018-09-03 07:10] LABS: ALBUMIN 2.7 GM/DL (3.2-5.2); ALT/SGPT 19 U/L (12-78); BILIRUBIN,TOTAL 0.5 MG/DL (0.2-1.0); BLOOD UREA NITROGEN 14 MG/DL (7-18); CALCIUM LEVEL 8.5 MG/DL (8.8-10.2); CARBON DIOXIDE LEVEL 26 MEQ/L (21-32); CHLORIDE LEVEL 102 MEQ/L (98-107); CREATININE FOR GFR 0.86 MG/DL (0.55-1.30); GLOMERULAR FILTRATION RATE > 60.0 (>39); GLUCOSE, FASTING 136 MG/DL (70-100); MAGNESIUM LEVEL 2.1 MG/DL (1.8-2.4); POTASSIUM SERUM 3.7 MEQ/L (3.5-5.1); SODIUM LEVEL 136 MEQ/L (136-145)
[2018-09-03] MEDS: levETIRAcetam ORAL SOLUTION 500 MG/5 ML UDC GT SCH (09:31)
[2018-09-03] MEDS: LR 1,000 ML IV SCH (09:32)
[2018-09-03] MEDS: METOPROLOL TART 50 MG TAB GT SCH (09:32)
[2018-09-03 12:50] VITALS: BP 130/58
== END 2018-09-03 14:44 | disposition home or self-care (01) ==
LOC: M SDC 12:45 → M MS5PR 15:00 → M SDC 09-03 14:44
PROVIDERS: ATTEND Otolaryngology
DX: K22.5 Diverticulum of esophagus, acquired (principal); I10 Essential (primary) hypertension; I44.7 Left bundle-branch block, unspecified; E03.9 Hypothyroidism, unspecified; E11.9 Type 2 diabetes mellitus without complications; E78.00 Pure hypercholesterolemia, unspecified; F31.70 Bipolar disorder, currently in remission, most recent episode unspecified; K11.21 Acute sialoadenitis; K21.9 Gastro-esophageal reflux disease without esophagitis; R29.898 Other symptoms and signs involving the musculoskeletal system; R06.83 Snoring; Z79.899 Other long term (current) drug therapy; Z79.01 Long term (current) use of anticoagulants; Z79.82 Long term (current) use of aspirin; Z86.718 Personal history of other venous thrombosis and embolism; Z86.711 Personal history of pulmonary embolism; Z87.81 Personal history of (healed) traumatic fracture; Z90.710 Acquired absence of both cervix and uterus
CPT/HCPCS: 36415; 43180; 80053; 83735; 85027; J1100; J2250; J2405; J3010

== ENCOUNTER 2018-10-15 07:33 | Day surgery (SDC) | payer MEDICARE, OTHER ==
[~2018-10-15] VITALS: Ht 170.2 cm; Wt 59.0 kg
[~2018-10-15 07:33] MED LIST changes: -ASPI1TAB PO; +ASPI81CH33 PO; +ASPI81TA26 PO; +AVAP300T23 PO; +CARD40TA PO; -CETACAINE SPRAY 5GM As Ordered ONE; +ELIQ5TAB PO; +LEVE15SO GT; -LEVE500UDC GT; +LEVO88TA3 PO; -LR 1,000 ML IV ONE; -MIDAZOLAM INJ 2 MG/2 ML VIAL (J2250) As Ordered ONE; +NS 1,000 ML IV SCH; -ONDANSETRON 4MG/2ML VIAL (J2405) As Ordered ONE; +PERP16TA7 PO; +PERP8TAB25 PO; -ROCURONIUM BROMIDE 50 MG/5 ML VIAL As Ordered ONE; -dexameTHASONE 4 MG/ML 1ML VIAL (J1100) As Ordered ONE; -fentaNYL 100 MCG/2 ML INJECTION (J3010) As Ordered ONE
[2018-10-15] MEDS ORDERED: PROPOFOL 200 MG/20 ML VIAL As Ordered ONE (09:43)
--- NOTE | 2018-10-15 10:05 | ROOR ---
Patient Name: Alena Thomson Procedure Date: 10/15/2018 8:40 AM Date of : 1945 Age: 73 Room: [facility] Gender: Female Note Status: Finalized Procedure: Upper GI endoscopy Indications: Dysphagia, For therapy of esophageal stricture Providers: Joseph Rojo MD Referring MD: Sylvester Yadav MD Requesting Provider: Medicines: Monitored Anesthesia Care Complications: No immediate complications. Procedure: Pre-Anesthesia Assessment: - Prior to the procedure, a History and Physical was performed, and patient medications and allergies were reviewed. The patient is competent. The risks and benefits of the procedure and the sedation options and risks were discussed with the patient. All questions were answered and informed consent was obtained. Patient identification and proposed procedure were verified by the physician, the nurse and the anesthesiologist in the procedure room. Mental Status Examination: alert and oriented. Airway Examination: normal oropharyngeal airway and neck mobility. Respiratory Examination: clear to auscultation. CV Examination: normal. Prophylactic Antibiotics: The patient does not require prophylactic antibiotics. Prior Anticoagulants: The patient has taken no previous anticoagulant or antiplatelet agents. ASA Grade Assessment: III - A patient with severe systemic disease. After reviewing the risks and benefits, the patient was deemed in satisfactory condition to undergo the procedure. The anesthesia plan was to use monitored anesthesia care (MAC). Immediately prior to administration of medications, the patient was re-assessed for adequacy to receive sedatives. The heart rate, respiratory rate, oxygen saturations, blood pressure, adequacy of pulmonary ventilation, and response to care were monitored throughout the procedure. The physical status of the patient was re-assessed after the procedure. The Endoscope was introduced through the mouth, and advanced to the second part of duodenum. The upper GI endoscopy was accomplished without difficulty. The patient tolerated the procedure well. Findings: One benign-appearing, intrinsic severe (stenosis; an endoscope cannot pass) stenosis was found 36 cm from the incisors. This stenosis measured 8 mm (inner diameter). The stenosis was traversed after dilation. A TTS dilator was passed through the scope. Dilation with an 8-9-10 mm balloon and a 12-13.5-15 mm balloon dilator was performed to 15 mm. The dilation site was examined following endoscope reinsertion and showed mild mucosal disruption, complete resolution of luminal narrowing, no bleeding and no perforation. This was biopsied with a cold forceps for histology. Verification of patient identification for the specimen was done by the physician and nurse using the patient's name, date and medical record number. Estimated blood loss was minimal. A prior Zenkers diverticulum surgery was found in the proximal esophagus. This was characterized by healthy appearing mucosa. A medium-sized hiatal hernia was present. There was evidence of an intact gastrostomy with a patent G-tube present on the anterior wall of the gastric body. This was characterized by healthy appearing mucosa. The PEG required removal because it was no longer necessary. The PEG was removed percutaneously. Removal was easily accomplished. Patchy mild inflammation characterized by erosions, erythema and granularity was found in the gastric body and in the gastric antrum. Biopsies were taken with a cold forceps for Helicobacter pylori testing. No gross lesions were noted in the duodenal bulb and in the second portion of the duodenum. Impression: - Benign-appearing esophageal stenosis. Dilated. Biopsied. - A prior Zenkers diverticulum surgery anastomosis was found, characterized by healthy appearing mucosa. - Medium-sized hiatal hernia. - Intact gastrostomy with a patent G-tube present characterized by healthy appearing mucosa. - Gastritis. Biopsied. - No gross lesions in the duodenal bulb and in the second portion of the duodenum. - The PEG was removed percutaneously because it was no longer necessary. Recommendation: - Patient has a contact number available for emergencies. The signs and symptoms of potential delayed complications were discussed with the patient. Return to normal activities tomorrow. Written discharge instructions were provided to the patient. - NPO today, then advance as tolerated to advance diet as tolerated. - Continue present medications. - Resume aspirin today and Eliquis (apixaban) tomorrow at prior doses. Refer to primary physician for further adjustment of therapy. - Await pathology results. - Based on the biopsy results you will receive a phone call from GI clinic in 2-3 weeks to review the pathology results AND/OR your results will be faxed to your Primary care physician. - Use Protonix (pantoprazole) 40 mg PO twice daily - to be taken in morning (1/2 hour before breakfast) and at bedtime ( atleast 3 hours after last meal) for 8 weeks. - Return to primary care physician. Joseph oRjo MD Joseph Rojo MD 10/15/2018 10:04:58 AM Electronically signed by Joseph Rojo MD Number of Addenda: 0 Note Initiated On: 10/15/2018 8:40 AM Estimated Blood Loss: Estimated blood loss was minimal.
[2018-10-15 10:20] VITALS: BP 131/76
--- NOTE | 2018-10-15 10:55 | ROOR ---
Patient Name: Alena Thomson Procedure Date: 10/15/2018 8:41 AM Date of : 1945 Age: 73 Room: [facility] Gender: Female Note Status: Finalized Procedure: Colonoscopy Indications: Screening for colorectal malignant neoplasm Providers: Joseph Rojo MD Referring MD: Amado Yadav Md Requesting Provider: Medicines: Monitored Anesthesia Care Complications: No immediate complications. Procedure: Pre-Anesthesia Assessment: - Prior to the procedure, a History and Physical was performed, and patient medications and allergies were reviewed. The patient is competent. The risks and benefits of the procedure and the sedation options and risks were discussed with the patient. All questions were answered and informed consent was obtained. Patient identification and proposed procedure were verified by the physician, the nurse and the anesthesiologist in the procedure room. Mental Status Examination: alert and oriented. Airway Examination: normal oropharyngeal airway and neck mobility. Respiratory Examination: clear to auscultation. CV Examination: normal. Prophylactic Antibiotics: The patient does not require prophylactic antibiotics. Prior Anticoagulants: The patient has taken no previous anticoagulant or antiplatelet agents. ASA Grade Assessment: III - A patient with severe systemic disease. After reviewing the risks and benefits, the patient was deemed in satisfactory condition to undergo the procedure. The anesthesia plan was to use monitored anesthesia care (MAC). Immediately prior to administration of medications, the patient was re-assessed for adequacy to receive sedatives. The heart rate, respiratory rate, oxygen saturations, blood pressure, adequacy of pulmonary ventilation, and response to care were monitored throughout the procedure. The physical status of the patient was re-assessed after the procedure. The Colonoscope was introduced through the anus and advanced to the terminal ileum, with identification of the appendiceal orifice and IC valve. The colonoscopy was performed without difficulty. The patient tolerated the procedure well. The quality of the bowel preparation was good. The terminal ileum, ileocecal valve, appendiceal orifice, and rectum were photographed. Scope insertion time was 4 minutes. Scope withdrawal time was 10 minutes. The total duration of the procedure was 14 minutes. Findings: The perianal and digital rectal examinations were normal. The terminal ileum appeared normal. Two sessile polyps were found in the transverse colon. The polyps were 4 to 6 mm in size. These polyps were removed with a cold snare. Resection and retrieval were complete. Verification of patient identification for the specimen was done by the physician and nurse using the patient's name, date and medical record number. Estimated blood loss was minimal. A 6 mm polyp was found in the sigmoid colon. The polyp was sessile. The polyp was removed with a cold snare. Resection and retrieval were complete. Multiple small and large-mouthed diverticula were found from sigmoid to descending colon. There was no evidence of diverticular bleeding. Non-bleeding external and internal hemorrhoids were found during retroflexion. The hemorrhoids were large. Impression: - The examined portion of the ileum was normal. - Two 4 to 6 mm polyps in the transverse colon, removed with a cold snare. Resected and retrieved. - One 6 mm polyp in the sigmoid colon, removed with a cold snare. Resected and retrieved. - Moderate diverticulosis from sigmoid to descending colon. There was no evidence of diverticular bleeding. - Non-bleeding external and internal hemorrhoids. Recommendation: - Patient has a contact number available for emergencies. The signs and symptoms of potential delayed complications were discussed with the patient. Return to normal activities tomorrow. Written discharge instructions were provided to the patient. - Clear liquid diet today, then advance as tolerated to high fiber diet. - Continue present medications. - Await pathology results. - Repeat colonoscopy in 5-10 years for surveillance based on pathology results and depending on clinical and functional status. - Based on the biopsy results you will receive a phone call from GI clinic in 2-3 weeks to review the pathology results AND/OR your results will be faxed to your Primary care physician. - Return to primary care physician. Joseph Rojo MD Joseph Rojo MD 10/15/2018 10:54:56 AM Electronically signed by Joseph Rojo MD Number of Addenda: 0 Note Initiated On: 10/15/2018 8:41 AM Estimated Blood Loss: Estimated blood loss was minimal.
== END 2018-10-15 11:00 | disposition home or self-care (01) ==
LOC: M OPP 07:33
PROVIDERS: ATTEND Internal Medicine Gastroenterology
DX: Z12.11 Encounter for screening for malignant neoplasm of colon (principal); K64.8 Other hemorrhoids; D12.3 Benign neoplasm of transverse colon; D12.5 Benign neoplasm of sigmoid colon; K57.30 Diverticulosis of large intestine without perforation or abscess without bleeding; K22.2 Esophageal obstruction; Z98.890 Other specified postprocedural states; K44.9 Diaphragmatic hernia without obstruction or gangrene; K29.70 Gastritis, unspecified, without bleeding; K94.23 Gastrostomy malfunction; R13.10 Dysphagia, unspecified; Z79.82 Long term (current) use of aspirin; Z79.899 Other long term (current) drug therapy; Z80.0 Family history of malignant neoplasm of digestive organs; Z80.3 Family history of malignant neoplasm of breast

== ENCOUNTER 2021-01-11 12:10 | Inpatient (IN) | payer MEDICARE, OTHER ==
[~2021-01-11] VITALS: Ht 170.2 cm; Wt 88.6 kg
[~2021-01-11 12:10] MED LIST changes: -AMLO10TA5 PO; +AMLO1TAB25 PO; +ASPI-569 PEG; +ASPI-569 PO; -ASPI81TA85 PEG; +ASPI81TA86 PEG; -ASPI81TAEC PEG; -ASPI81TAEC PO; +BACTDSTA PEG; -IRBE300T10 PEG; -IRBE300T10 PO; +IRBE300T7 PEG; +IRBE300T7 PO; -LIDOCAINE 2% INJ 100 MG/5 ML SDV (FOR ANES.) As Ordered ONE; -NS 1,000 ML IV SCH; -PROPOFOL 200 MG/20 ML VIAL As Ordered ONE; -SULF1TAB93 PEG; +TRAZ1TAB10 PEG; +TRAZ1TAB11 PEG; +TRAZ1TAB11 PO; -TRAZ25TA PEG; -TRAZ25TA PO; -TRAZO50TA PEG
[2021-01-11] MEDS ORDERED: SYNT75TA PO (12:34)
[2021-01-11] MEDS ORDERED: LR 1,000 ML IV ONE (13:30)
--- NOTE | 2021-01-11 13:58 | REPVR ---
PROCEDURE INFORMATION: Exam: CT Head Without Contrast Exam date and time: 01/11/2021 1:42 PM Age: 75 years old Clinical indication: Other: Weakness TECHNIQUE: Imaging protocol: Computed tomography of the head without contrast. Radiation optimization: All CT scans at this facility use at least one of these dose optimization techniques: automated exposure control; mA and/or kV adjustment per patient size (includes targeted exams where dose is matched to clinical indication); or iterative reconstruction. COMPARISON: XA Esophagram Barium Swallow 04/21/2018 1:45 PM FINDINGS: There are no intra-or extra-axial hemorrhages or fluid collections. There is no mass effect or midline shift. Ventricles are nondilated for age. Probable mild chronic ischemic changes in the periventricular deep white matter. There are no focal parenchymal abnormalities. No calvarial fractures. IMPRESSION: No acute intracranial process. No intracranial hemorrhage. Electronically signed by: Amado Flor On 01/11/2021 13:57:56 PM
--- NOTE | 2021-01-11 14:22 | REP ---
INDICATION: TRAUMA. COMPARISON: Comparison chest x-ray May 07, 2018.. TECHNIQUE: Portable upright AP chest radiograph. FINDINGS: The lungs are symmetrically aerated and clear. The pleural angles are sharp. Heart is not enlarged. EKG monitoring electrodes overlie the chest. There is diffuse osteopenia. An old healed surgical neck fracture of the left humerus is seen. No acute fracture is seen. IMPRESSION: No active disease. <Electronically signed by Paolo Jones > 01/11/21 [id number]
[2021-01-11 14:46] LABS: BASO % 0.5 % (0.0-1.0); EOS # 0.1 10^3/uL (0.0-0.5); EOS % 1.7 % (0.0-3.0); HEMATOCRIT 41.8 % (36.0-47.0); LYMPH # 1.6 10^3/uL (1.5-5.0); LYMPH % 20.6 % (24.0-44.0); MEAN CORPUSCULAR HGB CONC 33.5 g/dl (32.0-36.5); MEAN CORPUSCULAR VOLUME 86.5 fl (80.0-96.0); MONO % 12.7 % (2.0-8.0); NEUTROPHILS # 4.9 10^3/uL (1.5-8.5); NEUTROPHILS % 64.2 % (36.0-66.0); RED BLOOD COUNT 4.83 10^6/uL (4.00-5.40); WHITE BLOOD COUNT 7.6 10^3/uL (4.0-10.0)
[2021-01-11 15:20] LABS: ALBUMIN 3.4 GM/DL (3.2-5.2); ALT/SGPT 30 U/L (12-78); BILIRUBIN,DIRECT 0.2 MG/DL (0.0-0.2); BILIRUBIN,TOTAL 0.7 MG/DL (0.2-1.0); CK-MB VALUE MASS 2.5 NG/ML (<3.6); CPK CREATINE PHOSPHOKINASE 246 U/L (26-192); MB/CK RELATIVE INDEX 1.02 (< OR =4); TOTAL PROTEIN 7.5 GM/DL (6.4-8.2); TROPONIN I < 0.02 NG/ML (< 0.10)
[2021-01-11] MEDS ORDERED: cefTRIAXone SOD 1 GM in D5W MINI-BAG PLUS 50 ML IV ONE (17:30)
[2021-01-11] MEDS ORDERED: APAP325T4 PO (18:05)
[2021-01-11] MEDS ORDERED: PRIL20TA2 PO (18:05)
[2021-01-11] MEDS ORDERED: FLUTISP (18:05)
[2021-01-11] MEDS ORDERED: PERP8TAB25 PO (18:05)
[2021-01-11] MEDS ORDERED: ACETAMINOPHEN 325 MG TAB PO PRN (18:15)
[2021-01-11] MEDS ORDERED: ONDANSETRON 4MG/2ML VIAL IV PRN (18:15)
--- NOTE | 2021-01-11 18:32 | HPEPDOC ---
General Date of Admission 01/11/21 Date of Service: Jan 11, 2021 Chief Complaint The patient is a 75-year-old female admitted with a reason for visit of FEVER. Source: Family Exam Limitations: Clinical conditions History of Present Illness Patient is 75 years old female with past medical history of bipolar disorder, hypertension, hyperlipidemia presented to hospital with altered mental status. According to her son who presented in the room patient developed altered mental status around 5 to 6 days ago and it became progressively worse. Patient was not able to communicate with me in the room. According to his son patient did not have any fever or chills, nausea, vomiting, diarrhea. In ER patient was found to have no leukocytosis, glucose level within normal limit, CT head negative for acute bleeding or stroke. Chest x-ray negative for acute disease. UA shows pyuria Home Medications Scheduled Aspirin (Aspirin) 81 Mg Tab.chew, 81 MG PO DAILY, (Reported) Atorvastatin Calcium (Atorvastatin Calcium) 10 Mg Tablet, 10 MG PO QHS, (Reported) Diltiazem HCl (Cardizem) 30 Mg Tablet, 15 MG PO Q8H, (Reported) Fluticasone Propionate (Fluticasone Propionate) 16 Gm [place].susp, 1 SPRAY NA BID, (Reported) Irbesartan (Avapro) 300 Mg Tablet, 300 MG PO DAILY, (Reported) Levetiracetam (Keppra) 500 Mg Tablet, 500 MG PO BID, (Reported) Levothyroxine Sodium (Synthroid) 75 Mcg Tablet, 75 MCG PO DAILY, (Reported) Metoprolol Tartrate (Metoprolol Tartrate) 50 Mg Tablet, 50 MG PO BID, (Reported) Omeprazole Magnesium (Prilosec Otc) 20 Mg Tablet.dr, 20 MG PO DAILY, (Reported) Perphenazine (Perphenazine) 8 Mg Tablet, 8 MG PO DAILY, (Reported) Perphenazine (Perphenazine) 8 Mg Tablet, 16 MG PO QHS, (Reported) Scheduled PRN Acetaminophen (Acetaminophen) 325 Mg Tablet, 325 MG PO Q6H PRN for PAIN LEVEL 1- 5, (Reported) Allergies Coded Allergies: No Known Allergies (Unverified , 10/05/18) Past Medical History Medical History 1. Bipolar disorder. 2. Hypertension. 3. Hyperlipidemia. 4. Gastroesophageal reflux disease with a Zenker's diverticulum and esophageal stenosis, status post dilatation. 5. Bilateral knee osteoarthritis. 6. 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 Surgical History 1. Appendectomy. 2. Hysterectomy. 3. G-tube placement during this admission. 4. Left ankle open reduction, internal fixation. Family History I personally reviewed family history and found not pertinent Social History * Smoker: Denies Alcohol: Denies Drugs: denies A-FIB/CHADSVASC A-FIB History Current/History of A-Fib/PAF?: No Current PO Anticoag Therapy: No Review of Systems Constitutional: Reports: Other (Unable to obtain due to lethargy) Eyes: Reports: Pain Physical Examination General Exam: Negative: Alert, Cooperative Eye Exam: Positive: PERRLA ENT Exam: Positive: Atraumatic Neck Exam: Positive: Supple; Negative: JVD Chest Exam: Positive: Clear to auscultation Heart Exam: Positive: Rate Normal Telemetry: Positive: No significant arrhythmia Abdomen Exam: Positive: Normal bowel sounds Extremity Exam: Negative: Cyanosis Skin Exam: Positive: Nl turgor and temperature Neuro Exam: Positive: Reflexes 2+ Psych Exam: Negative: Mental status NL Vital Signs Vital Signs Date Time Temp Pulse Resp B/P (MAP) Pulse Ox O2 Delivery O2 Flow Rate FiO2 01/11/21 18:00 86 97 01/11/21 15:49 129/59 (82) 01/11/21 12:30 16 Room Air 01/11/21 12:26 97.3 Laboratory Data Labs 24H Laboratory Tests 2 01/11/21 13:47: Immature Granulocyte % (Auto) 0.3, Neutrophils (%) (Auto) 64.2, Lymphocytes (%) (Auto) 20.6L, Monocytes (%) (Auto) 12.7H, Eosinophils (%) (Auto) 1.7, Basophils (%) (Auto) 0.5, Neutrophils # (Auto) 4.9, Lymphocytes # (Auto) 1.6, Monocytes # (Auto) 1.0H, Eosinophils # (Auto) 0.1, Basophils # (Auto) 0.0, Nucleated Red Blood Cells % (auto) 0.0, Lactic Acid Level 0.9, Total Bilirubin 0.7, Direct Bilirubin 0.2, Aspartate Amino Transf (AST/SGOT) 29, Alanine Aminotransferase (ALT/SGPT) 30, Alkaline Phosphatase 77, Total Creatine Kinase 246H, Creatine Kinase MB 2.5, Creatine Kinase MB Relative Index 1.02, Troponin I < 0.02, Total Protein 7.5, Albumin 3.4, Albumin/Globulin Ratio 0.8L, Thyroid Stimulating Hormone (TSH) 2.910 01/11/21 13:49: Urine Color YELLOW, Urine Appearance HAZY, Urine pH 6.0, Urine Specific [place] 1.006, Urine Protein NEGATIVE, Urine Glucose (UA) NEGATIVE, Urine Ketones NEGATIVE, Urine Blood NEGATIVE, Urine Nitrite POSITIVEH, Urine Bilirubin NEGATIVE, Urine Urobilinogen 0.2, Urine Leukocyte Esterase 2+H, Urine WBC (Auto) 10H, Urine RBC (Auto) 1, Urine Hyaline Casts (Auto) 0, Urine Bacteria (Auto) 2+H, Urine Squamous Epithelial Cells 0, Urine Mucus (Auto) SMALL, Urine Sperm (Auto) 01/11/21 16:09: POC Glucose (Misc Panel) 121H, POC Sodium (Misc Panel) 131L, POC Potassium (Misc Panel) 3.8, POC Chloride (Misc Panel) 93L, POC Total CO2 (Misc Panel) 24.0, POC Blood Urea Nitrogen (Misc Panel 14, POC Ionized Calcium (Misc Panel) 4.7, POC Creatinine (Misc Panel) 0.8, POC Hematocrit (Misc Panel) 39.0 01/11/21 17:50: CBC/BMP Laboratory Tests 01/11/21 13:47 Microbiology Microbiology 01/11/21 Urine Culture, Received Pending Assessment/Plan Patient is 75 years old female with past medical history of bipolar disorder, hypertension, hyperlipidemia presented to hospital with altered mental status. According to her son who presented in the room patient developed altered mental status around 5 to 6 days ago and it became progressively worse. Patient was not able to communicate with me in the room. According to his son patient did not have any fever or chills, nausea, vomiting, diarrhea. In ER patient was found to have no leukocytosis, glucose level within normal limit, CT head negative for acute bleeding or stroke. Chest x-ray negative for acute disease. UA shows pyuria Problems (1) Acute metabolic encephalopathy Status: Acute Problem Text: Most likely secondary to UTI UA shows pyuria Started ceftriaxone IV We will check level of Keppra Will do EEG to rule out seizure (2) UTI (urinary tract infection) Status: Acute Problem Text: See above (3) HTN (hypertension) Status: Chronic Problem Text: Continue home meds (4) Hypothyroid Status: Chronic Problem Text: Continue levothyroxine (5) Seizure disorder Status: Chronic Problem Text: Continue Keppra p.o. (6) Zenkers diverticulum Status: Chronic Problem Text: Aspiration precaution Plan / VTE VTE Prophylaxis Ordered?: Yes KATHIA HILARIO DO Jan 11, 2021 18:32
[2021-01-11 18:49] LABS: RSV AMPLIFICATION NEGATIVE (NEGATIVE)
[2021-01-11] MEDS ORDERED: levETIRAcetam 250MG TABLET (KEPPRA) PO SCH (21:00)
[2021-01-11 21:30] VITALS: BP 135/82
[2021-01-11] MEDS ORDERED: levETIRAcetam INJection 500 MG in D5W MINI-BAG PLUS 100 ML IV ONE (22:00)
[2021-01-11] MEDS: NS 1,000 ML IV SCH (22:09)
[2021-01-11] MEDS: ATORVASTATIN 10 MG TAB PO SCH (22:10)
[2021-01-11] MEDS: METOPROLOL TART 50 MG TAB PO SCH (22:10)
[2021-01-11] MEDS: FLUTICASONE PROP 0.05% NASAL SPRAY 16 GM (FLONASE) SCH (22:10)
[2021-01-12 06:00] VITALS: BP 149/78
[2021-01-12] MEDS: LEVOTHYROXINE 75MCG TABLET (0.075MG) PO SCH (06:01)
[2021-01-12 06:35] LABS: HEMATOCRIT 34.7 % (36.0-47.0); MEAN CORPUSCULAR HEMOGLOBIN 29.5 pg (27.0-33.0); MEAN CORPUSCULAR HGB CONC 33.7 g/dl (32.0-36.5); MEAN CORPUSCULAR VOLUME 87.4 fl (80.0-96.0); PLATELET COUNT, AUTOMATED 281 10^3/uL (150-450); RED BLOOD COUNT 3.97 10^6/uL (4.00-5.40); WHITE BLOOD COUNT 9.7 10^3/uL (4.0-10.0)
[2021-01-12 06:38] LABS: HEMOGLOBIN 11.7 g/dl (12.0-15.5)
[2021-01-12 07:03] LABS: ALBUMIN 2.9 GM/DL (3.2-5.2); ALT/SGPT 27 U/L (12-78); BILIRUBIN,TOTAL 0.6 MG/DL (0.2-1.0); BLOOD UREA NITROGEN 12 MG/DL (7-18); CALCIUM LEVEL 8.2 MG/DL (8.8-10.2); CARBON DIOXIDE LEVEL 26 MEQ/L (21-32); CHLORIDE LEVEL 102 MEQ/L (98-107); CREATININE FOR GFR 0.63 MG/DL (0.55-1.30); GLOMERULAR FILTRATION RATE > 60.0 (>39); GLUCOSE, FASTING 103 MG/DL (70-100); MAGNESIUM LEVEL 2.2 MG/DL (1.8-2.4); POTASSIUM SERUM 3.9 MEQ/L (3.5-5.1); SODIUM LEVEL 134 MEQ/L (136-145); TOTAL PROTEIN 6.2 GM/DL (6.4-8.2)
[2021-01-12] MEDS: ASPIRIN 81 MG CHEW TABLET PO SCH (09:00)
[2021-01-12] MEDS ORDERED: OMEPRAZOLE 20 MG CAP PO SCH (09:00)
[2021-01-12] MEDS: METOPROLOL TART 50 MG TAB PO SCH ×2 (09:00→22:49)
[2021-01-12] MEDS: FLUTICASONE PROP 0.05% NASAL SPRAY 16 GM (FLONASE) SCH ×2 (09:00→22:34)
[2021-01-12] MEDS: IRBESARTAN 150MG TAB PO SCH (09:00)
[2021-01-12 09:16] VITALS: BP 142/69
[2021-01-12] MEDS: ENOXAPARIN 40MG/0.4ML SYRINGE (J1650 PER 10MG) SC SCH (09:30)
[2021-01-12] MEDS: NS 1,000 ML IV SCH ×2 (09:31→15:47)
[2021-01-12] MEDS: levETIRAcetam INJection 500 MG in D5W 100 ML IV SCH ×2 (10:15→22:33)
--- NOTE | 2021-01-12 10:51 | ECGEPIP ---
[facility] - ED Test Date: 2021-01-11 Pat Name: MARTHA LIND Department: Room: - Gender: Female [employer]: LR : [id number] Requested By: ANUP Thompson Order Number: [id number] Reading MD: Linda Doyle Measurements Intervals [place] Rate: 69 P: 7 AK: 190 QRS: -38 QRSD: 136 T: 117 QT: 430 QTc: 460 Interpretive Statements Normal sinus rhythm Left axis deviation Left bundle branch block increased rate 04/14/18 Electronically Signed on 01-12-2021 10:51:20 EDT by Linda Doyle
--- NOTE | 2021-01-12 12:15 | IPNPDOC ---
Text Note Date of Service The patient was seen on 01/12/21. NOTE Subjective: In the morning when I saw the patient she answered my question then she stopped and started to stare on the wall became unresponsive verbally Objective: GENERAL APPEARANCE: Verbally unresponsive female HEENT: no scleral icterus, no JVD, EOMI CARDIOVASCULAR: S1S2 LUNGS: CTA ABDOMEN: soft & not tender w palpitation MUSCULOSKELETAL: no cyanosis, no swelling INTEGUMENT: no generalized pallor NEUROLOGICAL: moves four limbs, no nuchal rigidity Assessment/Plan Patient is 75 years old female with past medical history of bipolar disorder, hypertension, hyperlipidemia presented to hospital with altered mental status. According to her son who presented in the room patient developed altered mental status around 5 to 6 days ago and it became progressively worse. Patient was not able to communicate with me in the room. According to his son patient did not have any fever or chills, nausea, vomiting, diarrhea. In ER patient was found to have no leukocytosis, glucose level within normal limit, CT head negative for acute bleeding or stroke. Chest x-ray negative for acute disease. UA shows pyuria Problems (1) Acute metabolic encephalopathy Most likely secondary to UTI. There is concern for noncompliance to Keppra and episodes of unresponsiveness could be attributed to seizure-like activity UA shows pyuria Continue ceftriaxone IV Await level of Keppra. Started Keppra IV Await EEG to rule out seizure We will proceed with brain MRI (2) UTI (urinary tract infection) See above (3) HTN (hypertension) Continue home meds (4) Hypothyroid Continue levothyroxine (5) Seizure disorder Continue Keppra IV (6) Zenkers diverticulum Aspiration precaution VS,Fishbone, I+O VS, Fishbone, I+O Laboratory Tests 01/11/21 13:47 01/12/21 06:06 Vital Signs Date Time Temp Pulse Resp B/P (MAP) Pulse Ox O2 Delivery O2 Flow Rate FiO2 01/12/21 09:16 105 142/69 (93) 01/12/21 06:00 97.5 16 96 Room Air I&O- Last 24 Hours up to 6 AM 01/12/21 06:00 Intake Total 1850 ml Output Total 600 ml Balance 1250 ml KATHIA HILARIO DO Jan 12, 2021 12:15
[2021-01-12 14:00] VITALS: BP 144/70
[2021-01-12] MEDS ORDERED: DIAPER RELIEF PASTE (DESITIN) 60GM TOP SCH (17:05)
[2021-01-12] MEDS: DIAPER RELIEF PASTE (DESITIN) 60GM TOP SCH (17:35)
[2021-01-12] MEDS: D5W/0.9% SODIUM CHLORIDE 1,000 ML IV SCH (17:38)
[2021-01-12] MEDS: cefTRIAXone SOD 1 GM in D5W MINI-BAG PLUS 50 ML IV SCH (17:38)
[2021-01-12] MEDS ORDERED: ACETAMINOPHEN *IV* 1,000 MG in IV 1 EA IV ONE (18:10)
[2021-01-12] MEDS: ACETAMINOPHEN 650 MG SUPP PR PRN (18:56)
[2021-01-12 22:00] VITALS: BP 130/68
[2021-01-12] MEDS: ATORVASTATIN 10 MG TAB PO SCH (22:48)
[2021-01-12] MEDS: RAMELTEON 8 MG TAB (ROZEREM) PO SCH (22:50)
[2021-01-13] VITALS (8 sets, daily range): BP systolic 110–145; BP diastolic 55–76
[2021-01-13] MEDS: D5W/0.9% SODIUM CHLORIDE 1,000 ML IV SCH ×2 (03:09→11:27)
[2021-01-13] MEDS: ACETAMINOPHEN 650 MG SUPP PR PRN (05:53)
[2021-01-13] MEDS: LEVOTHYROXINE 75MCG TABLET (0.075MG) PO SCH (06:00)
[2021-01-13] MEDS ORDERED: levETIRAcetam INJection 500 MG in D5W MINI-BAG PLUS 100 ML IV SCH (06:00)
[2021-01-13] MEDS: LEVOTHYROXINE 100MCG (0.1MG) VIAL IV SCH (08:19)
[2021-01-13] MEDS: ENOXAPARIN 40MG/0.4ML SYRINGE (J1650 PER 10MG) SC SCH (08:20)
[2021-01-13] MEDS: PANTOPRAZOLE 40MG VIAL (C9113 PER 1) IV SCH (08:20)
[2021-01-13] MEDS: FLUTICASONE PROP 0.05% NASAL SPRAY 16 GM (FLONASE) SCH ×2 (08:21→20:46)
[2021-01-13] MEDS: ASPIRIN 81 MG CHEW TABLET PO SCH (08:21)
[2021-01-13] MEDS: IRBESARTAN 150MG TAB PO SCH (08:21)
[2021-01-13] MEDS: DIAPER RELIEF PASTE (DESITIN) 60GM TOP SCH ×2 (08:21→20:46)
[2021-01-13 08:49] LABS: BASO % 0.3 % (0.0-1.0); EOS % 0.2 % (0.0-3.0); HEMATOCRIT 39.3 % (36.0-47.0); HEMOGLOBIN 12.8 g/dl (12.0-15.5); LYMPH # 1.1 10^3/uL (1.5-5.0); LYMPH % 8.5 % (24.0-44.0); MEAN CORPUSCULAR HEMOGLOBIN 29.2 pg (27.0-33.0); MEAN CORPUSCULAR HGB CONC 32.6 g/dl (32.0-36.5); MEAN CORPUSCULAR VOLUME 89.7 fl (80.0-96.0); MONO # 1.1 10^3/uL (0.0-0.8); MONO % 8.6 % (2.0-8.0); NEUTROPHILS # 10.2 10^3/uL (1.5-8.5); NEUTROPHILS % 82.1 % (36.0-66.0); PLATELET COUNT, AUTOMATED 287 10^3/uL (150-450); RED BLOOD COUNT 4.38 10^6/uL (4.00-5.40); WHITE BLOOD COUNT 12.5 10^3/uL (4.0-10.0)
[2021-01-13 09:05] LABS: BLOOD UREA NITROGEN 12 MG/DL (7-18); CALCIUM LEVEL 8.6 MG/DL (8.8-10.2); CARBON DIOXIDE LEVEL 20 MEQ/L (21-32); CHLORIDE LEVEL 108 MEQ/L (98-107); GLOMERULAR FILTRATION RATE > 60.0 (>39); GLUCOSE, FASTING 130 MG/DL (70-100); MAGNESIUM LEVEL 2.2 MG/DL (1.8-2.4); POTASSIUM SERUM 3.8 MEQ/L (3.5-5.1); SODIUM LEVEL 139 MEQ/L (136-145)
--- NOTE | 2021-01-13 11:03 | REPVR ---
PROCEDURE INFORMATION: Exam: MR Head Without Contrast Exam date and time: 01/13/2021 9:18 AM Age: 75 years old Clinical indication: Altered mental status/memory loss; Confusion or disorientation; Patient HX: UTI TECHNIQUE: Imaging protocol: MR of the head without contrast. COMPARISON: CT Head without contrast 01/11/2021 1:33 PM FINDINGS: Limitations: Study is degraded by patient motion artifact. Brain: Mild generalized cerebral volume loss. There are a moderate number of scattered foci of white matter T2 hyperintensity, nonspecific but commonly secondary to chronic small vessel ischemic change. No acute ischemic infarction. Mildly increased diffusion-weighted signal within the bilateral cerebral hemispheric white matter and in the ventral kindra bilaterally is favored secondary to underlying intrinsic motion artifact. No acute intracranial hemorrhage. Cerebral ventricles: No ventriculomegaly. Bones/joints: Unremarkable. Paranasal sinuses: Normal as visualized. Mastoid air cells: No mastoid effusion. Orbital cavity: Bilateral lens replacements. Soft tissues: Unremarkable. IMPRESSION: No acute intracranial abnormality allowing for moderate patient motion artifact. Electronically signed by: Arden España On 01/13/2021 11:02:44 AM
[2021-01-13] MEDS: levETIRAcetam INJection 500 MG in D5W MINI-BAG PLUS 100 ML IV SCH ×2 (11:27→21:11)
--- NOTE | 2021-01-13 11:54 | IPNPDOC ---
Text Note Date of Service The patient was seen on 01/13/21. NOTE Subjective: In the morning when I saw the patient was talking nonsense about aliens and government conspiracy, patient was laughing inappropriately. Patient had low-grade fever in the morning Objective: GENERAL APPEARANCE: In moderate distress HEENT: no scleral icterus, no JVD, EOMI CARDIOVASCULAR: S1S2 LUNGS: CTA ABDOMEN: soft & not tender w palpitation MUSCULOSKELETAL: no cyanosis, no swelling INTEGUMENT: no generalized pallor NEUROLOGICAL: moves four limbs, no nuchal rigidity Assessment/Plan Patient is 75 years old female with past medical history of bipolar disorder, hypertension, hyperlipidemia presented to hospital with altered mental status. According to her son who presented in the room patient developed altered mental status around 5 to 6 days ago and it became progressively worse. Patient was not able to communicate with me in the room. According to his son patient did not have any fever or chills, nausea, vomiting, diarrhea. In ER patient was found to have no leukocytosis, glucose level within normal limit, CT head negative for acute bleeding or stroke. Chest x-ray negative for acute disease. UA shows pyuria Problems (1) Acute metabolic encephalopathy/acute psychosis/bipolar disorder Most likely secondary to UTI. There is concern for noncompliance to Keppra and episodes of unresponsiveness could be attributed to seizure-like activity. There is also concern for derrell phase of bipolar disorder. UA shows pyuria, UA positive for Klebsiella species Continue ceftriaxone IV Await level of Keppra. Continue Keppra IV Await EEG to rule out seizure brain MRI negative for acute intracranial abnormalities Appreciate/agree with psychiatrist consult (2) UTI (urinary tract infection) See above (3) HTN (hypertension) Continue home meds (4) Hypothyroid Continue levothyroxine (5) Seizure disorder Continue Keppra IV however he son denied that patient had history of seizures (6) Zenkers diverticulum Aspiration precaution VS,Fishbone, I+O VS, Fishbone, I+O Laboratory Tests 01/13/21 08:25 Vital Signs Date Time Temp Pulse Resp B/P (MAP) Pulse Ox O2 Delivery O2 Flow Rate FiO2 01/13/21 08:20 99.8 01/13/21 06:00 98 20 120/76 (91) 99 Room Air I&O- Last 24 Hours up to 6 AM 01/13/21 06:00 Intake Total 1505 ml Output Total 1050 ml Balance 455 ml KATHIA HILARIO DO Jan 13, 2021 11:54
[2021-01-13] MEDS ORDERED: D5W/0.2% SODIUM CHLORIDE 1,000 ML IV SCH (11:55)
[2021-01-13] MEDS ORDERED: LORazepam 2 MG/ML VIAL IV STA (13:53)
[2021-01-13] MEDS ORDERED: HALOPERIDOL 5MG/ML VIAL (J1630 PER 1) IV ONE (13:55)
[2021-01-13] MEDS ORDERED: METOPROLOL 5 MG/5 ML VIAL IV PRN (13:55)
[2021-01-13] MEDS ORDERED: LORazepam 2 MG/ML VIAL As Ordered ONE (14:32)
[2021-01-13] MEDS ORDERED: PERPHENAZINE 2 MG TAB PO ONE (15:00)
[2021-01-13] MEDS: cefTRIAXone SOD 1 GM in D5W MINI-BAG PLUS 50 ML IV SCH (18:17)
[2021-01-13] MEDS: D5W/0.45% SODIUM CHLORIDE 1,000 ML IV SCH (18:17)
[2021-01-13] MEDS: ATORVASTATIN 10 MG TAB PO SCH (20:10)
[2021-01-13] MEDS: RAMELTEON 8 MG TAB (ROZEREM) PO SCH (20:10)
[2021-01-13] MEDS: PERPHENAZINE 2 MG TAB PO SCH (20:11)
[2021-01-14] VITALS: BP 121/57
[2021-01-14] MEDS: D5W/0.45% SODIUM CHLORIDE 1,000 ML IV SCH ×3 (03:06→20:12)
[2021-01-14 04:00] VITALS: BP 119/57
[2021-01-14] MEDS: LEVOTHYROXINE 100MCG (0.1MG) VIAL IV SCH (05:14)
[2021-01-14 05:17] LABS: ALBUMIN 2.3 GM/DL (3.2-5.2); ALT/SGPT 26 U/L (12-78); BILIRUBIN,TOTAL 0.4 MG/DL (0.2-1.0); BLOOD UREA NITROGEN 6 MG/DL (7-18); CALCIUM LEVEL 7.9 MG/DL (8.8-10.2); CARBON DIOXIDE LEVEL 26 MEQ/L (21-32); CHLORIDE LEVEL 105 MEQ/L (98-107); CREATININE FOR GFR 0.39 MG/DL (0.55-1.30); GLOMERULAR FILTRATION RATE > 60.0 (>39); GLUCOSE, FASTING 116 MG/DL (70-100); POTASSIUM SERUM 3.2 MEQ/L (3.5-5.1); SODIUM LEVEL 138 MEQ/L (136-145); TOTAL PROTEIN 5.3 GM/DL (6.4-8.2)
[2021-01-14 05:18] LABS: BASO # 0.1 10^3/uL (0.0-0.2); BASO % 0.7 % (0.0-1.0); EOS # 0.2 10^3/uL (0.0-0.5); EOS % 2.9 % (0.0-3.0); HEMATOCRIT 32.9 % (36.0-47.0); HEMOGLOBIN 10.9 g/dl (12.0-15.5); LYMPH # 1.4 10^3/uL (1.5-5.0); LYMPH % 18.3 % (24.0-44.0); MEAN CORPUSCULAR HEMOGLOBIN 29.2 pg (27.0-33.0); MEAN CORPUSCULAR HGB CONC 33.1 g/dl (32.0-36.5); MEAN CORPUSCULAR VOLUME 88.2 fl (80.0-96.0); MONO # 0.9 10^3/uL (0.0-0.8); MONO % 11.7 % (2.0-8.0); NEUTROPHILS % 66.3 % (36.0-66.0); PLATELET COUNT, AUTOMATED 234 10^3/uL (150-450); RED BLOOD COUNT 3.73 10^6/uL (4.00-5.40); WHITE BLOOD COUNT 7.6 10^3/uL (4.0-10.0)
[2021-01-14 08:00] VITALS: BP 102/51
[2021-01-14] MEDS: ASPIRIN 81 MG CHEW TABLET PO SCH (08:28)
[2021-01-14] MEDS: IRBESARTAN 150MG TAB PO SCH (08:28)
[2021-01-14] MEDS: ENOXAPARIN 40MG/0.4ML SYRINGE (J1650 PER 10MG) SC SCH (08:29)
[2021-01-14] MEDS: PERPHENAZINE 2 MG TAB PO SCH ×2 (08:29→21:00)
[2021-01-14] MEDS: PANTOPRAZOLE 40MG VIAL (C9113 PER 1) IV SCH (08:32)
[2021-01-14] MEDS: DIAPER RELIEF PASTE (DESITIN) 60GM TOP SCH ×2 (08:33→21:13)
[2021-01-14] MEDS: FLUTICASONE PROP 0.05% NASAL SPRAY 16 GM (FLONASE) SCH ×2 (08:33→21:13)
[2021-01-14] MEDS: levETIRAcetam INJection 500 MG in D5W MINI-BAG PLUS 100 ML IV SCH ×2 (10:40→21:14)
--- NOTE | 2021-01-14 11:06 | IPNPDOC ---
Text Note Date of Service The patient was seen on 01/14/21. NOTE Subjective: In the morning patient unresponsive staring on the ceiling. Elizabeth cárdenas developed verbal unresponsiveness yesterday night. Objective: GENERAL APPEARANCE: Unresponsive HEENT: no scleral icterus, no JVD, EOMI CARDIOVASCULAR: S1S2 LUNGS: CTA ABDOMEN: soft & not tender w palpitation MUSCULOSKELETAL: no cyanosis, no swelling INTEGUMENT: no generalized pallor NEUROLOGICAL: moves four limbs, no nuchal rigidity Assessment/Plan Patient is 75 years old female with past medical history of bipolar disorder, hypertension, hyperlipidemia presented to hospital with altered mental status. According to her son who presented in the room patient developed altered mental status around 5 to 6 days ago and it became progressively worse. Patient was not able to communicate with me in the room. According to his son patient did not have any fever or chills, nausea, vomiting, diarrhea. In ER patient was found to have no leukocytosis, glucose level within normal limit, CT head negative for acute bleeding or stroke. Chest x-ray negative for acute disease. UA shows pyuria Problems (1) Acute metabolic encephalopathy/acute psychosis/bipolar disorder/delirium Most likely secondary to UTI. There is concern for noncompliance to Keppra and episodes of unresponsiveness could be attributed to seizure-like activity. There is also concern for derrell phase of bipolar disorder. Also there is possibility of patient developed hospital induced delirium. Unresponsiveness today most likely attributed to lorazepam IV yesterday. UA shows pyuria, UA positive for Klebsiella species Continue ceftriaxone IV Await level of Keppra. Continue Keppra IV Await EEG to rule out seizure brain MRI negative for acute intracranial abnormalities I talked with Dr. Lawrence yesterday she recommended to start Haldol IV and lorazepam IV. (2) UTI (urinary tract infection) See above (3) HTN (hypertension) Continue home meds (4) Hypothyroid Continue levothyroxine (5) Seizure disorder Continue Keppra IV however he son denied that patient had history of seizures (6) Zenkers diverticulum Aspiration precaution VS,Fishbone, I+O VS, Fishbone, I+O Laboratory Tests 01/14/21 04:23 01/14/21 05:09 Vital Signs Date Time Temp Pulse Resp B/P (MAP) Pulse Ox O2 Delivery O2 Flow Rate FiO2 01/14/21 08:00 96.8 74 16 102/51 (75) 99 Room Air I&O- Last 24 Hours up to 6 AM 01/14/21 06:00 Intake Total 1220 ml Output Total 1375 ml Balance -155 ml KATHIA HILARIO DO Jan 14, 2021 11:06
[2021-01-14 11:41] VITALS: BP 129/70
[2021-01-14] MEDS ORDERED: KCL 10MEQ/100ML SWI (KRUN) 10 MEQ in IV 1 EA IV ONE (12:00)
[2021-01-14 16:00] VITALS: BP 133/62
[2021-01-14] MEDS: cefTRIAXone SOD 1 GM in D5W MINI-BAG PLUS 50 ML IV SCH (17:56)
[2021-01-14] MEDS: RAMELTEON 8 MG TAB (ROZEREM) PO SCH (21:00)
[2021-01-14] MEDS: ATORVASTATIN 10 MG TAB PO SCH (21:00)
[2021-01-14 22:00] VITALS: BP 137/71
[2021-01-15] MEDS: D5W/0.45% SODIUM CHLORIDE 1,000 ML IV SCH ×3 (04:17→15:41)
[2021-01-15 06:00] VITALS: BP 138/72
[2021-01-15 06:02] LABS: BASO % 0.5 % (0.0-1.0); EOS # 0.2 10^3/uL (0.0-0.5); EOS % 2.8 % (0.0-3.0); HEMATOCRIT 35.1 % (36.0-47.0); HEMOGLOBIN 11.7 g/dl (12.0-15.5); LYMPH # 1.2 10^3/uL (1.5-5.0); LYMPH % 19.4 % (24.0-44.0); MEAN CORPUSCULAR HGB CONC 33.3 g/dl (32.0-36.5); MEAN CORPUSCULAR VOLUME 86.9 fl (80.0-96.0); MONO # 0.7 10^3/uL (0.0-0.8); MONO % 11.4 % (2.0-8.0); NEUTROPHILS # 3.9 10^3/uL (1.5-8.5); NEUTROPHILS % 65.6 % (36.0-66.0); PLATELET COUNT, AUTOMATED 284 10^3/uL (150-450); RED BLOOD COUNT 4.04 10^6/uL (4.00-5.40)
[2021-01-15] MEDS: LEVOTHYROXINE 100MCG (0.1MG) VIAL IV SCH (06:05)
[2021-01-15 06:42] LABS: ALBUMIN 2.4 GM/DL (3.2-5.2); ALT/SGPT 34 U/L (12-78); BILIRUBIN,TOTAL 0.4 MG/DL (0.2-1.0); BLOOD UREA NITROGEN 2 MG/DL (7-18); CALCIUM LEVEL 7.9 MG/DL (8.8-10.2); CARBON DIOXIDE LEVEL 31 MEQ/L (21-32); CHLORIDE LEVEL 102 MEQ/L (98-107); CREATININE FOR GFR 0.45 MG/DL (0.55-1.30); GLOMERULAR FILTRATION RATE > 60.0 (>39); GLUCOSE, FASTING 123 MG/DL (70-100); MAGNESIUM LEVEL 2.1 MG/DL (1.8-2.4); POTASSIUM SERUM 2.8 MEQ/L (3.5-5.1); SODIUM LEVEL 139 MEQ/L (136-145); TOTAL PROTEIN 5.6 GM/DL (6.4-8.2)
[2021-01-15] MEDS ORDERED: POTASSIUM CHLORIDE 10% LIQ 20 MEQ/15 ML UDC PO ONE ×2 (07:50→15:15)
--- NOTE | 2021-01-15 07:57 | MHCR ---
[facility] CONSULTATION DATE: 01/14/2021 HISTORY OF PRESENT ILLNESS: The patient was seen via telepsychiatry due to the current Coronavirus crisis. I was asked to see this 75-year-old woman who apparently has a history of bipolar disorder on perphenazine 8 mg every morning and 16 mg nightly but the patient was admitted due to mental status changes. The patient's son stated that for about 5-6 days prior to admission she had a change in her behavior. The patient was diagnosed with a urinary tract infection and has been on antibiotics for a few days now. The patient apparently, when she came into the hospital, was almost catatonic, staring at the escobar, but then when I was consulted yesterday I was told that the patient was now talking nonstop about aliens and government conspiracy and laughing inappropriately, and so I did consider that the patient might be having a catatonic episode and I recommended that she be treated with Ativan 1 mg and Haldol 2 mg which was to be given intramuscular (IM) because the patient has been refusing all her medications. The patient had not been on her perphenazine since admission and so I thought it was possible that this is why we were seeing this change in her behavior, and she appeared to be hallucinating about aliens and government conspiracies. Of course, the possibility is that the patient is having a delirium due to the fact that this can happen especially with elderly individuals that are in the hospital and the fact that she had already experienced a change in her behavior prior to admission. So, it turns out that last night she was transferred to the intensive care unit. Apparently, she was having trouble with her blood pressure and she had not been taking any of her blood pressure medications, but today she was more stable and was transferred out of the intensive care unit (ICU). Today, she is back to being completely catatonic and I was not really able to evaluate her because the patient was actually looking towards her right, she was laying in bed with her face looking towards her right, and she had her mouth opened, she was not responding to any questions. The nurse that was present told me that at one point the patient had squeezed her hand, but other than that she could not follow any other commands and when she tried to lift her arms they would just drop down. I even asked the nurse to rub a few drops of water in her face and apparently the only thing she did was blink a lot but there was no other response. In addition, this patient is supposed to be on Keppra and, according to the son, he thought the Keppra was for bipolar disorder as he does not feel she has any history of seizure disorder. However, one of the things that is being evaluated is if possibly her staring behavior could be seizure-like activity, and so apparently they had ordered an EEG. All of the studies, imaging that was done, CT scan and MRI, were negative so far. MENTAL STATUS EXAMINATION: Unable to complete. DIAGNOSES: Delirium. Catatonic episode. History of bipolar disorder. RECOMMENDATIONS: And so, I had recommended that after that first dose of Haldol 2 mg yesterday, that if the patient was not over-sedated, that she then be started on Haldol 5 mg twice a day, it has to be given intramuscular (IM) because she is not able to take any medications by mouth. It seems that today she has not been given any Haldol or any Ativan because, according to her doctor's note today, they thought that maybe it was the Ativan that caused her change in her medical condition and the reason why she had to be transferred to the intensive care unit (ICU) last night. I do want to clarify that if indeed this is a catatonic condition related to exacerbation of her bipolar disorder that Ativan is really the best thing to treat that, but of course only if you feel that there is no medical contraindication to the Ativan. Please re-consult as needed.
[2021-01-15] MEDS: PERPHENAZINE 2 MG TAB PO SCH ×3 (08:52→21:15)
[2021-01-15] MEDS: ASPIRIN 81 MG CHEW TABLET PO SCH (08:52)
[2021-01-15] MEDS: IRBESARTAN 150MG TAB PO SCH (08:52)
[2021-01-15] MEDS: PANTOPRAZOLE 40MG VIAL (C9113 PER 1) IV SCH (08:53)
[2021-01-15] MEDS: KCL 10MEQ/100ML SWI (KRUN) 10 MEQ in IV 1 EA IV SCH ×2 (08:53→10:20)
[2021-01-15] MEDS: ENOXAPARIN 40MG/0.4ML SYRINGE (J1650 PER 10MG) SC SCH (08:53)
[2021-01-15] MEDS: DIAPER RELIEF PASTE (DESITIN) 60GM TOP SCH ×3 (08:54→21:16)
[2021-01-15] MEDS: FLUTICASONE PROP 0.05% NASAL SPRAY 16 GM (FLONASE) SCH ×3 (08:54→21:16)
[2021-01-15] MEDS ORDERED: HALOPERIDOL 5MG/ML VIAL (J1630 PER 1) IM SCH (09:00)
[2021-01-15] MEDS ORDERED: KCL 10MEQ/100ML SWI (KRUN) 10 MEQ in IV 1 EA IV SCH (09:00)
[2021-01-15] MEDS ORDERED: LORazepam 2 MG/ML VIAL IV STA (10:15)
[2021-01-15] MEDS: levETIRAcetam INJection 500 MG in D5W MINI-BAG PLUS 100 ML IV SCH (11:46)
[2021-01-15] MEDS ORDERED: POTASSIUM CHLORIDE 10 MEQ SR TABLET PO ONE (13:00)
--- NOTE | 2021-01-15 13:21 | IPNPDOC ---
Text Note Date of Service The patient was seen on 01/15/21. NOTE Subjective: Patient was catatonic in the morning, unresponsive, after a dose of Haldol and lorazepam patient became alert, oriented and awake Objective: GENERAL APPEARANCE: Unresponsive HEENT: no scleral icterus, no JVD, EOMI CARDIOVASCULAR: S1S2 LUNGS: CTA ABDOMEN: soft & not tender w palpitation MUSCULOSKELETAL: no cyanosis, no swelling INTEGUMENT: no generalized pallor NEUROLOGICAL: moves four limbs, no nuchal rigidity Assessment/Plan Patient is 75 years old female with past medical history of bipolar disorder, hypertension, hyperlipidemia presented to hospital with altered mental status. According to her son who presented in the room patient developed altered mental status around 5 to 6 days ago and it became progressively worse. Patient was not able to communicate with me in the room. According to his son patient did not have any fever or chills, nausea, vomiting, diarrhea. In ER patient was found to have no leukocytosis, glucose level within normal limit, CT head negative for acute bleeding or stroke. Chest x-ray negative for acute disease. UA shows pyuria Problems (1) Acute metabolic encephalopathy/acute psychosis/bipolar disorder/delirium Most likely secondary to catatonia due to bipolar disorder superimposed with UTI UA shows pyuria, UA positive for Klebsiella species Continue ceftriaxone IV level of Keppra within normal limit brain MRI negative for acute intracranial abnormalities After Haldol IV and lorazepam IV acute metabolic encephalopathy resolved Await speech evaluation We will continue perphenazine, lorazepam p.o. 3 times daily (2) UTI (urinary tract infection) See above (3) HTN (hypertension) Continue home meds (4) Hypothyroid Continue levothyroxine (5) Seizure disorder he son denied that patient had history of seizures Seizures rule out, most likely patient received Keppra due to bipolar disorder (6) Zenkers diverticulum Aspiration precaution VS,Fishbone, I+O VS, Fishbone, I+O Laboratory Tests 01/15/21 05:38 Vital Signs Date Time Temp Pulse Resp B/P (MAP) Pulse Ox O2 Delivery O2 Flow Rate FiO2 01/15/21 06:00 98.1 86 18 138/72 (94) 97 Room Air I&O- Last 24 Hours up to 6 AM 01/15/21 06:00 Intake Total 2630 ml Output Total 5000 ml Balance -2370 ml DROZHZHIN,KATHIA DO Jan 15, 2021 13:20
[2021-01-15 14:00] VITALS: BP 149/94
[2021-01-15 14:00] LABS: BLOOD UREA NITROGEN 2 MG/DL (7-18); CALCIUM LEVEL 8.3 MG/DL (8.8-10.2); CARBON DIOXIDE LEVEL 29 MEQ/L (21-32); CHLORIDE LEVEL 102 MEQ/L (98-107); CREATININE FOR GFR 0.45 MG/DL (0.55-1.30); GLOMERULAR FILTRATION RATE > 60.0 (>39); GLUCOSE, FASTING 126 MG/DL (70-100); POTASSIUM SERUM 3.2 MEQ/L (3.5-5.1); SODIUM LEVEL 137 MEQ/L (136-145)
[2021-01-15] MEDS ORDERED: LORazepam 2 MG/ML VIAL IV ONE (14:00)
[2021-01-15] MEDS: LORazepam 1 MG TAB PO SCH ×3 (15:01→21:16)
[2021-01-15] MEDS: cefTRIAXone SOD 1 GM in D5W MINI-BAG PLUS 50 ML IV SCH (18:11)
[2021-01-15] MEDS: ATORVASTATIN 10 MG TAB PO SCH ×2 (21:00→21:16)
[2021-01-15] MEDS: levETIRAcetam 250MG TABLET (KEPPRA) PO SCH ×2 (21:00→21:16)
[2021-01-15 22:00] VITALS: BP 135/81
[2021-01-16] MEDS: D5W/0.45% SODIUM CHLORIDE 1,000 ML IV SCH ×2 (01:54→08:26)
[2021-01-16] MEDS: LEVOTHYROXINE 100MCG (0.1MG) VIAL IV SCH (05:50)
[2021-01-16 06:00] VITALS: BP 140/70
[2021-01-16 06:20] LABS: BASO % 0.3 % (0.0-1.0); EOS # 0.2 10^3/uL (0.0-0.5); EOS % 3.3 % (0.0-3.0); HEMATOCRIT 35.9 % (36.0-47.0); HEMOGLOBIN 12.2 g/dl (12.0-15.5); LYMPH # 1.2 10^3/uL (1.5-5.0); LYMPH % 18.5 % (24.0-44.0); MEAN CORPUSCULAR HEMOGLOBIN 29.5 pg (27.0-33.0); MEAN CORPUSCULAR VOLUME 86.9 fl (80.0-96.0); MONO # 0.8 10^3/uL (0.0-0.8); MONO % 12.6 % (2.0-8.0); NEUTROPHILS # 4.2 10^3/uL (1.5-8.5); NEUTROPHILS % 65.1 % (36.0-66.0); PLATELET COUNT, AUTOMATED 293 10^3/uL (150-450); RED BLOOD COUNT 4.13 10^6/uL (4.00-5.40); WHITE BLOOD COUNT 6.4 10^3/uL (4.0-10.0)
[2021-01-16 06:49] LABS: ALBUMIN 2.5 GM/DL (3.2-5.2); ALT/SGPT 42 U/L (12-78); BILIRUBIN,TOTAL 0.3 MG/DL (0.2-1.0); BLOOD UREA NITROGEN 2 MG/DL (7-18); CALCIUM LEVEL 8.4 MG/DL (8.8-10.2); CARBON DIOXIDE LEVEL 31 MEQ/L (21-32); CHLORIDE LEVEL 101 MEQ/L (98-107); CREATININE FOR GFR 0.44 MG/DL (0.55-1.30); GLOMERULAR FILTRATION RATE > 60.0 (>39); GLUCOSE, FASTING 125 MG/DL (70-100); POTASSIUM SERUM 2.8 MEQ/L (3.5-5.1); SODIUM LEVEL 138 MEQ/L (136-145); TOTAL PROTEIN 5.9 GM/DL (6.4-8.2)
[2021-01-16] MEDS ORDERED: POTASSIUM CHLORIDE 10 MEQ SR TABLET PO SCH (07:00)
--- NOTE | 2021-01-16 07:05 | IPNPDOC ---
Date Seen The patient was seen on 01/16/21. Progress Note K 2.8 pt refuses to take po meds. changed to iv kruns. repeat k at noon VS, I&O, 24H, Fishbone Vital Signs/I&O Vital Signs Date Time Temp Pulse Resp B/P (MAP) Pulse Ox O2 Delivery O2 Flow Rate FiO2 01/15/21 22:00 97.6 81 16 135/81 (99) 99 Room Air I&O- Last 24 Hours up to 6 AM 01/16/21 06:00 Intake Total 1430 ml Output Total 2550 ml Balance -1120 ml Laboratory Data 24H LABS Laboratory Tests 2 01/15/21 13:15: Anion Gap 6L, Glomerular Filtration Rate > 60.0, Calcium Level 8.3L 01/16/21 06:08: Anion Gap 6L, Glomerular Filtration Rate > 60.0, Calcium Level 8.4L, Immature Granulocyte % (Auto) 0.2, Neutrophils (%) (Auto) 65.1, Lymphocytes (%) (Auto) 18.5L, Monocytes (%) (Auto) 12.6H, Eosinophils (%) (Auto) 3.3H, Basophils (%) (Auto) 0.3, Neutrophils # (Auto) 4.2, Lymphocytes # (Auto) 1.2L, Monocytes # (Auto) 0.8, Eosinophils # (Auto) 0.2, Basophils # (Auto) 0.0, Nucleated Red Blood Cells % (auto) 0.0, Magnesium Level 2.0, Total Bilirubin 0.3, Aspartate Amino Transf (AST/SGOT) 35, Alanine Aminotransferase (ALT/SGPT) 42, Alkaline Phosphatase 64, Total Protein 5.9L, Albumin 2.5L, Albumin/Globulin Ratio 0.7L CBC/BMP Laboratory Tests 01/15/21 13:15 01/16/21 06:08 Microbiology Microbiology 01/12/21 Blood Culture - Preliminary, Resulted No Growth after 72 hours. All specime... 01/12/21 Blood Culture - Preliminary, Resulted No Growth after 72 hours. All specime... 01/11/21 Urine Culture - Final, Complete Klebsiella GREG Mendez MD Jan 16, 2021 07:05
[2021-01-16] MEDS: KCL 10MEQ/100ML SWI (KRUN) 10 MEQ in IV 1 EA IV SCH ×4 (07:10→10:56)
[2021-01-16] MEDS: ENOXAPARIN 40MG/0.4ML SYRINGE (J1650 PER 10MG) SC SCH (08:24)
[2021-01-16] MEDS: DIAPER RELIEF PASTE (DESITIN) 60GM TOP SCH ×2 (08:25→20:46)
[2021-01-16] MEDS: LORazepam 1 MG TAB PO SCH ×3 (09:32→20:44)
[2021-01-16] MEDS: ASPIRIN 81 MG CHEW TABLET PO SCH (09:32)
[2021-01-16] MEDS: levETIRAcetam 250MG TABLET (KEPPRA) PO SCH ×2 (09:32→20:45)
[2021-01-16] MEDS: PANTOPRAZOLE 40MG TAB (PROTONIX) PO SCH (09:33)
[2021-01-16] MEDS: PERPHENAZINE 2 MG TAB PO SCH ×2 (09:33→20:45)
[2021-01-16] MEDS: IRBESARTAN 150MG TAB PO SCH (09:33)
[2021-01-16] MEDS: FLUTICASONE PROP 0.05% NASAL SPRAY 16 GM (FLONASE) SCH ×2 (09:34→20:46)
--- NOTE | 2021-01-16 12:52 | IPNPDOC ---
Text Note Date of Service The patient was seen on 01/16/21. NOTE Subjective: Patient had a few episodes of catatonia in the morning. When I saw patient she was able to answer my questions and she was oriented and awake Objective: GENERAL APPEARANCE: NAD HEENT: no scleral icterus, no JVD, EOMI CARDIOVASCULAR: S1S2 LUNGS: CTA ABDOMEN: soft & not tender w palpitation MUSCULOSKELETAL: no cyanosis, no swelling INTEGUMENT: no generalized pallor NEUROLOGICAL: moves four limbs, no nuchal rigidity, cranial nerves II to XII intact Assessment/Plan Patient is 75 years old female with past medical history of bipolar disorder, hypertension, hyperlipidemia presented to hospital with altered mental status. According to her son who presented in the room patient developed altered mental status around 5 to 6 days ago and it became progressively worse. Patient was not able to communicate with me in the room. According to his son patient did not have any fever or chills, nausea, vomiting, diarrhea. In ER patient was found to have no leukocytosis, glucose level within normal limit, CT head negative for acute bleeding or stroke. Chest x-ray negative for acute disease. UA shows pyuria Problems (1) Acute metabolic encephalopathy/acute psychosis/bipolar disorder/delirium Most likely secondary to catatonia due to bipolar disorder superimposed with UTI UA shows pyuria, UA positive for Klebsiella species Patient completed course of ceftriaxone IV level of Keppra within normal limit brain MRI negative for acute intracranial abnormalities After Haldol IV and lorazepam IV acute metabolic encephalopathy significantly im proved yesterday. We restarted perphenazine, lorazepam p.o. 3 times daily. However in the morning patient refused to take p.o. medications. If patient refuses p.o. meds we will continue IV Haldol and IV lorazepam Await speech evaluation (2) UTI (urinary tract infection) See above (3) HTN (hypertension) Continue home meds (4) Hypothyroid Continue levothyroxine (5) Seizure disorder rule out he son denied that patient had history of seizures Seizures rule out, most likely patient received Keppra due to bipolar disorder (6) Zenkers diverticulum Aspiration precaution VS,Fishbone, I+O VS, Fishbone, I+O Laboratory Tests 01/15/21 13:15 01/16/21 06:08 01/16/21 11:53 Vital Signs Date Time Temp Pulse Resp B/P (MAP) Pulse Ox O2 Delivery O2 Flow Rate FiO2 01/16/21 09:33 163/90 01/16/21 06:00 97.2 85 17 95 Room Air I&O- Last 24 Hours up to 6 AM 01/16/21 06:00 Intake Total 1430 ml Output Total 3150 ml Balance -1720 ml KATHIA HILARIO DO Jan 16, 2021 12:52
[2021-01-16 14:00] VITALS: BP 148/92
[2021-01-16] MEDS: LORazepam 2 MG/ML VIAL IV SCH ×2 (16:00→21:00)
[2021-01-16] MEDS: ATORVASTATIN 10 MG TAB PO SCH (20:45)
[2021-01-16] MEDS: HALOPERIDOL 5MG/ML VIAL (J1630 PER 1) IM SCH (21:00)
[2021-01-16] MEDS ORDERED: LORazepam 2 MG/ML VIAL IV SCH (21:00)
[2021-01-16 21:53] VITALS: BP 151/91
[2021-01-17] MEDS: LEVOTHYROXINE 100MCG (0.1MG) VIAL IV SCH (05:41)
[2021-01-17 07:08] LABS: BASO % 0.8 % (0.0-1.0); EOS # 0.2 10^3/uL (0.0-0.5); EOS % 3.8 % (0.0-3.0); HEMATOCRIT 38.1 % (36.0-47.0); HEMOGLOBIN 12.7 g/dl (12.0-15.5); LYMPH # 1.2 10^3/uL (1.5-5.0); LYMPH % 22.9 % (24.0-44.0); MEAN CORPUSCULAR HEMOGLOBIN 29.3 pg (27.0-33.0); MEAN CORPUSCULAR HGB CONC 33.3 g/dl (32.0-36.5); MEAN CORPUSCULAR VOLUME 87.8 fl (80.0-96.0); MONO # 0.7 10^3/uL (0.0-0.8); MONO % 14.1 % (2.0-8.0); NEUTROPHILS # 3.1 10^3/uL (1.5-8.5); NEUTROPHILS % 58.2 % (36.0-66.0); PLATELET COUNT, AUTOMATED 319 10^3/uL (150-450); RED BLOOD COUNT 4.34 10^6/uL (4.00-5.40); WHITE BLOOD COUNT 5.3 10^3/uL (4.0-10.0)
[2021-01-17 07:37] LABS: ALBUMIN 2.5 GM/DL (3.2-5.2); ALT/SGPT 55 U/L (12-78); BILIRUBIN,TOTAL 0.4 MG/DL (0.2-1.0); BLOOD UREA NITROGEN 5 MG/DL (7-18); CALCIUM LEVEL 8.7 MG/DL (8.8-10.2); CARBON DIOXIDE LEVEL 31 MEQ/L (21-32); CHLORIDE LEVEL 102 MEQ/L (98-107); CREATININE FOR GFR 0.52 MG/DL (0.55-1.30); GLOMERULAR FILTRATION RATE > 60.0 (>39); GLUCOSE, FASTING 106 MG/DL (70-100); MAGNESIUM LEVEL 2.3 MG/DL (1.8-2.4); SODIUM LEVEL 138 MEQ/L (136-145); TOTAL PROTEIN 6.2 GM/DL (6.4-8.2)
[2021-01-17] MEDS: HALOPERIDOL 5MG/ML VIAL (J1630 PER 1) IM SCH (09:00)
[2021-01-17] MEDS: LORazepam 2 MG/ML VIAL IV SCH (09:00)
[2021-01-17] MEDS: PANTOPRAZOLE 40MG TAB (PROTONIX) PO SCH (09:46)
[2021-01-17] MEDS: KCL 10MEQ/100ML SWI (KRUN) 10 MEQ in IV 1 EA IV SCH ×2 (09:46→10:00)
[2021-01-17] MEDS: ENOXAPARIN 40MG/0.4ML SYRINGE (J1650 PER 10MG) SC SCH (09:46)
[2021-01-17] MEDS: FLUTICASONE PROP 0.05% NASAL SPRAY 16 GM (FLONASE) SCH ×2 (09:46→21:22)
[2021-01-17] MEDS: ASPIRIN 81 MG CHEW TABLET PO SCH (09:47)
[2021-01-17] MEDS: IRBESARTAN 150MG TAB PO SCH (09:47)
[2021-01-17] MEDS: levETIRAcetam 250MG TABLET (KEPPRA) PO SCH ×2 (09:47→21:21)
[2021-01-17] MEDS: PERPHENAZINE 2 MG TAB PO SCH ×2 (09:47→21:22)
[2021-01-17] MEDS: LORazepam 1 MG TAB PO SCH ×3 (09:47→21:21)
[2021-01-17] MEDS: DIAPER RELIEF PASTE (DESITIN) 60GM TOP SCH ×2 (09:49→21:22)
--- NOTE | 2021-01-17 11:52 | IPNPDOC ---
Text Note Date of Service The patient was seen on 01/17/21. NOTE Subjective: Patient alert, oriented in the morning. She took her p.o. medica tions in the evening and today in the morning Objective: GENERAL APPEARANCE: NAD HEENT: no scleral icterus, no JVD, EOMI CARDIOVASCULAR: S1S2 LUNGS: CTA ABDOMEN: soft & not tender w palpitation MUSCULOSKELETAL: no cyanosis, no swelling INTEGUMENT: no generalized pallor NEUROLOGICAL: moves four limbs, no nuchal rigidity, cranial nerves II to XII intact Assessment/Plan Patient is 75 years old female with past medical history of bipolar disorder, hypertension, hyperlipidemia presented to hospital with altered mental status. According to her son who presented in the room patient developed altered mental status around 5 to 6 days ago and it became progressively worse. Patient was not able to communicate with me in the room. According to his son patient did not have any fever or chills, nausea, vomiting, diarrhea. In ER patient was found to have no leukocytosis, glucose level within normal limit, CT head negative for acute bleeding or stroke. Chest x-ray negative for acute disease. UA shows pyuria Problems (1) Acute metabolic encephalopathy/acute psychosis/bipolar disorder/delirium Most likely secondary to catatonia due to bipolar disorder superimposed with UTI UA shows pyuria, UA positive for Klebsiella species Patient completed course of ceftriaxone IV level of Keppra within normal limit brain MRI negative for acute intracranial abnormalities We restarted perphenazine, lorazepam p.o. 3 times daily. If patient refuses p.o. meds we will continue IV Haldol and IV lorazepam Continue diet according to speech recommendation [facility] (2) UTI (urinary tract infection) See above (3) HTN (hypertension) Continue home meds (4) Hypothyroid Continue levothyroxine (5) Seizure disorder rule out he son denied that patient had history of seizures Seizures rule out, most likely patient received Keppra due to bipolar disorder (6) Zenkers diverticulum Aspiration precaution Hypokalemia Replaced Patient will be transferred to [facility] status Alex MELTON, I+O Alex MELTON, I+O Laboratory Tests 01/16/21 11:53 01/17/21 06:37 Vital Signs Date Time Temp Pulse Resp B/P (MAP) Pulse Ox O2 Delivery O2 Flow Rate FiO2 01/17/21 09:47 145/85 01/16/21 21:53 98.5 97 18 97 Room Air I&O- Last 24 Hours up to 6 AM 01/17/21 06:00 Intake Total 240 ml Output Total 2500 ml Balance -2260 ml KATHIA HILARIO DO Jan 17, 2021 11:52
[2021-01-17] MEDS ORDERED: KCL 10MEQ/100ML SWI (KRUN) 10 MEQ in IV 1 EA IV ONE (12:00)
[2021-01-17] MEDS ORDERED: POTA1TAB14 PO (12:57)
[2021-01-17] MEDS: ATORVASTATIN 10 MG TAB PO SCH (21:22)
[2021-01-17 22:00] VITALS: BP 148/85
[2021-01-18 06:00] VITALS: BP 113/66
[2021-01-18 06:37] LABS: BASO % 0.6 % (0.0-1.0); EOS # 0.2 10^3/uL (0.0-0.5); EOS % 4.3 % (0.0-3.0); HEMATOCRIT 34.9 % (36.0-47.0); HEMOGLOBIN 11.6 g/dl (12.0-15.5); LYMPH # 1.3 10^3/uL (1.5-5.0); LYMPH % 26.7 % (24.0-44.0); MEAN CORPUSCULAR HGB CONC 33.2 g/dl (32.0-36.5); MEAN CORPUSCULAR VOLUME 87.3 fl (80.0-96.0); MONO # 0.6 10^3/uL (0.0-0.8); MONO % 13.3 % (2.0-8.0); NEUTROPHILS # 2.7 10^3/uL (1.5-8.5); NEUTROPHILS % 54.9 % (36.0-66.0); PLATELET COUNT, AUTOMATED 312 10^3/uL (150-450); WHITE BLOOD COUNT 4.8 10^3/uL (4.0-10.0)
[2021-01-18 06:59] LABS: ALBUMIN 2.4 GM/DL (3.2-5.2); ALT/SGPT 61 U/L (12-78); BILIRUBIN,TOTAL 0.4 MG/DL (0.2-1.0); BLOOD UREA NITROGEN 7 MG/DL (7-18); CALCIUM LEVEL 8.4 MG/DL (8.8-10.2); CARBON DIOXIDE LEVEL 30 MEQ/L (21-32); CHLORIDE LEVEL 103 MEQ/L (98-107); CREATININE FOR GFR 0.48 MG/DL (0.55-1.30); GLOMERULAR FILTRATION RATE > 60.0 (>39); GLUCOSE, FASTING 94 MG/DL (70-100); POTASSIUM SERUM 3.5 MEQ/L (3.5-5.1); SODIUM LEVEL 139 MEQ/L (136-145); TOTAL PROTEIN 5.5 GM/DL (6.4-8.2)
[2021-01-18] MEDS: LEVOTHYROXINE 100MCG (0.1MG) VIAL IV SCH (06:59)
[2021-01-18 07:00] LABS: MAGNESIUM LEVEL 2.1 MG/DL (1.8-2.4)
[2021-01-18] MEDS: ENOXAPARIN 40MG/0.4ML SYRINGE (J1650 PER 10MG) SC SCH (08:29)
[2021-01-18 08:30] VITALS: BP 113/66
[2021-01-18] MEDS: PERPHENAZINE 2 MG TAB PO SCH (08:30)
[2021-01-18] MEDS: ASPIRIN 81 MG CHEW TABLET PO SCH (08:30)
[2021-01-18] MEDS: LORazepam 1 MG TAB PO SCH (08:30)
[2021-01-18] MEDS: PANTOPRAZOLE 40MG TAB (PROTONIX) PO SCH (08:30)
[2021-01-18] MEDS: IRBESARTAN 150MG TAB PO SCH (08:30)
[2021-01-18] MEDS: levETIRAcetam 250MG TABLET (KEPPRA) PO SCH (08:30)
[2021-01-18] MEDS: FLUTICASONE PROP 0.05% NASAL SPRAY 16 GM (FLONASE) SCH (08:31)
[2021-01-18] MEDS: DIAPER RELIEF PASTE (DESITIN) 60GM TOP SCH (08:31)
[2021-01-18] MEDS ORDERED: ATIV1TAB7 PO (10:59)
--- NOTE | 2021-01-18 11:24 | EEG ---
ELECTROENCEPHALOGRAM DATE: 01/14/2021 REFERRING PHYSICIAN: KATHIA HILARIO DO DIAGNOSIS: Altered mental status. EEG#: [id number] HISTORY: The patient is a 75-year-old woman who was admitted to [facility] due to bipolar disorder, altered mental status. TECHNICAL DESCRIPTION: This digital electroencephalogram (EEG) was recorded by 21 scalp, ear, and two electrocardiogram (EKG) electrodes and was reviewed in bipolar and referential montages following reformatting in 10-20 international electrode placement system. INTERPRETATION: The patient was noted to be in awake and drowsy states during this EEG. Resting and awake background rhythm consisted of 8-9 Hz alpha activity measuring 15-40 microvolts in amplitude which was symmetric and reactive to eye opening. Attenuation of posterior dominant rhythm was seen during transition to drowsiness. Intermittent bilateral temporal theta slowing was noted. No clear epileptiform abnormalities were seen. Hyperventilation was not performed. Photic stimulation remained unremarkable. EKG revealed sinus rhythm. No relevant clinical activity was noted. CONCLUSION: This EEG in awake and drowsy states is abnormal due to presence of mild intermittent temporal slowing consistent with nonspecific cerebral dysfunction such as seen in mild encephalopathy due to multiple potential causes including toxic, metabolic, medications related, or structural brain abnormalities. Clinical correlation is recommended.
[2021-01-18 14:00] VITALS: BP 148/74
--- NOTE | 2021-01-18 15:28 | DS.PDOC ---
Discharge Summary General Date of Admission Jan 11, 2021 at 18:13 Date of Discharge 01/18/21 Discharge Summary PROCEDURES PERFORMED DURING STAY: [None]. ADMITTING DIAGNOSES: Acute metabolic encephalopathy/acute psychosis/bipolar disorder/delirium UTI (urinary tract infection) HTN (hypertension) Hypothyroid Seizure disorder rule out Zenkers diverticulum Hypokalemia DISCHARGE DIAGNOSES: Acute metabolic encephalopathy/acute psychosis/bipolar disorder/delirium UTI (urinary tract infection) HTN (hypertension) Hypothyroid Seizure disorder rule out Zenkers diverticulum Hypokalemia COMPLICATIONS/CHIEF COMPLAINT: UTI. HISTORY OF PRESENT ILLNESS: Patient is 75 years old female with past medical history of bipolar disorder, hypertension, hyperlipidemia presented to hospital with altered mental status. According to her son who presented in the room patient developed altered mental status around 5 to 6 days ago and it became progressively worse. Patient was not able to communicate with me in the room. According to his son patient did not have any fever or chills, nausea, vomiting, diarrhea. In ER patient was found to have no leukocytosis, glucose level within normal limit, CT head negative for acute bleeding or stroke. Chest x-ray negative for acute disease. UA shows pyuria HOSPITAL COURSE: During the hospital stay the following issue addressed (1) Acute metabolic encephalopathy/acute psychosis/bipolar disorder/delirium Most likely secondary to catatonia due to bipolar disorder superimposed with UT I UA shows pyuria, UA positive for Klebsiella species Patient completed course of ceftriaxone IV level of Keppra within normal limit brain MRI negative for acute intracranial abnormalities We restarted perphenazine, lorazepam p.o. 3 times daily. Subsequently after restarting these medications altered mental status resolved (2) UTI (urinary tract infection) See above (3) HTN (hypertension) Continue home meds (4) Hypothyroid Continue levothyroxine (5) Seizure disorder rule out he son denied that patient had history of seizures Seizures rule out, most likely patient received Keppra due to bipolar disorder (6) Zenkers diverticulum Aspiration precaution Hypokalemia DISCHARGE MEDICATIONS: Please see below. ALLERGIES: Please see below. PHYSICAL EXAMINATION ON DISCHARGE: VITAL SIGNS: Please see below. GENERAL APPEARANCE: NAD HEENT: no scleral icterus, no JVD, EOMI CARDIOVASCULAR: S1S2 LUNGS: CTA ABDOMEN: soft & not tender w palpitation MUSCULOSKELETAL: no cyanosis, no swelling INTEGUMENT: no generalized pallor NEUROLOGICAL: moves four limbs, no nuchal rigidity, cranial nerves II to XII intact LABORATORY DATA: Please see below. PROGNOSIS: Fair ACTIVITY: [As tolerated]. DIET: Cardiac ITEMS TO FOLLOWUP ON ON OUTPATIENT: Follow-up with psychiatrist and PCP DISCHARGE CONDITION: [Stable]. TIME SPENT ON DISCHARGE: 40 minutes. Vital Signs/I&Os Vital Signs Date Time Temp Pulse Resp B/P (MAP) Pulse Ox O2 Delivery O2 Flow Rate FiO2 01/18/21 14:00 98.7 91 14 148/74 (98) 95 Room Air I&O- Last 24 Hours up to 6 AM 01/18/21 06:00 Intake Total 1150 ml Output Total 2625 ml Balance -1475 ml Laboratory Data Labs 24H Laboratory Tests 2 01/18/21 06:10: Immature Granulocyte % (Auto) 0.2, Neutrophils (%) (Auto) 54.9, Lymphocytes (%) (Auto) 26.7, Monocytes (%) (Auto) 13.3H, Eosinophils (%) (Auto) 4.3H, Basophils (%) (Auto) 0.6, Neutrophils # (Auto) 2.7, Lymphocytes # (Auto) 1.3L, Monocytes # (Auto) 0.6, Eosinophils # (Auto) 0.2, Basophils # (Auto) 0.0, Nucleated Red Blood Cells % (auto) 0.0, Anion Gap 6L, Glomerular Filtration Rate > 60.0, Calcium Level 8.4L, Magnesium Level 2.1, Total Bilirubin 0.4, Aspartate Amino Transf (AST/SGOT) 45H, Alanine Aminotransferase (ALT/SGPT) 61, Alkaline Phosphatase 65, Total Protein 5.5L, Albumin 2.4L, Albumin/Globulin Ratio 0.8L CBC/BMP Laboratory Tests 01/18/21 06:10 Microbiology Microbiology 01/12/21 Blood Culture - Final, Complete NO GROWTH AFTER 5 DAYS 01/12/21 Blood Culture - Final, Complete NO GROWTH AFTER 5 DAYS 01/11/21 Urine Culture - Final, Complete Klebsiella Ozaenae Discharge Medications Scheduled Aspirin (Aspirin) 81 Mg Tab.chew, 81 MG PO DAILY, (Reported) Atorvastatin Calcium (Atorvastatin Calcium) 10 Mg Tablet, 10 MG PO QHS, (Repo rted) Fluticasone Propionate (Fluticasone Propionate) [address] [place].susp, 1 SPRAY NA BID, (Reported) Irbesartan (Avapro) 300 Mg Tablet, 300 MG PO DAILY, (Reported) Levetiracetam (Keppra) 500 Mg Tablet, 500 MG PO BID, (Reported) Levothyroxine Sodium (Synthroid) 75 Mcg Tablet, 75 MCG PO DAILY, (Reported) Lorazepam (Ativan) 1 Mg Tablet, 1 MG PO TID Metoprolol Tartrate (Metoprolol Tartrate) 50 Mg Tablet, 50 MG PO BID, (Reported) Omeprazole Magnesium (Prilosec Otc) 20 Mg Tablet.dr, 20 MG PO DAILY, (Reported) Perphenazine (Perphenazine) 8 Mg Tablet, 8 MG PO DAILY, (Reported) Perphenazine (Perphenazine) 8 Mg Tablet, 16 MG PO QHS, (Reported) Potassium Chloride (Potassium Chloride) 20 Meq Tablet.er, 40 MEQ PO DAILY Scheduled PRN Acetaminophen (Acetaminophen) 325 Mg Tablet, 325 MG PO Q6H PRN for PAIN LEVEL 1- 5, (Reported) Allergies Coded Allergies: No Known Allergies (Unverified , 10/05/18) KATHIA HILARIO DO Jan 18, 2021 15:28
--- NOTE | 2021-01-22 16:13 | MHIPN ---
[facility] PROGRESS NOTE DATE: 01/18/2021 I do want to clarify that I did not see the patient today. The plan was to transfer the patient to the psychiatric unit for further stabilization, but I received a phone call from Dr. Holman, who advised me that the patient wanted to go home, that she was alert and oriented, she was clear, and her son wanted to take her home. Therefore, it appears that the patient has cleared from a psychiatric point of view and transfer to the psychiatric unit is no longer necessary.
== END 2021-01-18 15:36 | disposition home or self-care (01) | DRG 689 ==
LOC: M ED 12:10 → M ED INP 18:13 → ENRESERV 21:11 → M MSPAV 21:30 → M ICU 01-13 14:59 → M MSPAV 01-14 11:35
PROVIDERS: ADMIT Internal Medicine; ATTEND Internal Medicine
DX: N39.0 Urinary tract infection, site not specified (principal); G93.41 Metabolic encephalopathy; E03.9 Hypothyroidism, unspecified; I10 Essential (primary) hypertension; K22.5 Diverticulum of esophagus, acquired; R41.0 Disorientation, unspecified; E87.6 Hypokalemia; F31.9 Bipolar disorder, unspecified; R40.1 Stupor; K21.9 Gastro-esophageal reflux disease without esophagitis; B96.1 Klebsiella pneumoniae [K. pneumoniae] as the cause of diseases classified elsewhere; M17.0 Bilateral primary osteoarthritis of knee; Z86.718 Personal history of other venous thrombosis and embolism; Z86.711 Personal history of pulmonary embolism; Z79.82 Long term (current) use of aspirin; Z79.899 Other long term (current) drug therapy

== ENCOUNTER → 2023-05-12 | Outpatient (REF) | payer MEDICARE, OTHER ==
[~2023-05-12] MED LIST changes: +ALBU2.5V10 NEB; -ALBU83IN NEB; +APAP325T4 PO; +ATIV1TAB7 PO; +FLUT50SP17; +FLUT50SP17 NARES; -FLUTISP NARES; +NYST-13 TOP; -NYST10CR TOP; +POTA-298 PO; +PRIL20TA2 PO; +RAME8TAB2 PO; +SYNT75TA PO
== END ==
LOC: M LAB REF 16:21
PROVIDERS: ATTEND Family Medicine
DX: N39.0 Urinary tract infection, site not specified (principal)

== ENCOUNTER → 2024-05-19 | Outpatient (REF) | payer MEDICARE, OTHER ==
[~2024-05-19] MED LIST changes: -AUGM0.05 EXT; +AUGM0.0511 EXT; -FLUT50SP17; -FLUT50SP17 NARES; +FLUTISP; +FLUTISP NARES; +IRBE300T25 PEG; +IRBE300T25 PO; -IRBE300T7 PEG; -IRBE300T7 PO; +NYST1POW3 TOP; -NYST1POW9 TOP; -POTA20EL PEG; +POTA20LI16 PEG
== END ==
LOC: M LAB REF 13:27
PROVIDERS: ATTEND Family Medicine
DX: F31.70 Bipolar disorder, currently in remission, most recent episode unspecified (principal)

== ENCOUNTER → 2024-10-05 | Outpatient (CLI) | payer MEDICARE, OTHER | LOC: M RAD 10:20 | PROVIDERS: ATTEND Family Medicine | DX: Z01.89 Encounter for other specified special examinations (principal) ==

== ENCOUNTER → 2024-11-03 | Outpatient (CLI) | payer MEDICARE, OTHER ==
[~2024-11-03] MED LIST changes: +ISOVUE-370 76% 100ML VIAL As Ordered ONE; -MYCO15CR TOP; -NYST-13 TOP; +NYST0.1C TOP; +NYST15CR12 TOP
== END ==
LOC: M RAD 14:21
PROVIDERS: ATTEND Family Medicine
DX: D41.00 Neoplasm of uncertain behavior of unspecified kidney (principal)
CPT/HCPCS: 74170; Q9967